=== PATIENT | female | born 1950 | race Caucasian/White ===

== ENCOUNTER 2018-02-21 18:04 | Inpatient (IN) | payer OTHER, MEDICAID ==
[~2018-02-21] VITALS: Ht 142.2 cm; Wt 125.2 kg
--- NOTE | 2018-02-21 18:00 | NUR ---
PATIENT ARRIVED VIA ON VENT FROM [facility]. PLACED ON VENTILATOR AC-12, 550, 100%, PEEP+5. SAO2-88% RR24 WITH ACCESSORY USE OF MUSCLES HR 118. SHILEY 8 XLT TRACHEOSTOMY TUBE WAS FOUND DEFLATED AND PARTIALLY OUT, I PUSHED TRACH BACK IN AND INFLATED CUFF, TIGHTEN TRACH TIES TO OBTAIN TIDAL VOLUMES. SAO2 INCREASED TO 92% RR- DECREASED TO 12 HR-111. AT 1950 ABG DONE AND RESULTS GIVEN TO DR. PERRY. DR. RICHMOND SAID TO INCREASE RR TO 18BPM.
[~2018-02-21 18:04] MED LIST: ACET-2619 PO; ASPI81CT89 PO; ATRN INH; BECL0.089 INH; BISA10SU1 RC; DOCU-299 PO; DOCU1TAB PO; EPOE10002 SUBQ; ESCI5TAB PO; ESOM40EC PO; FERR325E14 PO; FOLI1TAB19 PO; FURO-570 PO; GLU1I IM; LISI5TAB18 PO; MAGN400S60 PO; MAGN400T11 PO; METO5SOL19 PO; NA P135N9 RC; NOVN SUBQ; POLY15SO48 OP; PRON INH; SIMV20TA1 PO; VIC PO; [UNRECOGNIZED DRUG - CODE] PO
--- NOTE | 2018-02-21 18:07 | NUR ---
PT BIBA ALS TO BED 5
[2018-02-21 18:10] VITALS: BP 188/116
--- NOTE | 2018-02-21 18:10 | NUR ---
67 YO FEMALE BIB EMS FROM [facility] FOR ABDOMINAL PAIN AND SWELLING TO FACE AND LEGS. VENT TO TRACH RT AT BEDSIDE. pt nonverbal, respiratory distress noted. attached pt trach to vent, hooked pt to bedside monitor shows hr 150s, bp 188/116, o2 sats 80%, RESPIRATORY DISTRESS NOTED. PT UNABLE TO MAKE NEEDS KNOWN, EDEMA TO BOTH LEGS NOTED. MD MADE AWARE PT STATUS.
[2018-02-21] MEDS ORDERED: LINA5TAB PO (18:30)
[2018-02-21] MEDS ORDERED: LEVEMIR SUBQ (18:30)
[2018-02-21 18:32] VITALS: BP 153/78
[2018-02-21] MEDS ORDERED: methylPREDNISolone SS 125 MG/2 ML VIAL IVP ONE (18:35)
[2018-02-21] MEDS ORDERED: ALBUTEROL 0.083% 2.5 MG/3 ML NEBU INH ONE (18:35)
[2018-02-21] MEDS ORDERED: IPRATROPIUM 0.02% 0.5 MG/2.5 ML NEBU INH ONE (18:35)
--- NOTE | 2018-02-21 18:48 | NUR ---
XRAY AT BEDSIDE
[2018-02-21] MEDS ORDERED: FUROSEMIDE 100 MG/10 ML VIAL IVP ONE (18:55)
[2018-02-21] MEDS ORDERED: DEXAMETHASONE 10 MG/ML VIAL IVP ONE (18:55)
--- NOTE | 2018-02-21 19:15 | NUR ---
REPORT GIVEN TO BIBI
--- NOTE | 2018-02-21 19:15 | NUR ---
ASSUMED CARE OF PT AT THIS TIME. PT AWAITS LAB RESULTS AND MD DISPOSITION. WILL CONTINUE TO MONITOR.
[2018-02-21] MEDS ORDERED: DEXAMETHASONE 10 MG/ML VIAL ONE (19:30)
[2018-02-21 19:47] LABS: HEMATOCRIT 36.6 % (36-48); HEMOGLOBIN 11.6 g/dL (12.0-16.0); MEAN CORPUSCULAR HEMOGLOBIN 30 pg (27-31); MEAN CORPUSCULAR HGB CONC 32 g/dL (33-37); MEAN CORPUSCULAR VOLUME 94.2 fL (80-94); PLATELET COUNT (AUTO) 303 K/uL (140-450); RED BLOOD CELL COUNT(AUTO) 3.88 MIL/uL (4.20-5.40); RED CELL DISTRIBUTION WIDTH 15.3 % (11.6-13.7); WHITE BLOOD COUNT (AUTO) 21.4 K/uL (4.8-10.8)
[2018-02-21 20:08] LABS: PROTHROMBIN TIME 9.8 secs (10.8-13.4)
[2018-02-21 20:10] LABS: ANION GAP 11.4 (8-16); CARBON DIOXIDE 23.1 mmol/L (21-32); CREATININE 1.2 mg/dL (0.6-1.3); POTASSIUM 5.5 mmol/L (3.5-5.1)
[2018-02-21 20:15] LABS: ALBUMIN 3.5 g/dL (3.4-5.0); TOTAL BILIRUBIN 0.2 mg/dL (0.0-1.0)
[2018-02-21 20:31] LABS: EOSINOPHILS % (MANUAL) 2 % (0-4); LYMPHOCYTES % (MANUAL) 14 % (20-46); MONOCYTES % (MANUAL) 1 % (5-12); PROMYELOCYTES % 2 % (0-0)
[2018-02-21] MEDS ORDERED: PIPERACILLIN/TAZOBACTAM 3.375 GM in DEXTROSE 5% 50 ML IV ONE (20:45)
[2018-02-21] MEDS ORDERED: FUROSEMIDE 40 MG/4 ML VIAL IVP ONE (20:45)
[2018-02-21] MEDS ORDERED: LEVOFLOXACIN 750 MG/D5W PREMIX 150 ML IV ONE (20:45)
[2018-02-21] MEDS ORDERED: NITROGLYCERIN 2% 1 GM PKT TP ONE (20:45)
[2018-02-21] MEDS ORDERED: PIPERACILLIN/TAZOBACTAM 3.375 GM VIAL IV ONE (20:59)
[2018-02-21 21:08] VITALS: BP 132/28
[2018-02-21] MEDS ORDERED: ONDANSETRON 4 MG/2 ML VIAL IVP ONE (21:10)
--- NOTE | 2018-02-21 21:15 | NUR ---
PT AWAITS ADMISSION. NAD. VSS. WILL CONTINUE TO MONITOR.
[2018-02-21] MEDS ORDERED: ONDANSETRON 4 MG/2 ML VIAL ONE (21:16)
--- NOTE | 2018-02-21 21:46 | NUR ---
RT AT BEDSIDE
[2018-02-21] MEDS ORDERED: ACETAMINOPHEN 325 MG TAB PO PRN (22:15)
[2018-02-21] MEDS ORDERED: DEXTROSE 50% 50 ML SYR IVP PRN (22:15)
[2018-02-21] MEDS ORDERED: ZOLPIDEM 5 MG TAB PO PRN (22:15)
--- NOTE | 2018-02-21 22:40 | NUR ---
Patient will be admitted to care of [facility]. Admitted to ICU. Will go to room 1. Belongings list completed. Report to ANANT VÁZQUEZ.
--- NOTE | 2018-02-21 22:40 | NUR ---
PT ARRIVED ON ICU. RECEIVED BEDSIDE REPORT FROM ED BUNDLE SORTER RN, BIBI, FOR CONTINUITY OF CARE. PT IS AWAKE, NONVERBAL, ABLE TO NOD HEAD. PT IS ON TRACH TO VENT, FI02=90%, VT 550, RATE 18, FLOW 45L/MIN, PEEP 5, PMAX 80. PERRL, AFEBRILE, BP= 142/97, O2 SAT = 96%, HR = 109, TEMP 98.6. LUNG SOUND COARSE ON UPPER AND LOWER BILATERAL LOBES ON AUSCULTATION, BOWEL SOUND ACTIVE IN ALL FOUR QUADRANTS. NO GTUBE OR NGT IN PLACE. NORTON CATHETER IN PLACE, URINE IS CLEAR/YELLOW. SR ON EMERGENCY SERVICES PROFESSIONAL. LEFT FORE ARM 20 GAUGE, NOTHING INFUSING AT THIS TIME. GENERALIZED WEAKNESS 3+ ASSIST FOR REPOSITIONING. SKIN IS INTACT, REDNESS NOTED ON PERINEAL AREA AREA, SKIN IS WARM/DRY TO TOUCH. DRYNESS, FLAKINESS, ON SCALP. HOB ELEVATED ABOVE 30 DEG, BED IN LOWEST POSITION. PT IS WEARING GLASSESS. BELONGINGS ALL ITEMS ARRIVED ON PURPLE AND WHITE PURSE. ITEMS INCLUDE: BLACK WATCH, 2 HEADPHONES, DEODORANT, BOTTOM DENTURE, DENTURE ADHESIVE, SMALL TURQUOISE MIRROR, RED NAIL CHINESE, 1 TABLE KNIFE, 2 SPOONS, RED EYEBROW DEON, 3 PENS, 2 BOTTLES FATBURNER SUPPLEMENT PILLS, Perfect ChannelNG CELL PHONE (BLACK), Getable CELLPHONE (BLACK), REMOTE, BLUE TOOTH, SECOND PAIR OF GLASSES IN BURGUNDY CASE, (PATIENT WEARING ANOTHER PAIR OF GLASSES), BRACELET IN RED JEWELRY CASE, 2 RAYGOZA, 1 HAIRBRUSH, GREEN/WHITE SOCKS, BAG OF MARSHMELLOWS, MINI [place]ETAH PRINT PURSE, EQUATE LOTION, 4 CHARGERS (2 WHITE, 1 BLACK, 1 PURPLE)M, POCKET CALENDAR, PURPLE MIRROR, 4 THIN BRACELETS.
--- NOTE | 2018-02-21 22:45 | NUR ---
PATIENT TRANSFERRED TO ICU BED 1 VIA 100% AMBU BAG AND THEN PLACED BACK ON VENTILATOR AC-18, VT-550,, FIO2-90% PEEP +5
[2018-02-21 22:53] LABS: APPEARANCE,URINE SL CLOUDY (CLEAR); BILIRUBIN,URINE NEGATIVE (NEGATIVE); BLOOD, URINE 1+ (NEGATIVE); COLOR,URINE YELLOW (YELLOW); LEUKOCYTE ESTERASE ,URINE NEGATIVE (NEGATIVE); NITRITE, URINE NEGATIVE (NEGATIVE); PH,URINE 5.5 (5.0-9.0); UGLUCOSE NEGATIVE (NEGATIVE)
[2018-02-21 22:53] LABS: FREE T4 (FREE THYROXINE) 1.17 ng/dL (0.76-1.46); MAGNESIUM 1.9 mg/dL (1.8-2.4); PHOSPHORUS 5.3 mg/dL (2.5-4.9); THYROID STIMULATING HORMONE 2.72 uIU/mL (0.34-3.74)
[2018-02-21] MEDS: NACL 0.9% 1,000 ML IV SCH (23:15)
[2018-02-21 23:18] LABS: HYALINE CASTS, URINE 0-10 /LPF (None Seen); RBC,URINE 20-50 /HPF (0-5); YEAST,URINE Many /HPF (None Seen)
[2018-02-22] VITALS (24 sets, daily range): BP systolic 90–186; BP diastolic 50–96
[2018-02-22] MEDS ORDERED: HYDRAGUARD CREAM TP PRN (00:55)
[2018-02-22] MEDS ORDERED: MILD SOAP AND WATER TP PRN (00:55)
[2018-02-22] MEDS ORDERED: Z-GUARD PASTE TP PRN (00:55)
[2018-02-22] MEDS: HYDRAGUARD CREAM TP SCH ×2 (01:00→13:00)
[2018-02-22] MEDS: Z-GUARD PASTE TP SCH ×2 (01:00→13:00)
--- NOTE | 2018-02-22 01:10 | NUR ---
VAP ORAL CARE PROVIDED TO PATIENT; LEFT FOREARM PIV 20 GUAGE INFUSING NS AT 10MLS/HR. CALLED [facility], SPOKE TO KWESI, PROVIDED CONFIRMATION THAT PATIENT EATS ORALLY - MECHANICAL SOFT DIET, NO TUBE FEEDINGS.
[2018-02-22] MEDS ORDERED: BISACODYL 10 MG SUPP RC SCH (01:15)
[2018-02-22] MEDS ORDERED: FERR325E14 PO (01:15)
[2018-02-22] MEDS ORDERED: KEN.1C TP (01:15)
[2018-02-22] MEDS ORDERED: CHLO480L1 PO (01:15)
[2018-02-22] MEDS ORDERED: LISI5TAB18 PO (01:15)
[2018-02-22] MEDS ORDERED: POLYVINYL ALCOHOL 1.4% OP 15 ML SOL OP PRN (01:15)
[2018-02-22] MEDS ORDERED: DEXT1DRO5 OP (01:15)
[2018-02-22] MEDS ORDERED: XALOS OP (01:15)
[2018-02-22] MEDS ORDERED: MAGNESIUM HYDROXIDE 2400 MG/30 ML UDC PO SCH (01:15)
[2018-02-22] MEDS ORDERED: LACT10SO1 PO (01:15)
[2018-02-22] MEDS ORDERED: SODIUM PHOSPHATE 118 ML ENEM RC SCH (01:15)
[2018-02-22] MEDS ORDERED: LINA5TAB PO (01:15)
[2018-02-22] MEDS ORDERED: INSU100S53 SC (01:15)
[2018-02-22] MEDS: HYDROcodone/APAP 7.5/325 MG 1 TAB PO PRN ×2 (01:22→05:27)
--- NOTE | 2018-02-22 01:25 | NUR ---
RT A BEDSIDE TO ASSESS VENTILATOR; NO CHANGES MADE TO SETTINGS. PT IS AWAKE & IN STABLE CONDITION.
[2018-02-22] MEDS ORDERED: PIPERACILLIN/TAZOBACTAM 3.375 GM VIAL IV ONE (02:27)
[2018-02-22] MEDS ORDERED: PIPERACILLIN/TAZOBACTAM 3.375 GM in DEXTROSE 5% 50 ML IV SCH (03:00)
[2018-02-22] MEDS: ONDANSETRON 4 MG/2 ML VIAL IVP PRN ×2 (03:25→18:00)
[2018-02-22] MEDS ORDERED: HYDROcodone/APAP 10/325 MG 1 TAB TAB PO SCH (03:30)
--- NOTE | 2018-02-22 03:44 | NUR ---
PT HAD LARGE BOWEL MOVEMENT, SOFT/PASTY STOOL LARGE. UPON REPOSITIONG, PT PROJECTILE VOMITED BROWN FLUID AND STRAIGHT UP INTO THE AIR, ORAL SUCTIONING PROVIDED AT BEDSIDE AND HOB ELEVATED. WHEN ASKED IF SHE HAD NAUSEA SHE STATED YES. IVP ZOFRAN ADMINISTERED. FRESH LINEN, GOWN, AND PADS PROVIDED. HYDRAGUARD APPLIED TO SKIN AND PT REPOSITIONED. PILLOW SUPPORT PROVIDED. CT, RAAD, ARRIVED STATED SHE WAS UNCERTAIN IF PT WOULD BE ABLE TO FIT THE CT DUE TO LARGE GIRTH. DR. MONDRAGON UPDATED ON PT CONDITION. Addendum: 02/22/18 at 0354 by Lexie Sherman RN STOOL WAS DARK GREEN/BLACK IN COLOR.
--- NOTE | 2018-02-22 04:23 | NUR ---
RT, VALENTINA, AT BEDSIDE ADJUSTED FIO2 = 70, IC=582, RATE 18 RPM, FLOW 40L/MIN, PEEP=5, PMAX=75. PT IS AWAKE, HOB ELEVATE CLOSE TO 90 DEG, SCDS ON BILATERAL LEGS, AND PILLOW SUPPORT PROVIDED. 10MLS/HR NS INFUSING.
--- NOTE | 2018-02-22 04:50 | NUR ---
LAB AT BEDSIDE TO DRAW BLOOD.
--- NOTE | 2018-02-22 05:05 | NUR ---
CALLED DR. MONDRAGON, UPDATED ON MEDS GIVEN (AMBIEN/NORCO) PRIOR TO PROJECTILE VOMITING, ZOFRAN GIVEN AFTERWARDS. HELD THE ONE TIME DOSE OF NORCO DUE TO PATIENT SLEEPING. ASKED IF CONSIDERING CHANGING MEDS TO IV DUE TO NAUSEA/VOMITING. STATED TO KEEP THE PO MEDS ORDERED FOR NOW. WILL CARRY OUT.
[2018-02-22 05:06] LABS: HEMATOCRIT 32.8 % (36-48); HEMOGLOBIN 10.4 g/dL (12.0-16.0); MEAN CORPUSCULAR HEMOGLOBIN 30 pg (27-31); MEAN CORPUSCULAR HGB CONC 32 g/dL (33-37); MEAN CORPUSCULAR VOLUME 94.1 fL (80-94); PLATELET COUNT (AUTO) 257 K/uL (140-450); RED BLOOD CELL COUNT(AUTO) 3.48 MIL/uL (4.20-5.40); WHITE BLOOD COUNT (AUTO) 28.3 K/uL (4.8-10.8)
--- NOTE | 2018-02-22 05:35 | NUR ---
BLADIMIR (HOUSE SOUP), RONAN AND RAAD(CT) AT BEDSIDE TO MEASURE GIRTH OF PATIENT, [address] SCAN = WAS 70 INCHES. PT WEIGHT RECORDED AT 296.4LBS. CT REMAINS TO BE CANCELLED AT THIS TIME.
[2018-02-22 05:44] LABS: ANION GAP 11.1 (8-16); CARBON DIOXIDE 22.6 mmol/L (21-32); CREATININE 1.5 mg/dL (0.6-1.3)
[2018-02-22 05:45] LABS: CHOL/HDL RATIO 5.4 (1-4.5); MAGNESIUM 1.9 mg/dL (1.8-2.4); PHOSPHORUS 4.2 mg/dL (2.5-4.9)
[2018-02-22 05:58] LABS: POTASSIUM 5.7 mmol/L (3.5-5.1)
--- NOTE | 2018-02-22 06:06 | NUR ---
CONTACTED DR. MONDRAGON, INFORMED OF PT CRITICAL LAB VALUES K=5.7 AND GLUCOSE 455.
[2018-02-22] MEDS: BLOOD GLUCOSE MONITORING 1 DEV DEV FS SCH ×4 (06:31→20:50)
--- NOTE | 2018-02-22 06:45 | NUR ---
REPORTED CRITICAL LAB 455 BLOOD GLUCOSE. RECHECKED IMMEDIATELY AND BG WAS 439. GAVE MAX DOSE HUMALOG INSULIN 10 UNITS PER SLIDING SCALE, ENDORSED TO NEXT SHIFT TO RECHECK BG ([facility]). PT IS ON MECHANICAL SOFT/ 60 G CCHO DIET.
[2018-02-22] MEDS: INSULIN LISPRO SLIDING SCALE 100 UNITS/ML VIAL SUBQ PRN ×4 (06:58→21:40)
[2018-02-22] MEDS: SODIUM POLYSTYRENE 15 GM/60 ML UDBTL PO ONE ×3 (07:00→10:01)
[2018-02-22 07:09] LABS: LYMPHOCYTES % (MANUAL) 3 % (20-46); MONOCYTES % (MANUAL) 4 % (5-12)
--- NOTE | 2018-02-22 07:20 | NUR ---
PROVIDED BEDSIDE REPORT TO MORNING SHIFT RNRAFAELA, FOR CONTINUITY OF CARE.
--- NOTE | 2018-02-22 07:20 | NUR ---
RECEIVED REPORT FROM NIGHT NURSE GURPREET, PATIENT AWAKE AND ALERT. TRACH TO VENT; VENT SETTINGS FIO2-70 TV-550 R-18 PEEP-5. PUPILS ROUND AND REACTIVE TO LIGHT. SKIN WARM DRY AND INTACT, REDNESS NOTED ON BUTTOCKS AND ABD FOLD. LUNG SOUNDS COARSE BILATERALLY. S1S2 HEARD. BOWEL SOUNDS ACTIVE IN ALL QUADRANTS. VSS. NSR ON MONITOR AT THIS TIME. WILL CONTINUE TO MONITOR.
[2018-02-22] MEDS: LACTOBACILLUS RHAMNOSUS GG 1 EACH CAP PO SCH ×4 (08:00→16:24)
--- NOTE | 2018-02-22 08:03 | NUR ---
CONTACTED [facility] REGARDING PATIENT'S VACCINATION RECORDS, BORIS SORENSEN GAVE ME INFORMATION. HE ALSO STATED THAT PATIENT DOES NOT NEED PMV FOR EATING.
[2018-02-22] MEDS: MAGNESIUM OXIDE 400 MG TAB PO SCH ×3 (08:12→10:03)
[2018-02-22] MEDS: FLUCONAZOLE 100 MG TAB PO SCH ×3 (08:12→10:03)
[2018-02-22] MEDS: ASPIRIN 81 MG TAB.CHEW PO SCH ×3 (08:12→10:02)
[2018-02-22] MEDS: DOCUSATE SODIUM 100 MG GELCAP PO SCH ×3 (08:13→20:54)
[2018-02-22] MEDS: FERROUS SULFATE 325 MG TABEC PO SCH ×3 (08:13→20:54)
[2018-02-22] MEDS: PIPER/TAZO 2.25GM/D5W PREMIX 50 ML IV SCH ×2 (08:14→15:41)
[2018-02-22] MEDS: MILD SOAP AND WATER TP SCH (08:16)
[2018-02-22] MEDS: LISINOPRIL 5 MG TAB PO SCH ×3 (08:23→09:55)
--- NOTE | 2018-02-22 08:30 | NUR ---
PATIENT ORAL MEDS HELD. WAITING FOR CLARIFICATION ON TRACH OFF DEFLATION REQUEST. DR BRYANT AWARE. RT AWARE. WILL CONTINUE TO MONITOR.
--- NOTE | 2018-02-22 08:38 | NUR ---
PER TRANSFER PACKET PMV WITH MEALS, CONTACTED [facility] AGAIN TO CLARIFY ORDER. PER NICHOLE RT, THEY HAVE BEEN FEEDING HER WITHOUT PMV AND CUFF DEFLATED. RESIDENT PHYSICIAN DR BRYANT MADE AWARE. RT MADE AWARE WELL.
[2018-02-22] MEDS: CHLORHEXIDINE GLUCONATE 0.12% 473 ML LIQ MM SCH ×2 (09:00→21:55)
[2018-02-22] MEDS ORDERED: TRIAMCINOLONE 0.1% CRM 15 GM TUBE TP SCH (09:00)
[2018-02-22] MEDS ORDERED: LACTULOSE 20 GM/30 ML UDC PO SCH ×2 (09:00→10:11)
[2018-02-22] MEDS: CARVEDILOL 3.125 MG TAB PO SCH ×2 (09:00→10:02)
--- NOTE | 2018-02-22 09:06 | NUR ---
PATIENT HAS BEEN SCREENED AND CATEGORIZED HIGH NUTRITION RISK. PATIENT WILL BE SEEN WITHIN 1-2 DAYS OF ADMISSION. 02/22/18 02/23/[address]
--- NOTE | 2018-02-22 09:09 | NUR ---
RCV'D PT ON MECHANICAL VENTILATION AT 0900 PT IS TRACHED WITH SHILEY [address] XLT. TRACH IS IN PLACE AND SECURED. VENT IS CONNECTED TO RED OUTLET. SETTINGS CHARTED. AMBU BAG AT BEDSIDE. PT WAS CHECKED AND HHN TX WAS GIVEN EARLIER BY RT JUSTIN. NO SOB OR DISTRESS NOTED. WILL CONTINUE TO MONITOR.
[2018-02-22] MEDS ORDERED: INSULIN LANTUS 100 UNITS/ML 10 ML VIAL SUBQ SCH (09:12)
--- NOTE | 2018-02-22 09:37 | NUR ---
DR. DE LEON CALLED BACK ORDER FOR TRACH CUFF DEFLATION CLARIFIED. MAY DEFLATE CUFF AND GIVE PO MEDS. RT MADE AWARE.
--- NOTE | 2018-02-22 10:02 | NUR ---
DR PATEL IN UNIT. CHANGES RR TO 20 VT 500, 60% FIO2. ORDER CHANGED ON VENT. NO SOB OR DISTRESS NOTED. WILL CONTINUE TO MONITOR. Addendum: 02/22/18 at 1030 by [place] [address] RT PER DR PATEL TO DEFLATE PT'S CUFF WHEN SHE EATS OR TAKE PO MEDICINE. RN AT BEDSIDE. WILL FOLLOW WITH ORDER. CUFF IS DEFLATED FOR PT TO TAKE MEDS. DR PATEL AT BEDSIDE.
[2018-02-22] MEDS ORDERED: metroNIDAZOLE 500 MG/NS PREMIX 100 ML IV SCH (10:12)
[2018-02-22] MEDS: ALBUTEROL SULFATE/IPRATROPIU 3 ML SOL IH SCH ×4 (10:22→23:28)
--- NOTE | 2018-02-22 10:54 | NUR ---
RESUMED NURSING CARE, REPORT GOT FROM ANANT CHAMBERS
--- NOTE | 2018-02-22 11:00 | NUR ---
PT AWAKE, ALERT. ABLE TO FOLLOW COMMANDS. DR. BRYANT EXPLAINED PT REGARDING RISKS AND BENEFITS OF CENTRAL LINE INSERTION. PT AGREED AND SIGNED CONSENT FORM.
[2018-02-22] MEDS ORDERED: LORazepam 2 MG/ML VIAL IVP PRN (11:05)
[2018-02-22] MEDS ORDERED: HYDROmorphone 1 MG/ML AMP IVP PRN (11:10)
[2018-02-22] MEDS ORDERED: LORazepam 2 MG/ML VIAL IVP SCH (11:12)
[2018-02-22] MEDS ORDERED: HYDROmorphone 1 MG/ML AMP IVP SCH (11:13)
--- NOTE | 2018-02-22 11:45 | NUR ---
DR. BRYANT STARED CENTRAL LINE INSERTION AND US TECH AT BEDSIDE, TIME OUT FORM DONE.
--- NOTE | 2018-02-22 12:08 | NUR ---
CHECKED BS 408, RECHECKED 427, NOTIFIED , PER DR. BRYANT GIVE SLIDING SCALE INSULIN 10 UNITS TO THE ARM INSTEAD OF ABD. WILL CARRY OUT.
--- NOTE | 2018-02-22 12:10 | NUR ---
CENTRAL LINE INSERTION IS DONE , CALLED X-RAY TO CHECK PLACEMENT.
--- NOTE | 2018-02-22 12:30 | NUR ---
US TECH AT BEDSIDE.
[2018-02-22] MEDS ORDERED: SODIUM BICARBONATE 8.4% 50 MEQ in NACL 0.45% 1,000 ML IV SCH (13:30)
--- NOTE | 2018-02-22 13:38 | NUR ---
US STILL IN PROCESS.
[2018-02-22] MEDS: metroNIDAZOLE 500 MG/NS PREMIX 100 ML IV SCH ×2 (13:48→20:57)
[2018-02-22] MEDS ORDERED: SIMETHICONE 40 MG/0.6 ML PO SCH ×2 (15:25→15:45)
--- NOTE | 2018-02-22 15:35 | NUR ---
02/22/18 RD INITIAL ASSESSMENT COMPLETED PLEASE REFER TO NUTRITION ASSESSMENT UNDER CARE ACTIVITY FOR ESTIMATED NUTRITIONAL NEEDS. 1. CONTINUE CCHO 60 GM, RENAL, NA2GM, MECH SOFT DIET TOLERATED 2. RD TO FOLLOW-UP 2-3 DAYS, HIGH RISK YUDY CABRALES, RD
[2018-02-22] MEDS ORDERED: PANTOPRAZOLE 40 MG INJ VIAL IVP SCH (16:00)
--- NOTE | 2018-02-22 16:10 | NUR ---
TURNED AND REPOSITIONED PT. ORAL CARE GIVEN, NANCY CHECKED 397, SLIDING SCALE INSULIN GIVEN ORDERED. Addendum: 02/22/18 at 1836 by Lenard Allison RN BS 391 INSTEAD OF 397
[2018-02-22] MEDS: INSULIN LANTUS 100 UNITS/ML 10 ML VIAL SUBQ SCH (16:17)
[2018-02-22] MEDS: SIMETHICONE 40 MG/0.6 ML PO SCH (17:58)
--- NOTE | 2018-02-22 18:00 | NUR ---
PT C/O NAUSEOUS , ZOFRAN GIVEN.
--- NOTE | 2018-02-22 18:57 | NUR ---
I WAS CALLED IN ICU TO DEFLATED THE CUFF, PER DR BRYANT FOR PT TO EAT.
--- NOTE | 2018-02-22 19:05 | NUR ---
PT DID NOT EAT, SHE SAID SHE DOES NOT WANT TO EAT AFTER DEFLATING THE CUFF.
--- NOTE | 2018-02-22 19:25 | NUR ---
RECEIVED BEDSIDE REPORT FROM MORNING SHIFT RN, ARNALDO, FOR CONTINUITY OF CARE. PT IS WAS LYING QUIETLY AT THIS TIME. ABLE TO MAKE NEEDS KNOWN, NODS HEAD IN RESPOND TO COMMANDS. AFEBRILE.PERRL. RT AT BEDSIDE AT THIS TIME. TRACH TO VENT. FIO2 40%, VT= 300, RATE 20 RPM, FLOW 45 L/MIN, PEEP=5, PMAX 70. INTERMITTENT NON-PRODUCTIVE COUGH. SR ON HOUSING OFFICER. LUNG SOUNDS COARSE ON UPPER LOBES, DIMINISHED ON LOWER BILATERAL LOBES. BOWEL SOUNDS ACTIVE IN ALL FOUR QUADRANTS. NORTON CATHER IN PLACE, URINE IS LAYLA IN COLOR. RIGHT IJ TRIPLE LUMEN CATHETER INFUSING SODIUM BICARB AT 50ML/HR AND NORMAL SALINE AT 10MLS/HR. LEFT FOREARM 20 GAUGE, NOT INFUSING YET INTACT. SALINE FLUSHED W/ BLOOD RETURN NOTED. FALL RISK, STANDARD, AND ASPIRATION PRECAUTIONS MAINTAINED, HOB ELEVATED ABOVE 45 DEG. SCDS OFF BILATERAL LEGS, PILLOW SUPPORT PROVIDED.
--- NOTE | 2018-02-22 19:25 | NUR ---
REPORT GIVEN TO GURPREET, PT BP WAS HIGH AT 1900 PT WAS COUGHING. PT CALMS DOWN AT THIS MOMENT. BP 149/63, HR 91, O2 SATS 94%. RR 24. MADE GURPREET RN AWARE.
[2018-02-22] MEDS: LATANOPROST 0.005% OP 2.5 ML BTL OP SCH (21:00)
[2018-02-22] MEDS ORDERED: LATANOPROST 0.005% OP 2.5 ML BTL OP SCH (21:00)
--- NOTE | 2018-02-22 21:30 | NUR ---
CALLED DR. MONDRAGON (PER CHARGE NURSE, RONAN) INFORMED DOCTOR THAT PT MOST CURRENT BG READING WAS 400 AND THAT PT BG HAD BEEN RUNNING CONSISTENTLY HIGH 400'S AND TO CONSIDER ADJUSTING INSULIN COVERAGE. DR. MONDRAGON ORDERED 15 UNITS LISPRO TO BE GIVEN NOW. WILL CARRY OUT.
[2018-02-22] MEDS ORDERED: glipiZIDE 5 MG TAB PO SCH (21:45)
--- NOTE | 2018-02-22 21:58 | NUR ---
DEFLATED CUFF TEMPORARILY TO GIVE PO MEDS. CUFF REINFLATED ONCE MED ADMINISTRATION COMPLETE. PT IS SITTING UPRIGHT IN BED, PILLOW SUPPORT ON HEAD AND LEGS. IN STABLE CONDITION AT THIS TIME.
[2018-02-22] MEDS: NACL 0.9% 1,000 ML IV SCH (22:15)
--- NOTE | 2018-02-22 23:12 | NUR ---
PT SLEEPING IN BED APPEARS TO BE WITHOUT DISTRESS. VSS BP: 129/67 O2=97%, RR=22, HR 79. URINE OUTPUT = 775ml CLEAR/LAYLA IN COLOR.
--- NOTE | 2018-02-22 23:20 | NUR ---
PT REPOSITIONED COMPLAINTS OF NAUSEA & PAIN IN ABDOMEN AND RIGHT LEG. HOB AND LEGS ELEVATED. PT DENIES NEED TO HAVE A BOWEL MOVEMENT.
--- NOTE | 2018-02-22 23:30 | NUR ---
RT AT BEDSIDE PER PT REQUEST FOR BREATHING TREATMENT. SUCTIONING PROVIDED WITH LIMITED SECRETIONS. PT REFUSED VAP ORAL CARE/MOUTH RINSE.
[2018-02-23] VITALS (17 sets, daily range): BP systolic 115–188; BP diastolic 44–105
[2018-02-23] MEDS: Z-GUARD PASTE TP SCH ×2 (01:37→13:42)
[2018-02-23] MEDS: HYDRAGUARD CREAM TP SCH ×2 (01:37→13:39)
--- NOTE | 2018-02-23 02:05 | NUR ---
PT IS SLEEPING QUIETLY, APPEARS TO BE WITHOUT DISTRESS.
[2018-02-23] MEDS: PIPER/TAZO 2.25GM/D5W PREMIX 50 ML IV SCH ×3 (02:19→15:58)
[2018-02-23] MEDS: HYDROcodone/APAP 7.5/325 MG 1 TAB PO PRN (03:14)
--- NOTE | 2018-02-23 03:30 | NUR ---
PT HAD BOWEL MOVEMENT, DARK GREEN/BLACK IN COLOR. FRESH PAD, LINEN PROVIDED. CLEANSED PERINEAL AREA AND APPLIED ZGUARD AND HYDRAGUARD TO AFFECTED AREAS (UNDER ABDOMINAL FOLD/SACRAL COCCYX AREA) PER ORDER. CATHETER CARE PROVIDED. PT REFUSES ORAL CARES/RINSE.
--- NOTE | 2018-02-23 04:10 | NUR ---
CALLED DR. MONDRAGON, UPDATED ON PT CONDITION: AGITATED DUE TO PAIN IN ABDOMEN, DENIES NAUSEA REQUESTING MORE PAIN MEDICATION AFTER PO NORCO GIVEN ABOUT AN HOUR AGO. DR. MONDRAGON TO PUT IN ORDER FOR ADDITIONAL ONE TIME DOSE OF NORCO. WILL RELAY TO PATIENT.
[2018-02-23] MEDS ORDERED: HYDROcodone/APAP 10/325 MG 1 TAB TAB PO SCH (04:30)
[2018-02-23] MEDS: metroNIDAZOLE 500 MG/NS PREMIX 100 ML IV SCH ×3 (04:42→21:14)
[2018-02-23] MEDS: ALBUTEROL SULFATE/IPRATROPIU 3 ML SOL IH PRN ×2 (04:44→14:15)
--- NOTE | 2018-02-23 04:51 | NUR ---
SYDNIE BURNETT, AT BEDSIDE TO ADMINISTER BREATHING TREATMENT PER PT REQUEST.
--- NOTE | 2018-02-23 05:07 | NUR ---
PT IS RELAXED, SLEEPING QUIETLY AND IN STABLE CONDITION. VS: BP 162/73, RR=24, OX SAT =95%, HR = 80.
--- NOTE | 2018-02-23 05:37 | NUR ---
XRAY AT BEDSIDE.
--- NOTE | 2018-02-23 05:55 | NUR ---
DR. BRYANT AT BEDSIDE, UPDATED ON PATIENT CONDITION.
[2018-02-23] MEDS ORDERED: glipiZIDE 5 MG TAB PO SCH (06:30)
--- NOTE | 2018-02-23 06:40 | NUR ---
BG CHECK 367; 10 UNITS INSULIN GIVEN PER SLIDING SCALE.
[2018-02-23] MEDS: BLOOD GLUCOSE MONITORING 1 DEV DEV FS SCH ×4 (06:41→21:14)
[2018-02-23] MEDS: INSULIN LISPRO SLIDING SCALE 100 UNITS/ML VIAL SUBQ PRN ×4 (06:50→21:27)
--- NOTE | 2018-02-23 07:04 | NUR ---
PT ASLEEP NO HHN NEEDED
--- NOTE | 2018-02-23 07:13 | NUR ---
PROVIDED BEDSIDE REPORT TO MORNING SHIFT RNRONDA, FOR CONTINUITY OF CARE.
--- NOTE | 2018-02-23 07:25 | NUR ---
RECEIVED REPORT FROM GURPREET RN, SHE IS TRACH TO VENT AC 20 VT 500 FIO2 40% PEEP OF 5O2 SAT 95% . SKIN DRY WARM TO TOUCH .NON PITTING EDEMA +2. TLC CENTRAL LINE , ABDOMEN LARGE ROUND BOWEL IS DIFFICULT TO HEAR. HAS NORTON,S CATH DRAIN CLEAR YELLOW URINE.
--- NOTE | 2018-02-23 07:35 | NUR ---
MAKING ROUND WITH THE RESIDENT TEAM, WILL D/C STOOL CULTURE FOR C-DIFF. DUE TO PATIENT ALREADY RECEIVED THE STOOL SOFTENER.
[2018-02-23] MEDS: FLUCONAZOLE 100 MG TAB PO SCH (08:26)
[2018-02-23] MEDS: MAGNESIUM OXIDE 400 MG TAB PO SCH ×2 (08:26→08:31)
[2018-02-23] MEDS: DOCUSATE SODIUM 100 MG GELCAP PO SCH ×2 (08:26→21:17)
[2018-02-23] MEDS: FERROUS SULFATE 325 MG TABEC PO SCH ×2 (08:27→21:17)
[2018-02-23] MEDS: CARVEDILOL 3.125 MG TAB PO SCH (08:27)
[2018-02-23] MEDS: ASPIRIN 81 MG TAB.CHEW PO SCH ×2 (08:27→08:32)
[2018-02-23] MEDS: LACTOBACILLUS RHAMNOSUS GG 1 EACH CAP PO SCH ×3 (08:27→16:41)
[2018-02-23 08:38] LABS: BASOPHILS % (AUTO) 0.1 % (0.0-2.0); HEMATOCRIT 27.4 % (36-48); LYMPHOCYTES # (AUTO) 0.6 K/uL (2.5-16.5); MEAN CORPUSCULAR HEMOGLOBIN 30 pg (27-31); MEAN CORPUSCULAR HGB CONC 32 g/dL (33-37); MEAN CORPUSCULAR VOLUME 91.9 fL (80-94); MONOCYTES # (AUTO) 0.7 K/uL (0.8-1.0); MONOCYTES % (AUTO) 4.7 % (1.7-9.3); NEUTROPHILS # (AUTO) 14.4 K/uL (1.8-7.7); NEUTROPHILS % (AUTO) 91.2 % (42.2-75.2); PLATELET COUNT (AUTO) 191 K/uL (140-450); RED BLOOD CELL COUNT(AUTO) 2.98 MIL/uL (4.20-5.40); RED CELL DISTRIBUTION WIDTH 15.1 % (11.6-13.7); WHITE BLOOD COUNT (AUTO) 15.7 K/uL (4.8-10.8)
--- NOTE | 2018-02-23 08:45 | NUR ---
C/O PAIN ON FRONT OF ABDOMEN. MEDICATION GIVEN ORDER.
[2018-02-23 08:50] LABS: HEMOGLOBIN 8.9 g/dL (12.0-16.0)
[2018-02-23 08:57] LABS: MAGNESIUM 1.9 mg/dL (1.8-2.4)
[2018-02-23] MEDS: CHLORHEXIDINE GLUCONATE 0.12% 473 ML LIQ MM SCH ×2 (09:00→21:16)
[2018-02-23] MEDS ORDERED: PANTOPRAZOLE 40 MG INJ VIAL IVP SCH (09:00)
[2018-02-23] MEDS: MILD SOAP AND WATER TP SCH (09:00)
[2018-02-23] MEDS: SIMETHICONE 40 MG/0.6 ML PO SCH ×2 (09:00→13:40)
[2018-02-23 09:18] LABS: ANION GAP 8.7 (8-16); CARBON DIOXIDE 25.7 mmol/L (21-32); CREATININE 1.5 mg/dL (0.6-1.3); POTASSIUM 4.4 mmol/L (3.5-5.1)
--- NOTE | 2018-02-23 09:20 | NUR ---
SCHEDULE MED GIVEN , ABLE EAT MARCOS APPLE SOUCE AND A LITTLE OF HOT CEREAL.
--- NOTE | 2018-02-23 10:40 | NUR ---
SEEN BY DR. DE LEON AT BED SIDE. ORDER PT. TO TELE FOR CONTINUOUS CARE. DR BRYANT ALSO AT BEDSIDE.
[2018-02-23] MEDS ORDERED: BISACODYL 10 MG SUPP RC PRN (10:42)
--- NOTE | 2018-02-23 11:15 | NUR ---
LAB CALLED PT MRSA IN NARES FOUND . DR BRYANT NOTIFIED PT PUT ON CONTACT ISOLATION .PROTOCOL FO MRSA START.
[2018-02-23] MEDS ORDERED: PROBIOTIC SCREEN 1 EA MISC MC PRN (11:25)
--- NOTE | 2018-02-23 11:37 | NUR ---
Mountain Bike Guide Note: Per Fabiola from [facility] , patient is on a 7 day bed hold.
--- NOTE | 2018-02-23 11:45 | NUR ---
BL. SUGAR 30-2 IN SULIN COVER ORDERED.
[2018-02-23] MEDS: ALBUTEROL SULFATE/IPRATROPIU 3 ML SOL IH SCH ×2 (12:32→19:13)
[2018-02-23] MEDS: NACL 0.9% 1,000 ML IV SCH ×3 (13:38→23:46)
[2018-02-23] MEDS: CHLORHEXADINE GLUC 2% CLOTH TP SCH (13:41)
--- NOTE | 2018-02-23 14:30 | NUR ---
C/O PAIN AROUND NECK AND ABDOMEN 11/27 ,MEDICATION ORDERED.
--- NOTE | 2018-02-23 15:40 | NUR ---
TRANSFER TO RM 108 I BED WITH RT BAGGING, CONDITION STABLE DURING TRANSFER. REPORT GIVE TO EDDA RN AT BED SIDE.
--- NOTE | 2018-02-23 15:40 | NUR ---
TRANSFERRED PT FROM ICU TO TELE WITH NO INCIDENT. CHANGED VENT. VENT IS CONNECTED TO RED OUTLET. ALARMS AUDIBLWE. NO SOB OR DISTRESS NOTED.
--- NOTE | 2018-02-23 16:30 | NUR ---
PT APPEARS ANXIOUS CONSTANTLY PRESSING CALL ARELLANO FOR SUCTION, TV, NEB TREATMENT, WATER, RESP RATE INCREASED WHEN SOMEONE IS IN THE ROOM, PT APPEARS IN NO RESP DISTRESS WHEN NO ONE IS AROUND, PT AGREEABLE FOR MEDICATION TO CALM HER DOWN, DR JIMENEZ NOTIFIED
[2018-02-23] MEDS: LORazepam 1 MG TAB PO PRN (16:41)
[2018-02-23] MEDS: ATORVASTATIN 20 MG TAB PO SCH (16:42)
[2018-02-23] MEDS: INSULIN LANTUS 100 UNITS/ML 10 ML VIAL SUBQ SCH (16:46)
--- NOTE | 2018-02-23 16:47 | NUR ---
Special Distribution Clerk Note: Per patient's sister Kim Arredondo , she would like patient to be transferred to another subacute facility upon discharge. She stated "there is a lot of drama at [facility] and they keep changing administration so it's pointless talking to them". I explained to her that I will contact other subacute facilities and inquire if they have a contract with patient's health insurance. She verbalized understanding and stated she is in agreement with patient returning to [facility] if none of the subacute facilities contacted are able to accept.
--- NOTE | 2018-02-23 17:25 | NUR ---
PT NOW SLEEPING QUIETLY, RESP EVEN UNLABORED ON TRACH TO VENT.
--- NOTE | 2018-02-23 19:15 | NUR ---
REPORT GIVEN TO NURSING PROGRAM COORDINATOR NURSE, PT IN STABLE CONDITION
--- NOTE | 2018-02-23 19:16 | NUR ---
RECEIVED REPORT FROM DAYSIDFT NURSE AT BEDSIDE FOR CONTINUITY OF CARE. PT AAOX4. PT IV IS LFA 20G SALINE LOCK AND RIJ CENTRAL LINE NS AT 75ML/HR. PT IS TRACH TO VENT FI02 40% PT RR 24. PT HAS NORTON IN PLACE. NO SOB NO S/S OF DISTRESS. PT ABLE TO SWALLOW PILLS AND EAT DIET CCHO MECHANICAL SOFT. PT IS MRSA NARES +. BED LOWERED CALL LIGHT WITHIN REACH WILL CONTINUE TO MONITOR.
--- NOTE | 2018-02-23 19:17 | NUR ---
RECEIVED TRACH PT ON W SHILEY 8 XLT ON VENT SETTINGS: AC/VC 20, 500,+5,40%. AIRWAY IS SECURED AND PATENT. VENT ALARMS ARE ON AND AUDIBLE. VENT IS PLUGGED INTO RED OUTLET AND AMBU BAG IS AT BEDSIDE. SXN SCANT THIN WHITE SXNS. WILL CONTINUE TO MONITOR.
--- NOTE | 2018-02-23 20:30 | NUR ---
PT ABLE TO SWALLOW LIQUIDS AND PILLS FINE. WILL CONTINUE TO MONITOR.
[2018-02-23] MEDS: LATANOPROST 0.005% OP 2.5 ML BTL OP SCH (21:16)
[2018-02-24] VITALS: BP 126/49
[2018-02-24] MEDS: ALBUTEROL SULFATE/IPRATROPIU 3 ML SOL IH PRN ×4 (00:53→16:50)
[2018-02-24] MEDS: Z-GUARD PASTE TP SCH ×2 (01:12→13:00)
[2018-02-24] MEDS: HYDRAGUARD CREAM TP SCH ×2 (01:12→13:00)
--- NOTE | 2018-02-24 02:00 | NUR ---
PT REQUESTING FOR BREATHING TREATMENT FOR THE 3RD TIME. PT FEELS SHE CANT BREATH BUT O2 SAT IS AT 99%. WILL CALL RT. FOR BREATHING TREATMENT.
[2018-02-24] MEDS: PIPER/TAZO 2.25GM/D5W PREMIX 50 ML IV SCH ×3 (03:27→15:16)
[2018-02-24 04:00] VITALS: BP 147/69
--- NOTE | 2018-02-24 04:00 | NUR ---
PT SLEEPING NO SOB NO S/S OF DISTRESS ON RA. WILL CONTINUE TO MONITOR.
[2018-02-24] MEDS: metroNIDAZOLE 500 MG/NS PREMIX 100 ML IV SCH ×3 (05:16→20:09)
[2018-02-24] MEDS: BLOOD GLUCOSE MONITORING 1 DEV DEV FS SCH ×4 (05:22→21:21)
[2018-02-24] MEDS: INSULIN LISPRO SLIDING SCALE 100 UNITS/ML VIAL SUBQ PRN ×3 (05:26→17:52)
[2018-02-24] MEDS: ALBUTEROL SULFATE/IPRATROPIU 3 ML SOL IH SCH ×3 (07:22→19:35)
--- NOTE | 2018-02-24 07:25 | NUR ---
ENDORSED REPORT TO DAYSHIFT AT BEDSIDE FOR CONTINUITY OF CARE.
--- NOTE | 2018-02-24 07:25 | NUR ---
RECEIVED REPORT FROM NIGHTSHIFT NURSE AT BEDSIDE. PATIENT IS AWAKE AT THIS TIME. PATIENT IS ALERT AND ORIENTED X4. PATIENT IS TRACH TO VENT. VENT SETTINGS IN PLACE. RIGHT IJ CENTRAL LINE NOTED RUNNING NORMAL SALINE. PERIPHERAL IV NOTED ON LEFT FOREARM 20 G RUNNING 10 ML. PATIENT IS WEARING GLASSES AND IS IN HIGH FOWLERS POSITION. LOWERED BED TO LOWEST SETTING. UPDATED BOARD IN PATIENT'S ROOM. APPROPRIATE SIGNS PLACED OUTSIDE OF PATIENT'S ROOM. WILL CONTINUE TO MONITOR PATIENT.
--- NOTE | 2018-02-24 07:43 | NUR ---
RECIVED PT ON VENT WITH SETTINGS CHARTED BREATH SOUNDS PRESENT BILAT DIMINISHED SXN PT WITH MIN MARC SECS TRACH SITE SECURE VENT PLUGGED INTO RED OUTLET AMBU BAG AT BEDSIDE
--- NOTE | 2018-02-24 08:51 | NUR ---
Supervisor Scouring Pads Note: I faxed inquiries to the following subacute facilities: [facility] & [facility] : [facility] : Per Genoveva, they don't have any beds in their subacute unit at this time. Per Carmen from [facility] , they dont have any beds available in their subacute unit. Per patient's sister Kim Arredondo , she is in agreement with patient returning to [facility] if none of the subacute facilities contacted are able to accept, made aware. Addendum: 02/24/18 at 0988 by Sierra WORTHINGTON Per Pernell from [facility] , no female beds available at this time. Addendum: 02/24/18 at 1236 by Sierra WORTHINGTON Per Lelia from [facility] , they don't have any female beds available in their subacute unit at this time.
[2018-02-24 08:55] VITALS: BP 113/59
[2018-02-24] MEDS: TRIAMCINOLONE 0.1% CRM 15 GM TUBE TP SCH (09:00)
[2018-02-24] MEDS: MILD SOAP AND WATER TP SCH (09:00)
[2018-02-24] MEDS: LACTOBACILLUS RHAMNOSUS GG 1 EACH CAP PO SCH ×3 (09:10→16:15)
[2018-02-24] MEDS: DOCUSATE SODIUM 100 MG GELCAP PO SCH ×2 (09:10→20:10)
[2018-02-24] MEDS: FERROUS SULFATE 325 MG TABEC PO SCH ×2 (09:10→20:10)
[2018-02-24] MEDS: MAGNESIUM OXIDE 400 MG TAB PO SCH (09:10)
[2018-02-24] MEDS: ASPIRIN 81 MG TAB.CHEW PO SCH (09:11)
[2018-02-24] MEDS: CARVEDILOL 3.125 MG TAB PO SCH (09:12)
[2018-02-24] MEDS: FLUCONAZOLE 100 MG TAB PO SCH (09:12)
[2018-02-24] MEDS: CHLORHEXADINE GLUC 2% CLOTH TP SCH ×2 (09:13→13:42)
--- NOTE | 2018-02-24 09:21 | NUR ---
PT ASLEEP AT THIS TIME NO RESPIRATORY DISTRESS NOTED. WILL CONTINUE TO MONITOR.
[2018-02-24 09:24] LABS: EOSINOPHILS # (AUTO) 0.1 K/uL (0-0.4); EOSINOPHILS % (AUTO) 0.3 % (0.0-4.0); HEMATOCRIT 27.1 % (36-48); HEMOGLOBIN 8.7 g/dL (12.0-16.0); LYMPHOCYTES # (AUTO) 1.8 K/uL (2.5-16.5); LYMPHOCYTES % (AUTO) 11.2 % (20.5-51.1); MEAN CORPUSCULAR HEMOGLOBIN 30 pg (27-31); MEAN CORPUSCULAR HGB CONC 32 g/dL (33-37); MEAN CORPUSCULAR VOLUME 91.8 fL (80-94); MONOCYTES # (AUTO) 0.8 K/uL (0.8-1.0); MONOCYTES % (AUTO) 4.7 % (1.7-9.3); NEUTROPHILS # (AUTO) 13.6 K/uL (1.8-7.7); NEUTROPHILS % (AUTO) 83.8 % (42.2-75.2); PLATELET COUNT (AUTO) 196 K/uL (140-450); RED BLOOD CELL COUNT(AUTO) 2.95 MIL/uL (4.20-5.40); RED CELL DISTRIBUTION WIDTH 14.9 % (11.6-13.7); WHITE BLOOD COUNT (AUTO) 16.2 K/uL (4.8-10.8)
[2018-02-24] MEDS: CHLORHEXIDINE GLUCONATE 0.12% 473 ML LIQ MM SCH ×2 (09:24→20:10)
--- NOTE | 2018-02-24 09:24 | NUR ---
PATIENT TOOK AM MEDICATIONS. PATIENT TOLERATED WELL.
[2018-02-24 09:44] LABS: ANION GAP 7.7 (8-16); CARBON DIOXIDE 26.6 mmol/L (21-32); CREATININE 1.5 mg/dL (0.6-1.3); POTASSIUM 4.3 mmol/L (3.5-5.1)
[2018-02-24 09:49] LABS: MAGNESIUM 2.1 mg/dL (1.8-2.4); PHOSPHORUS 1.7 mg/dL (2.5-4.9)
--- NOTE | 2018-02-24 11:09 | NUR ---
PATIENT REFUSED TO BE CHANGED AT THIS TIME. WILL CONTINUE TO MONITOR PATIENT.
[2018-02-24 12:00] VITALS: BP 148/68
--- NOTE | 2018-02-24 13:00 | NUR ---
PATIENT REFUSED SKIN OINTMENTS AND TOPICAL OINTMENTS. EXPLAINED TO PATIENT WHY SHE NEEDS THESE MEDICATIONS. PATIENT STILL REFUSED.
[2018-02-24] MEDS: MUPIROCIN CA NASAL 2% 1GM TUBE NS SCH (13:42)
--- NOTE | 2018-02-24 13:55 | NUR ---
PATIENT RESTING AT THIS TIME. NO DISTRESS NOTED. WILL CONTINUE TO MONITOR
--- NOTE | 2018-02-24 14:06 | NUR ---
PAGED DR. BRYANT REGARDING PATIENT'S LOW HEART RATE OF 47. PATIENT IS AROUSABLE AT THIS TIME.
--- NOTE | 2018-02-24 14:18 | NUR ---
PAGED DR BRYANT REGARDING PATIENT'S LOW HEART RATE. PATIENT IS ASYMPTOMATIC. WILL CONTINUE TO MONITOR
[2018-02-24] MEDS: NACL 0.9% 1,000 ML IV SCH (14:19)
--- NOTE | 2018-02-24 15:10 | NUR ---
NOTIFIED DR. JIMENEZ ABOUT PATIENT'S LOW HEART RATE WHILE SLEEPING. PATIENT IS ASYMPTOMATIC. WILL CONTINUE TO MONITOR PATIENT.
[2018-02-24 16:00] VITALS: BP 139/59
[2018-02-24] MEDS: ATORVASTATIN 20 MG TAB PO SCH (16:15)
[2018-02-24] MEDS: INSULIN LANTUS 100 UNITS/ML 10 ML VIAL SUBQ SCH (16:19)
--- NOTE | 2018-02-24 17:00 | NUR ---
CONTINUED TO MONITOR PT ON VENT WITH ESTTINGS CHARTED BREATH SOUNDS PRESENT BILAT DIMINISHED SXN PT WITH MIN AMT OFF WHITE SECS TRACH SITE SECURE AMBU BAG AT BEDSIDE VENT PLUGGED INTO RED OUTLET
--- NOTE | 2018-02-24 17:20 | NUR ---
PATIENT REFUSED BED BATH. WILL CONTINUE TO MONITOR PATIENT.
--- NOTE | 2018-02-24 19:05 | NUR ---
GAVE REPORT TO NIGHTSHIFT NURSE AT BEDSIDE. PATIENT IN STABLE CONDITION.
--- NOTE | 2018-02-24 19:06 | NUR ---
RECEIVED REPORT FROM DAYSILFT NURSE AT BEDSIDE FOR CONTINUITY OF CARE. PT AAOX4. PT IV IS LFA 20G SALINE LOCK AND RIJ CENTRAL LINE NS AT 75ML/HR. PT IS TRACH TO VENT FI02 40% PT RR 24. PT HAS NORTON IN PLACE. NO SOB NO S/S OF DISTRESS. PT ABLE TO SWALLOW PILLS AND EAT DIET CCHO MECHANICAL SOFT. PT IS MRSA NARES +. BED LOWERED CALL LIGHT WITHIN REACH WILL CONTINUE TO MONITOR.
[2018-02-24 20:00] VITALS: BP 110/42
[2018-02-24] MEDS: LATANOPROST 0.005% OP 2.5 ML BTL OP SCH (21:00)
--- NOTE | 2018-02-24 22:27 | NUR ---
XALANTAN EYE DROPS NO GIVEN BECAUSE MED IS NOT AVAILABLE. MED NOT IN [place].
[2018-02-25] VITALS: BP 115/56
[2018-02-25] MEDS: ALBUTEROL SULFATE/IPRATROPIU 3 ML SOL IH PRN ×4 (00:58→15:15)
[2018-02-25] MEDS: HYDRAGUARD CREAM TP SCH ×2 (01:00→12:14)
[2018-02-25] MEDS: Z-GUARD PASTE TP SCH ×2 (01:00→12:14)
[2018-02-25] MEDS: PIPER/TAZO 2.25GM/D5W PREMIX 50 ML IV SCH ×3 (03:00→13:58)
[2018-02-25] MEDS: NACL 0.9% 1,000 ML IV SCH ×2 (03:15→16:57)
[2018-02-25 04:00] VITALS: BP 112/46
[2018-02-25] MEDS: metroNIDAZOLE 500 MG/NS PREMIX 100 ML IV SCH ×3 (04:19→20:25)
[2018-02-25] MEDS ORDERED: SODIUM PHOS / POTASSIUM PHOS 1 PKT PDR PO SCH (06:30)
[2018-02-25] MEDS: BLOOD GLUCOSE MONITORING 1 DEV DEV FS SCH ×4 (06:55→20:45)
[2018-02-25] MEDS: ALBUTEROL SULFATE/IPRATROPIU 3 ML SOL IH SCH ×3 (07:24→18:52)
--- NOTE | 2018-02-25 07:35 | NUR ---
ENDORSED REPORT TO DAYSHIFT NURSE AT BEDSIDE FOR CONTINUITY OF CARE.
--- NOTE | 2018-02-25 07:36 | NUR ---
RECEIVED REPORT FROM PROJECT/PRODUCTION MANAGER IMAGING NURSE, PT IS SLEEPING IN BED BUT EASILY AWAKEN, PT IS AAOX4, WHEELCHAIR BOUND, PT IS ON A TRACH TO VENT, PT HAS A CENTRAL LINE ON HER RIGHT IJ, X 3 LUMEN, PATENT, INTACT, FLUSHING WELL, PT HAS IV ON HER LEFT FA, # 20, WILL REMOVE IV, IT HAS NORTON CATHETER IN PLACE, 100 ML OF LIGHT LAYLA URINE NOTED, NO S/S OF RESPIRATORY DISTRESS OR DISCOMFORT NOTED, DISCUSSED PLAN OF CARE WITH PT, PT VERBALIZED UNDERSTANDING, SAFETY/FALL PRECAUTIONS ARE IN PLACE, CALL LIGHT IS WITHIN REACH, WILL CONTINUE TO MONITOR.
[2018-02-25 08:00] VITALS: BP 141/63
[2018-02-25] MEDS: MAGNESIUM OXIDE 400 MG TAB PO SCH (08:16)
[2018-02-25] MEDS: LACTOBACILLUS RHAMNOSUS GG 1 EACH CAP PO SCH ×3 (08:16→17:25)
[2018-02-25] MEDS: FLUCONAZOLE 100 MG TAB PO SCH (08:17)
[2018-02-25] MEDS: ASPIRIN 81 MG TAB.CHEW PO SCH (08:17)
[2018-02-25] MEDS: CARVEDILOL 3.125 MG TAB PO SCH (08:17)
[2018-02-25] MEDS: FERROUS SULFATE 325 MG TABEC PO SCH ×2 (08:18→20:38)
[2018-02-25] MEDS: DOCUSATE SODIUM 100 MG GELCAP PO SCH ×2 (08:19→20:38)
[2018-02-25] MEDS: CHLORHEXIDINE GLUCONATE 0.12% 473 ML LIQ MM SCH ×2 (08:19→20:44)
[2018-02-25] MEDS: TRIAMCINOLONE 0.1% CRM 15 GM TUBE TP SCH (08:20)
--- NOTE | 2018-02-25 08:20 | NUR ---
DUE MEDICATION GIVEN, PT TOLERATED WELL. IV ON LEFT FA REMOVED, CATHETER TIP INTACT. PATIENT SUCTION TUBING AND YANKER CHANGED. ALL OF PATIENT'S NEEDS ARE MET AT THIS TIME. CALL LIGHT IS WITHIN REACH.
[2018-02-25] MEDS: MILD SOAP AND WATER TP SCH (08:22)
--- NOTE | 2018-02-25 10:15 | NUR ---
PT RESTING IN BED, HIGH FOWLERS POSITION, WATCHING TV, NO S/S OF RESPIRATORY DISTRESS OR DISCOMFORT NOTED, CALL LIGHT WITHIN REACH.
[2018-02-25 11:13] LABS: CARBON DIOXIDE 23.7 mmol/L (21-32); CREATININE 1.3 mg/dL (0.6-1.3); POTASSIUM 3.7 mmol/L (3.5-5.1)
[2018-02-25 11:20] LABS: PHOSPHORUS 1.9 mg/dL (2.5-4.9)
[2018-02-25 11:32] LABS: BASOPHILS % (AUTO) 0.2 % (0.0-2.0); EOSINOPHILS # (AUTO) 0.2 K/uL (0-0.4); EOSINOPHILS % (AUTO) 1.9 % (0.0-4.0); HEMOGLOBIN 8.3 g/dL (12.0-16.0); LYMPHOCYTES # (AUTO) 1.5 K/uL (2.5-16.5); LYMPHOCYTES % (AUTO) 13.2 % (20.5-51.1); MEAN CORPUSCULAR HEMOGLOBIN 30 pg (27-31); MEAN CORPUSCULAR HGB CONC 33 g/dL (33-37); MEAN CORPUSCULAR VOLUME 92.2 fL (80-94); MONOCYTES # (AUTO) 0.8 K/uL (0.8-1.0); MONOCYTES % (AUTO) 6.7 % (1.7-9.3); PLATELET COUNT (AUTO) 179 K/uL (140-450); RED BLOOD CELL COUNT(AUTO) 2.71 MIL/uL (4.20-5.40); RED CELL DISTRIBUTION WIDTH 15.2 % (11.6-13.7); WHITE BLOOD COUNT (AUTO) 11.6 K/uL (4.8-10.8)
[2018-02-25 12:00] VITALS: BP 152/71
--- NOTE | 2018-02-25 12:05 | NUR ---
PT IS SITTING UP IN BED, EATING LUNCH, NO S/S OF DISCOMFORT NOTED, CALL LIGHT IS WITHIN REACH.
[2018-02-25] MEDS: METOCLOPRAMIDE 10 MG TAB PO SCH ×3 (12:13→23:09)
[2018-02-25] MEDS: CHLORHEXADINE GLUC 2% CLOTH TP SCH (12:14)
[2018-02-25] MEDS: SODIUM PHOS / POTASSIUM PHOS 1 PKT PDR PO SCH ×2 (12:14→17:24)
[2018-02-25] MEDS: MUPIROCIN CA NASAL 2% 1GM TUBE NS SCH (13:21)
--- NOTE | 2018-02-25 14:00 | NUR ---
PT REPOSITIONED FOR COMFORT, ALL NEEDS MET CALL LIGHT WITHIN REACH.
--- NOTE | 2018-02-25 14:47 | NUR ---
02/25/18 RD FOLLOW UP COMPLETED PLEASE REFER TO NUTRITION PROGRESS NOTE UNDER CARE ACTIVITY FOR ESTIMATED NUTRITION NEEDS. RD RECOMMENDATIONS: 1. CONTINUE CURRENT DIET CCHO 45GM, RENAL, NA2GM, MECH SOFT DIET TOLERATED 2. RD TO FOLLOW-UP 3-5 DAYS, MODERATE RISK ADALID MELÉNDEZ MBA, RD
--- NOTE | 2018-02-25 15:05 | NUR ---
PT HAD X RAY DONE AT BEDSIDE. PT REPOSITIONED FOR COMFORT, PT REQUESTING BREATHING TREATMENT. I WENT AHEAD AND NOTIFIED RT (EFRAIN).
--- NOTE | 2018-02-25 15:20 | NUR ---
PT RECEIVED BREATHING TREATMENT, NO S/S OF RESPIRATORY DISTRESS OR DISCOMFORT NOTED AT THIS TIME. CALL LIGHT WITHIN REACH, WILL CONTINUE TO MONITOR.
--- NOTE | 2018-02-25 15:21 | NUR ---
PT TACHYPNEIC STATING SHE IS SOB. PRN BREATHING TX ADMINISTERED. WOB HAS DECREASED. WILL CONTINUE TO MONITOR.
[2018-02-25 16:00] VITALS: BP 125/53
[2018-02-25 16:45] LABS: BASOPHILS % (AUTO) 0.2 % (0.0-2.0); EOSINOPHILS # (AUTO) 0.2 K/uL (0-0.4); EOSINOPHILS % (AUTO) 2.4 % (0.0-4.0); HEMATOCRIT 24.8 % (36-48); HEMOGLOBIN 8.1 g/dL (12.0-16.0); LYMPHOCYTES # (AUTO) 1.3 K/uL (2.5-16.5); LYMPHOCYTES % (AUTO) 13.1 % (20.5-51.1); MEAN CORPUSCULAR HEMOGLOBIN 30 pg (27-31); MEAN CORPUSCULAR HGB CONC 33 g/dL (33-37); MEAN CORPUSCULAR VOLUME 91.6 fL (80-94); MONOCYTES # (AUTO) 0.7 K/uL (0.8-1.0); NEUTROPHILS # (AUTO) 7.8 K/uL (1.8-7.7); NEUTROPHILS % (AUTO) 77.3 % (42.2-75.2); PLATELET COUNT (AUTO) 186 K/uL (140-450); RED BLOOD CELL COUNT(AUTO) 2.71 MIL/uL (4.20-5.40); RED CELL DISTRIBUTION WIDTH 15.2 % (11.6-13.7); WHITE BLOOD COUNT (AUTO) 10.1 K/uL (4.8-10.8)
[2018-02-25 17:07] LABS: ALBUMIN 2.4 g/dL (3.4-5.0); ANION GAP 9.6 (8-16); CARBON DIOXIDE 25.2 mmol/L (21-32); CREATININE 1.2 mg/dL (0.6-1.3); POTASSIUM 3.8 mmol/L (3.5-5.1); TOTAL BILIRUBIN 0.2 mg/dL (0.0-1.0)
[2018-02-25] MEDS ORDERED: SODIUM PHOSPHATE 15 MMOLE in NACL 0.9% 250 ML IV ONE ×2 (17:10→21:00)
[2018-02-25] MEDS: ATORVASTATIN 20 MG TAB PO SCH (17:24)
[2018-02-25] MEDS: INSULIN LANTUS 100 UNITS/ML 10 ML VIAL SUBQ SCH (17:26)
[2018-02-25] MEDS: INSULIN LISPRO SLIDING SCALE 100 UNITS/ML VIAL SUBQ PRN (17:28)
--- NOTE | 2018-02-25 17:30 | NUR ---
PT IS SLEEPING IN BED AT THIS TIME, NO S/S OF DISTRESS NOTED. CALL LIGHT WITHIN REACH.
--- NOTE | 2018-02-25 17:41 | NUR ---
PT REMAINS ON DOCUMENTED VENT SETTINGS. PT IS ASLEEP AT THIS TIME AND NOT IN ANY DISTRESS. VENT ALARMS REMAIN ON AND FUNCTIONING. TRACH REMAINS SECURE WITH A PATENT AIRWAY.
--- NOTE | 2018-02-25 19:15 | NUR ---
ENDORSED PT TO VACUUM FORMING MACHINE OPERATOR NURSE FOR CONTINUITY OF CARE. PT STABLE AT THIS TIME.
--- NOTE | 2018-02-25 19:20 | NUR ---
RECEIVED PT AWAKE, ON HIGH FOWLERS POSITION, VERBALLY RESPONSIVE, AAOX4, ON TRACH TO VENT, VITAL SIGNS STABLE, SB-SR ON TELE, ABLE TO SUCTION SELF USING YANKAUER, BREATHING TX PER RT, IVF INFUSING WELL VIA RT IJ CVP LINE, NORTON CATH ON PLACE WITH STRAW COLORED URINE, WILL REPOSITION Q2H AND OFFLOAD PRESSURE AREAS, PLAN OF CARE DISCUSSED, SAFETY MEASURES IN PLACE, ON CONTACT ISOLATION, CALL LIGHT WITHIN REACH.
[2018-02-25 20:00] VITALS: BP 127/47
[2018-02-25] MEDS: LATANOPROST 0.005% OP 2.5 ML BTL OP SCH (20:38)
--- NOTE | 2018-02-25 21:15 | NUR ---
SODIUM PHOSPHATE IV NOT AVAILABLE, HOUSE [place] MADE AWARE, HE WILL CALL ON-CALL PHARMACY, PT ANXIOUS AT THIS TIME, REQUESTING FOR BREATHING TX, RT SHANTELL MADE AWARE, SAT-98%, NO SOB NOTED, WILL GIVE ATIVAN PO PRN FOR ANXIETY, MONITORED CLOSELY.
[2018-02-25] MEDS: LORazepam 1 MG TAB PO PRN (21:26)
--- NOTE | 2018-02-25 22:30 | NUR ---
PT SLEEPING, EASILY AROUSABLE, PT REFUSED TO BE REPOSITIONED AT THIS TIME, RISK AND BENEFITS EXPLAINED, WILL TRY AGAIN LATER, PT WENT BACK TO SLEEP.
[2018-02-26] VITALS: BP 130/59
[2018-02-26] MEDS: HYDRAGUARD CREAM TP SCH ×2 (01:10→12:31)
[2018-02-26] MEDS: Z-GUARD PASTE TP SCH ×2 (01:10→12:31)
--- NOTE | 2018-02-26 01:12 | NUR ---
EDUCATE PT THE NEED TO BE REPOSITIONED TO PREVENT PRESSURE ULCERS, PT COMPLIANT AT THIS TIME, PERINEAL AND NORTON CATHETER CARE DONE, NO BM NOTED, PULLED UP TO BED, SLIGHTLY REPOSITIONED TO LEFT SIDE PER PT REQUEST, CONTINUE TO MONITOR CLOSELY.
[2018-02-26] MEDS: PIPER/TAZO 2.25GM/D5W PREMIX 50 ML IV SCH ×2 (03:04→09:07)
[2018-02-26 04:00] VITALS: BP 139/61
--- NOTE | 2018-02-26 04:15 | NUR ---
PT SLEEPING, AROUSABLE TO TOUCH, VITAL SIGNS STABLE, NO RESP DISTRESS NOTED, DUE IVPB FLAGYL ADMINISTERED, MONITORED CLOSELY.
[2018-02-26] MEDS: metroNIDAZOLE 500 MG/NS PREMIX 100 ML IV SCH ×3 (04:18→20:21)
[2018-02-26] MEDS: METOCLOPRAMIDE 10 MG TAB PO SCH ×4 (06:04→23:23)
--- NOTE | 2018-02-26 06:05 | NUR ---
BLOOD SUGAR CHECKED WITH 74 RESULT, NO COVERAGE NEEDED, DUE PO REGLAN GIVEN, TOLERATED WELL, NO RESP DISTRESS NOTED, IVF INFUSING WELL, MONITORED CLOSELY.
[2018-02-26 06:46] LABS: BASOPHILS % (AUTO) 0.3 % (0.0-2.0); EOSINOPHILS # (AUTO) 0.3 K/uL (0-0.4); HEMATOCRIT 25.7 % (36-48); HEMOGLOBIN 8.5 g/dL (12.0-16.0); LYMPHOCYTES # (AUTO) 1.5 K/uL (2.5-16.5); LYMPHOCYTES % (AUTO) 15.3 % (20.5-51.1); MEAN CORPUSCULAR HEMOGLOBIN 31 pg (27-31); MEAN CORPUSCULAR HGB CONC 33 g/dL (33-37); MEAN CORPUSCULAR VOLUME 92.7 fL (80-94); MONOCYTES # (AUTO) 0.8 K/uL (0.8-1.0); MONOCYTES % (AUTO) 8.6 % (1.7-9.3); NEUTROPHILS % (AUTO) 72.8 % (42.2-75.2); PLATELET COUNT (AUTO) 169 K/uL (140-450); RED BLOOD CELL COUNT(AUTO) 2.77 MIL/uL (4.20-5.40); RED CELL DISTRIBUTION WIDTH 14.8 % (11.6-13.7); WHITE BLOOD COUNT (AUTO) 9.6 K/uL (4.8-10.8)
[2018-02-26] MEDS: BLOOD GLUCOSE MONITORING 1 DEV DEV FS SCH ×4 (06:47→20:35)
[2018-02-26] MEDS: ALBUTEROL SULFATE/IPRATROPIU 3 ML SOL IH SCH ×3 (06:54→19:28)
--- NOTE | 2018-02-26 07:04 | NUR ---
RECIVED PT ON VENT WITH SETTINGS CHARTED BREATH SOUNDS PRESENT BILAT DIMINISHED SXN PT WITH MIN AMT OFF WHITE SECS TRACH SITE SECURE ANBBU BAG AT BEDSIDE VENT PLUGGED INTO RED UOT LET WILL CONTINUE TO MONITOR PT ON VENT
[2018-02-26 07:05] LABS: ALBUMIN 2.5 g/dL (3.4-5.0); ANION GAP 9.7 (8-16); CARBON DIOXIDE 25.9 mmol/L (21-32); PHOSPHORUS 3.6 mg/dL (2.5-4.9); POTASSIUM 3.6 mmol/L (3.5-5.1); TOTAL BILIRUBIN 0.3 mg/dL (0.0-1.0)
--- NOTE | 2018-02-26 07:12 | NUR ---
PT SLEEPING, NO SIGNS OF DISTRESS, BEDSIDE REPORT GIVEN TO ANANT PADILLA FOR CONTINUITY OF CARE.
--- NOTE | 2018-02-26 07:15 | NUR ---
RECEIVED REPORT FROM WORKFORCE STAFFING ADVISOR NURSE, PT IS SLEEPING IN BED BUT EASILY AWAKEN, PT IS AAOX4, WHEELCHAIR BOUND, PT IS ON A TRACH TO VENT, PT HAS A CENTRAL LINE ON HER RIGHT IJ, X 3 LUMEN, PATENT, INTACT, FLUSHING WELL, PT HAS NORTON CATHETER IN PLACE, LIGHT LAYLA URINE NOTED, NO S/S OF RESPIRATORY DISTRESS OR DISCOMFORT NOTED, DISCUSSED PLAN OF CARE WITH PT, PT VERBALIZED UNDERSTANDING, SAFETY/FALL PRECAUTIONS ARE IN PLACE, CALL LIGHT IS WITHIN REACH, WILL CONTINUE TO MONITOR.
[2018-02-26 08:00] VITALS: BP 134/52
[2018-02-26] MEDS: CHLORHEXIDINE GLUCONATE 0.12% 473 ML LIQ MM SCH ×2 (09:00→20:30)
[2018-02-26] MEDS: SODIUM PHOS / POTASSIUM PHOS 1 PKT PDR PO SCH (09:04)
[2018-02-26] MEDS: ASPIRIN 81 MG TAB.CHEW PO SCH (09:05)
[2018-02-26] MEDS: DOCUSATE SODIUM 100 MG GELCAP PO SCH ×2 (09:06→20:21)
[2018-02-26] MEDS: FERROUS SULFATE 325 MG TABEC PO SCH ×2 (09:06→20:21)
[2018-02-26] MEDS: MAGNESIUM OXIDE 400 MG TAB PO SCH (09:06)
[2018-02-26] MEDS: CARVEDILOL 3.125 MG TAB PO SCH (09:06)
--- NOTE | 2018-02-26 09:06 | NUR ---
DUE MEDICATION GIVEN, PT TOLERATED WELL. PT WAS REPOSITIONED FOR COMFORT. PT SUCTIONED. ALL NEEDS ARE MET AT THIS TIME, CALL LIGHT WITHIN REACH.
[2018-02-26] MEDS: FLUCONAZOLE 100 MG TAB PO SCH (09:07)
[2018-02-26] MEDS: LACTOBACILLUS RHAMNOSUS GG 1 EACH CAP PO SCH ×3 (09:07→17:18)
[2018-02-26] MEDS: TRIAMCINOLONE 0.1% CRM 15 GM TUBE TP SCH (09:11)
[2018-02-26] MEDS: MILD SOAP AND WATER TP SCH (09:12)
[2018-02-26] MEDS ORDERED: FUROSEMIDE 20 MG/2 ML VIAL IVP SCH (09:30)
[2018-02-26] MEDS: ALBUTEROL SULFATE/IPRATROPIU 3 ML SOL IH PRN ×2 (10:40→15:53)
--- NOTE | 2018-02-26 11:30 | NUR ---
PT RESTING IN BED, HIGH FOWLERS POSITION, WATCHING TV, NO S/S OF RESPIRATORY DISTRESS OR DISCOMFORT NOTED, CALL LIGHT WITHIN REACH.
[2018-02-26 12:00] VITALS: BP 133/68
[2018-02-26] MEDS: MUPIROCIN CA NASAL 2% 1GM TUBE NS SCH (12:30)
[2018-02-26] MEDS: NACL 0.9% 1,000 ML IV SCH (12:30)
[2018-02-26] MEDS: CHLORHEXADINE GLUC 2% CLOTH TP SCH (12:31)
--- NOTE | 2018-02-26 13:35 | NUR ---
PT RESTING IN BED, PT'S VISITORS ARE AT BEDSIDE.
[2018-02-26] MEDS: PIPER/TAZO 3.375GM/D5W PREMIX 50 ML IV SCH ×2 (14:27→20:35)
[2018-02-26] MEDS ORDERED: PIPER/TAZO 2.25GM/D5W PREMIX 50 ML IV SCH (15:00)
--- NOTE | 2018-02-26 15:30 | NUR ---
PT IS RESTING IN BED, WATCHING TV, CALL LIGHT WITHIN REACH.
[2018-02-26 16:00] VITALS: BP 144/49
[2018-02-26] MEDS: INSULIN LANTUS 100 UNITS/ML 10 ML VIAL SUBQ SCH (17:00)
[2018-02-26] MEDS: ATORVASTATIN 20 MG TAB PO SCH (17:18)
--- NOTE | 2018-02-26 17:20 | NUR ---
PT RESTING IN BED, HIGH FOWLERS POSITION, WATCHING TV, DUE MEDICATIONS GIVEN, PT TOLERATED WELL, CALL LIGHT WITHIN REACH.
--- NOTE | 2018-02-26 17:26 | NUR ---
CONTINUED TO MONITOR PT ON VENT WITH SETTINGS CHARTED BREATH SOUNDS PRESENT BILAT DIM SXN PT WITH MIN AMT THIN SECS TRACH SITE SECURE AMBU BAG AT BEDSIDE ENT PLUGGED INTO RED OUTLET
--- NOTE | 2018-02-26 19:04 | NUR ---
ENDORSED PT TO STENCIL SPRAYER NURSE FOR CONTINUITY OF CARE. PT STABLE AT THIS TIME.
--- NOTE | 2018-02-26 19:10 | NUR ---
RECEIVED PT AWAKE, ON HIGH FOWLERS POSITION, VERBALLY RESPONSIVE, AAOX4, ON TRACH TO VENT, VITAL SIGNS STABLE, SB-SR ON TELE, ABLE TO SUCTION SELF USING YANKAUER, BREATHING TX PER RT, IVF INFUSING WELL AT TKO RATE VIA RT IJ CVP LINE, NORTON CATH IN PLACE WITH STRAW COLORED URINE, WILL REPOSITION Q2H AND OFFLOAD PRESSURE AREAS, PLAN OF CARE DISCUSSED, SAFETY MEASURES IN PLACE, ON CONTACT ISOLATION, CALL LIGHT WITHIN REACH.
--- NOTE | 2018-02-26 19:29 | NUR ---
RECEIVED PATIENT ON CURRENT VENT SETTINGS: AC/VC 500 RATE 20 PEEP 5 FIO2 35%. PATIENT IS TRACH'D WITH A SHILEY 8 XLT THAT IS SECURE WITH TRACH TIES. STOMA IS PROTECTED WITH GAUZE DRESSING THAT IS CLEAN. STOMA APPEARS HEALTHY WITH NO IRRITATION AND INTACT. PATIENT IS AWAKE, ALERT AND TALKING. AIRWAY IS PATENT. TREATMENT GIVEN INLINE THAT WAS TOLERATED WELL. ALARM SETTINGS VERIFIED. AMBU BAG AT BEDSIDE. VENT BRAKES ARE ON AND VENT PLUGGED INTO RED OUTLET.
[2018-02-26 20:00] VITALS: BP 147/66
[2018-02-26] MEDS: LATANOPROST 0.005% OP 2.5 ML BTL OP SCH (20:24)
[2018-02-26] MEDS: LORazepam 1 MG TAB PO PRN (21:34)
--- NOTE | 2018-02-26 21:38 | NUR ---
PT ANXIOUS KEEP ON REQUESTING FOR BREATHING TX, NO RESP DISTRESS NOTED, SAT-99-100%, RT MADE AWARE, SUCTION SECRETION X3 PER REQUEST, SCANTY WHITISH SECRETION NOTED, REFUSED TO BE REPOSITIONED AT THIS TIME, RISK AND BENEFITS EXPLAINED, WILL TRY AGAIN LATER, MEDICATED WITH ATIVAN PO PRN, MONITORED CLOSELY.
--- NOTE | 2018-02-26 23:02 | NUR ---
VENT CHECK AND ASSESS PATIENT. PATIENT IS ASLEEP BUT APPEARS COMFORTABLE WITH NO DISTRESS. NO CHANGES TO VENT SETTINGS. WILL CONTINUE TO MONITOR.
[2018-02-27] VITALS: BP 123/53
--- NOTE | 2018-02-27 00:52 | NUR ---
PT REFUSED TO BE REPOSITIONED AT THIS TIME, RISK AND BENEFITS EXPLAINED, REFUSED Z-GUARD AND HYDRAGUARD, WILL TRY AGAIN LATER, MONITORED CLOSELY.
[2018-02-27] MEDS: Z-GUARD PASTE TP SCH ×2 (00:57→13:50)
[2018-02-27] MEDS: HYDRAGUARD CREAM TP SCH ×2 (00:57→13:50)
[2018-02-27] MEDS: PIPER/TAZO 3.375GM/D5W PREMIX 50 ML IV SCH ×4 (02:49→20:32)
--- NOTE | 2018-02-27 03:08 | NUR ---
VENT CHECK AND PATIENT ASSESSMENT. PATIENT SLEEPING. B/S: DIMINISHED BILATERALLY. NO CHANGES TO VENT SETTINGS. WILL CONTINUE TO MONITIR.
[2018-02-27 04:00] VITALS: BP 127/51
[2018-02-27] MEDS: metroNIDAZOLE 500 MG/NS PREMIX 100 ML IV SCH ×3 (04:14→21:14)
--- NOTE | 2018-02-27 04:51 | NUR ---
PT AROUSABLE, VERBALLY RESPONSIVE, SPONGE BATH DONE, Z-GUARD AND HYDRAGUARD APPLIED, LINEN AND GOWN CHANGED, REPOSITIONED SLIGHTLY TO RT SIDE, MONITORED CLOSELY.
[2018-02-27] MEDS: METOCLOPRAMIDE 10 MG TAB PO SCH ×3 (05:02→18:34)
[2018-02-27] MEDS: ALBUTEROL SULFATE/IPRATROPIU 3 ML SOL IH PRN ×2 (05:10→23:44)
--- NOTE | 2018-02-27 05:11 | NUR ---
VENT CHECK AND ASSESS PATIENT. PT REQUESTED PRN TX GIVEN INLINE AND TOLERATED WELL. CHANGED HME AND TRACH DRESSING/GAUZE. DRESSING HAD VERY LITTLE CLEAR DRAINAGE, AND STOMA APPEARS HEALTHY AND INTACT. PATIENT AWAKE AND ALERT.
--- NOTE | 2018-02-27 05:35 | NUR ---
BLOOD SUGAR CHECKED WITH 91 RESULT, NO COVERAGE NEEDED, PT SUCTIONED X3 PER REQUEST, SCANTY SECRETION NOTED, NO RESP DISTRESS AT THIS TIME, MONITORED CLOSELY.
[2018-02-27] MEDS: BLOOD GLUCOSE MONITORING 1 DEV DEV FS SCH ×4 (06:50→20:30)
--- NOTE | 2018-02-27 07:18 | NUR ---
PT SLEEPING, NO DISTRESS NOTED, REPORT GIVEN TO RN EDDA FOR CONTINUITY OF CARE.
--- NOTE | 2018-02-27 07:19 | NUR ---
REPORT RECEIVED FROM INDUSTRIAL ROOF PLUMBER NURSE MOHSEN PT SLEEPING QUIETLY, AROUSES EASILY TO VOICE, RESP BY TRACH TO VENT, EVEN UNLABORED,SKIN WARM DRY COLOR WNL, APPEARS IN NAD, NO C/O PAIN OR DISCOMFORT, PLAN OF CARE REVIEWED, ALL SAFETY MEASURES IN PLACE, WILL CONTINUE TO MONITOR.
[2018-02-27] MEDS: ALBUTEROL SULFATE/IPRATROPIU 3 ML SOL IH SCH ×3 (07:34→19:07)
--- NOTE | 2018-02-27 07:43 | NUR ---
RECEIVED TRACH PT WITH A SHILEY 8 XLT TRACH ON VENT. SETTINGS AC 20, VT 500, PEEP 5 AND FIO2 35%. PT IS ASLEEP AT THIS TIME AND NOT SOB/RESPIRATORY DISTRESS. VENT IS PLUGGED INTO A RED OUTLET WITH ALARMS ON AND FUNCTIONING. TRACH IS SECURE WITH A PATENT AIRWAY. WILL CONTINUE TO MONITOR.
[2018-02-27 08:00] VITALS: BP 121/48
[2018-02-27 08:32] LABS: BASOPHILS % (AUTO) 0.4 % (0.0-2.0); EOSINOPHILS # (AUTO) 0.3 K/uL (0-0.4); EOSINOPHILS % (AUTO) 2.9 % (0.0-4.0); HEMOGLOBIN 8.2 g/dL (12.0-16.0); LYMPHOCYTES # (AUTO) 1.3 K/uL (2.5-16.5); MEAN CORPUSCULAR HEMOGLOBIN 31 pg (27-31); MEAN CORPUSCULAR HGB CONC 33 g/dL (33-37); MEAN CORPUSCULAR VOLUME 92.7 fL (80-94); MONOCYTES # (AUTO) 0.7 K/uL (0.8-1.0); MONOCYTES % (AUTO) 7.8 % (1.7-9.3); NEUTROPHILS # (AUTO) 7.2 K/uL (1.8-7.7); NEUTROPHILS % (AUTO) 74.9 % (42.2-75.2); PLATELET COUNT (AUTO) 169 K/uL (140-450); RED CELL DISTRIBUTION WIDTH 15.1 % (11.6-13.7); WHITE BLOOD COUNT (AUTO) 9.6 K/uL (4.8-10.8)
[2018-02-27] MEDS: MAGNESIUM OXIDE 400 MG TAB PO SCH (08:47)
[2018-02-27] MEDS: LACTOBACILLUS RHAMNOSUS GG 1 EACH CAP PO SCH ×3 (08:47→16:20)
[2018-02-27] MEDS: ASPIRIN 81 MG TAB.CHEW PO SCH (08:48)
[2018-02-27] MEDS: FERROUS SULFATE 325 MG TABEC PO SCH ×2 (08:48→20:32)
[2018-02-27] MEDS: FLUCONAZOLE 100 MG TAB PO SCH (08:48)
[2018-02-27] MEDS: CARVEDILOL 3.125 MG TAB PO SCH (08:49)
[2018-02-27] MEDS: DOCUSATE SODIUM 100 MG GELCAP PO SCH ×2 (08:49→20:32)
[2018-02-27] MEDS: CHLORHEXIDINE GLUCONATE 0.12% 473 ML LIQ MM SCH ×2 (08:49→20:33)
[2018-02-27] MEDS: MILD SOAP AND WATER TP SCH (08:59)
[2018-02-27] MEDS: TRIAMCINOLONE 0.1% CRM 15 GM TUBE TP SCH (09:00)
[2018-02-27 09:16] LABS: ALBUMIN 2.5 g/dL (3.4-5.0); ANION GAP 11.4 (8-16); CARBON DIOXIDE 24.3 mmol/L (21-32); MAGNESIUM 1.9 mg/dL (1.8-2.4); PHOSPHORUS 3.1 mg/dL (2.5-4.9); POTASSIUM 3.7 mmol/L (3.5-5.1); TOTAL BILIRUBIN 0.3 mg/dL (0.0-1.0)
--- NOTE | 2018-02-27 09:20 | NUR ---
PT REFUSES TO BE TURNED AND CLEANED AT THIS TIME
[2018-02-27 12:00] VITALS: BP 124/57
--- NOTE | 2018-02-27 12:25 | NUR ---
3 PERSON ASSIST TO MOVE PATIENT UP IN BED, PT ABLE TO PUSH OFF IN BED WITH HER LEGS
--- NOTE | 2018-02-27 13:44 | NUR ---
Maintenance Painter Note: Per Nikita from [facility] they dont have any beds available in their subacute unit. Per Alisha from [facility] they dont have any beds available in their subacute unit. Per Inna from [facility] they don't have any beds in their subacute unit at this time. Per Mike from [facility] , they dont have any beds available in their subacute unit. Pending response from [facility] Per patient's sister Kim Arredondo , she is in agreement with patient returning to [facility] if none of the subacute facilities contacted are able to accept Addendum: 02/27/18 at 1443 by Sierra WORTHINGTON Per Katelin from [facility] , they do not have a subacute unit in their facility. Addendum: 02/27/18 at 1601 by Sierra WORTHINGTON I called and spoke with patient's sister Kim Arredondo , I informed her none of the subacute facilities I had contacted had a bed available and was still waiting to hear from [facility] . She verbalized understanding. She told me to check if [place], [facility], or [place] had any subacute facilities, I looked online and there weren't any listed in those cities, I informed Kim of this.
[2018-02-27] MEDS: CHLORHEXADINE GLUC 2% CLOTH TP SCH (13:50)
[2018-02-27] MEDS: MUPIROCIN CA NASAL 2% 1GM TUBE NS SCH (13:50)
--- NOTE | 2018-02-27 13:50 | NUR ---
PT REFUSES BACTROBAN IN NARES
--- NOTE | 2018-02-27 13:58 | NUR ---
FIO2 TITRATED TO 30% WILL CONTINUE TO MONITOR.
[2018-02-27 16:00] VITALS: BP 112/57
[2018-02-27] MEDS: ATORVASTATIN 20 MG TAB PO SCH (16:20)
--- NOTE | 2018-02-27 16:58 | NUR ---
PT REFUSES TO TURN AND BE CLEANED, PT RE POSITIONS HERSELF WITH 2 PERSON ASSIST, ALL SAFETY MEASURES IN PLACE, WILL CONTINUE TO MONTIOR
[2018-02-27] MEDS: INSULIN LANTUS 100 UNITS/ML 10 ML VIAL SUBQ SCH (17:00)
--- NOTE | 2018-02-27 17:32 | NUR ---
PT REMAINS ON DOCUMENTED VENT SETTINGS. TRACH REMAINS SECURE WITH A PATENT AIRWAY. VENT ALARMS REMAIN ON AND FUNCTIONING.
[2018-02-27] MEDS: LORazepam 1 MG TAB PO PRN (18:34)
--- NOTE | 2018-02-27 18:35 | NUR ---
PT APPEARS FRUSTRATED, APPEARS ANXIOUS, ATIVAN GIVEN PER PRN ORDER
--- NOTE | 2018-02-27 19:19 | NUR ---
REPORT GIVEN TO FLAGSETTER NURSE, PT IN STABLE CONDITION
--- NOTE | 2018-02-27 19:19 | NUR ---
RECEIVED REPORT FROM DAY SHIFT NURSE EDDA-RN AT BEDSIDE. PT AOX4-DIVEHI SPEAKING. TRACH TO VENT WITH FLOW RATE 40, FIO2 30 AND O2SAT 95. CVP RIGHT IJ TRIPPLE LUMEN @ TKO. 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 ON BEDREST, SKIN IS INTACT WITH REDNESS ON COCCYX. DISCUSSED PLAN OF CARE AND PT VERBALIZED UNDERSTANDING. NO S/S OF RESPIRATORY DISTRESS OR DISCOMFORT NOTED AT THIS TIME. BED IN LOWEST POSITION, BED BREAKS ON, BOTH SIDE RAILS UP, BED ALARM ON AND FALL PRECAUTIONS IN PLACE. BED SIDE TABLE AND CALL LIGHT ARE WITHIN REACH. WILL CONTINUE TO MONITOR.
--- NOTE | 2018-02-27 19:20 | NUR ---
RECEIVED PT ON TRACH SHILEY 8 XLT ON VENT SETTINGS: AC/VC 20, 500, 30%, +5. AIRWAY IS PATENT AND SECURED. ALARMS ARE FUNCTIONING AND AUDIBLE. VENT IS PLUGGED INTO RED OUTLET AND AMBUBAG IS AT BEDSIDE. SUCTIONED SMALL SEMI-THICK WHITE SECRETIONS. NO RESPIRTORY DISTRESS WAS NOTED. WILL CONTINUE TO MONITOR.
[2018-02-27 20:00] VITALS: BP 112/65
--- NOTE | 2018-02-27 20:00 | NUR ---
BLOOD GLUCOSE 167-INSULIN COVERAGE NEEDED. VITAL SIGNS TAKEN AND TOLERATED WELL. NO S/S OF RESPIRATORY DISTRESS OR DISCOMFORT NOTED AT THIS TIME. WILL CONTINUE TO MONITOR.
--- NOTE | 2018-02-27 20:30 | NUR ---
SPOKE WITH DR. MARMOLEJO ABOUT LAST COAGULATION BLOOD TEST BEING ON 02/21 AND MD SAID SHE WOULD TEST BLOOD COAGULATION IN THE MORNING AND WAS OK TO GIVE SCHEDULED DOSAGE TONIGHT.
[2018-02-27] MEDS: LATANOPROST 0.005% OP 2.5 ML BTL OP SCH (20:32)
--- NOTE | 2018-02-27 20:32 | NUR ---
SCHEDULED MEDICATION GIVEN AND TOLERATED WELL. PT REFUSED INSULIN COVERAGE, PERIDEX AND HEPARIN INJECTION STATING "NO INSULIN BECAUSE IT'S NOT THAT HIGH FOR 2 UNITS OF INSULIN AND A POKE, NO PERIDEX BECAUSE I DISLIKE THE MINT TASTE AND NO HEPARIN INJECTION BECAUSE I WAS BLEEDING A LOT ON THE LAST DOSAGE." EDUCATED ON THE IMPORTANCE OF INSULIN AND PT CONTINUES TO REFUSE. NO S/S OF RESPIRATORY DISTRESS OR DISCOMFORT NOTED AT THIS TIME. WILL CONTINUE TO MONITOR.
--- NOTE | 2018-02-27 22:00 | NUR ---
PT RESTING IN BED WATCHING TV. NO S/S OF RESPIRATORY DISTRESS OR DISCOMFORT NOTED AT THIS TIME. WILL CONTINUE TO MONITOR.
[2018-02-28] VITALS: BP 112/74
--- NOTE | 2018-02-28 | NUR ---
VITAL SIGNS TAKEN AND TOLERATED WELL. NO S/S OF RESPIRATORY DISTRESS OR DISCOMFORT NOTED AT THIS TIME. WILL CONTINUE TO MONITOR.
[2018-02-28] MEDS: METOCLOPRAMIDE 10 MG TAB PO SCH ×4 (00:15→17:31)
--- NOTE | 2018-02-28 00:15 | NUR ---
SCHEDULED MEDICATION REGLAN GIVEN AND TOLERATED WELL. NO S/S OF RESPIRATORY DISTRESS OR DISCOMFORT NOTED AT THIS TIME. WILL CONTINUE TO MONITOR.
[2018-02-28] MEDS: HYDRAGUARD CREAM TP SCH ×2 (00:18→13:56)
[2018-02-28] MEDS: Z-GUARD PASTE TP SCH ×2 (00:19→13:56)
--- NOTE | 2018-02-28 02:00 | NUR ---
PT CONTINUES TO SLEEP. NO S/S OF RESPIRATORY DISTRESS OR DISCOMFORT NOTED AT THIS TIME. WILL CONTINUE TO MONITOR.
[2018-02-28] MEDS: PIPER/TAZO 3.375GM/D5W PREMIX 50 ML IV SCH ×4 (02:40→20:27)
--- NOTE | 2018-02-28 02:40 | NUR ---
SCHEDULED MEDICATION ZOSYN GIVEN AND TOLERATED WELL. NO S/S OF RESPIRATORY DISTRESS OR DISCOMFORT NOTED AT THIS TIME. WILL CONTINUE TO MONITOR.
[2018-02-28 04:00] VITALS: BP 112/63
--- NOTE | 2018-02-28 04:00 | NUR ---
VITAL SIGNS TAKEN AND TOLERATED WELL. NO S/S OF RESPIRATORY DISTRESS OR DISCOMFORT NOTED AT THIS TIME. WILL CONTINUE TO MONITOR.
[2018-02-28] MEDS: metroNIDAZOLE 500 MG/NS PREMIX 100 ML IV SCH ×3 (04:29→21:52)
--- NOTE | 2018-02-28 04:29 | NUR ---
SCHEDULED MEDICATION FLAGYL GIVEN AND TOLERATED WELL. NO S/S OF RESPIRATORY DISTRESS OR DISCOMFORT NOTED AT THIS TIME. WILL CONTINUE TO MONITOR.
[2018-02-28] MEDS: ALBUTEROL SULFATE/IPRATROPIU 3 ML SOL IH PRN ×3 (05:33→23:58)
--- NOTE | 2018-02-28 05:45 | NUR ---
BLOOD GLUCOSE 134- NO INSULIN COVERAGE NEEDED.
[2018-02-28] MEDS: BLOOD GLUCOSE MONITORING 1 DEV DEV FS SCH ×4 (05:48→20:19)
--- NOTE | 2018-02-28 05:48 | NUR ---
SCHEDULED MEDICATION REGLAN GIVEN AND TOLERATED WELL. NO S/S OF RESPIRATORY DISTRESS OR DISCOMFORT NOTED AT THIS TIME. WILL CONTINUE TO MONITOR.
[2018-02-28] MEDS: ALBUTEROL SULFATE/IPRATROPIU 3 ML SOL IH SCH ×3 (06:40→19:04)
--- NOTE | 2018-02-28 06:40 | NUR ---
rec'd pt on carescape vent settings ac20 vt 500 peep 5 fio2 30% alarms on and audible, vent is plugging into red outlet ambu bag at side of vent i\l tx given with duoneb 3ml with no adverse reaction post tx b\s are diminished bilaterally, sxn pt a small amt of clear thick secretion, pt is trach with shiley 8 xlt and skin integrity is intact
[2018-02-28 06:41] LABS: BASOPHILS % (AUTO) 0.3 % (0.0-2.0); EOSINOPHILS # (AUTO) 0.2 K/uL (0-0.4); EOSINOPHILS % (AUTO) 2.4 % (0.0-4.0); HEMATOCRIT 25.4 % (36-48); HEMOGLOBIN 8.4 g/dL (12.0-16.0); LYMPHOCYTES # (AUTO) 1.3 K/uL (2.5-16.5); LYMPHOCYTES % (AUTO) 12.9 % (20.5-51.1); MEAN CORPUSCULAR HEMOGLOBIN 31 pg (27-31); MEAN CORPUSCULAR HGB CONC 33 g/dL (33-37); MEAN CORPUSCULAR VOLUME 92.4 fL (80-94); MONOCYTES # (AUTO) 0.7 K/uL (0.8-1.0); MONOCYTES % (AUTO) 7.1 % (1.7-9.3); NEUTROPHILS % (AUTO) 77.3 % (42.2-75.2); PLATELET COUNT (AUTO) 168 K/uL (140-450); RED BLOOD CELL COUNT(AUTO) 2.75 MIL/uL (4.20-5.40); RED CELL DISTRIBUTION WIDTH 15.5 % (11.6-13.7); WHITE BLOOD COUNT (AUTO) 10.4 K/uL (4.8-10.8)
[2018-02-28 06:56] LABS: ANION GAP 9.2 (8-16); CARBON DIOXIDE 25.7 mmol/L (21-32); CREATININE 1.1 mg/dL (0.6-1.3); POTASSIUM 3.9 mmol/L (3.5-5.1)
[2018-02-28 07:01] LABS: MAGNESIUM 1.9 mg/dL (1.8-2.4); PHOSPHORUS 2.5 mg/dL (2.5-4.9)
--- NOTE | 2018-02-28 07:24 | NUR ---
ENDORSED PT CARE TO DAY SHIFT NURSE GABINO FOR CONTINUITY OF CARE.
--- NOTE | 2018-02-28 07:27 | NUR ---
RECEIVED REPORT FROM MANUAL QA TESTER RN. PT RESTING IN BED. A/OX4. VERBAL. SKIN DRY AND WARM TO TOUCH. TRACH TO VENT AC 20 TV 500 FIO2 30% PEEP 5. RIGHT IJ TRIPLE LUMEN INTACT. NO ACTIVE BLEEDING AT THE SITE. NS RUNNING AT 10 ML/HR. RHONCHI PRESENTS ON LUNGS AUSCULTATION. LARGE ABDOMEN FIRM, ROUND AND NON-TENDER. ACTIVE BOWEL SOUND. SKIN DISCOLORATION NOTED ON ABDOMINAL AREA, BOT UPPER EXTREMITIES. REDNESS AND BRUISES ON BUE. EDEMATOUS BOTH UPPER AND LOWER EXTREMITIES. NORTON CATHETER IN PLACE DRAINING DARK YELLOW URINE VIA GRAVITY. HOB ELEVATED. BED IN LOW POSITION LOCKED. CALL LIGHT WITHIN REACH. WILL CONTINUE TO MONITOR.
[2018-02-28 08:00] VITALS: BP 139/63
--- NOTE | 2018-02-28 08:45 | NUR ---
MORNING CARE PROVIDED.
[2018-02-28] MEDS: LACTOBACILLUS RHAMNOSUS GG 1 EACH CAP PO SCH ×3 (08:59→17:24)
[2018-02-28] MEDS: CHLORHEXIDINE GLUCONATE 0.12% 473 ML LIQ MM SCH ×2 (09:00→20:28)
[2018-02-28] MEDS: ASPIRIN 81 MG TAB.CHEW PO SCH (09:01)
[2018-02-28] MEDS: CARVEDILOL 3.125 MG TAB PO SCH (09:01)
[2018-02-28] MEDS: DOCUSATE SODIUM 100 MG GELCAP PO SCH ×2 (09:01→20:27)
[2018-02-28] MEDS: FLUCONAZOLE 100 MG TAB PO SCH (09:02)
[2018-02-28] MEDS: FERROUS SULFATE 325 MG TABEC PO SCH ×2 (09:02→20:27)
[2018-02-28] MEDS: MAGNESIUM OXIDE 400 MG TAB PO SCH (09:03)
[2018-02-28] MEDS: TRIAMCINOLONE 0.1% CRM 15 GM TUBE TP SCH (09:04)
--- NOTE | 2018-02-28 09:07 | NUR ---
PT REFUSED CHLORHEXIDINE GLUCONATE 0.12% FOR MOUT RINSE. CHG VAP ORAL CARE PROVIDED INSTEAD.
[2018-02-28] MEDS: MILD SOAP AND WATER TP SCH (09:21)
--- NOTE | 2018-02-28 09:45 | NUR ---
PT REQUESTED FOR BREATHING TREATMENT. CALLED RT.
--- NOTE | 2018-02-28 09:48 | NUR ---
VENT CHECK, NO SXN NEEDED AIRWAY PATENT AND PT SLEEPING
--- NOTE | 2018-02-28 11:01 | NUR ---
vent check,no sxn needed airway is patent
[2018-02-28 12:00] VITALS: BP 144/65
[2018-02-28] MEDS: MUPIROCIN CA NASAL 2% 1GM TUBE NS SCH ×2 (13:00→13:28)
--- NOTE | 2018-02-28 13:15 | NUR ---
PT REQUEST FOR BREATHING TREATMENT. RT CALLED.
--- NOTE | 2018-02-28 13:32 | NUR ---
PT REFUSED BACTROBAN TO BE ADMINISTERED. MADE AWARE ABOUT RISK AND BENEFITS OF REFUSING AND ADMINISTERING MEDICINE. PT INSIST REFUSING MEDICINE.
--- NOTE | 2018-02-28 13:40 | NUR ---
VENT CHECK, I\L TX GIVEN WITH DUONEB 3ML WITH NO ADVERSE REACTION POST TX, B\S ARE DIMINISHED SNX PT SMALL AMT OF CLEAR SECRETIONS
--- NOTE | 2018-02-28 14:54 | NUR ---
SITTING IN BED COMFORTABLY. WATCHING TV.
--- NOTE | 2018-02-28 15:06 | NUR ---
PT REQUESTED FOR FOOD TO EAT. DIETARY CALLED. Addendum: 02/28/18 at 1508 by Leidy Louis RN LEFT MESSAGE.
--- NOTE | 2018-02-28 15:17 | NUR ---
VENT CHECK, NO SXN NEEDED AIRWAY IS PATENT TRACH CARE DONE
--- NOTE | 2018-02-28 15:55 | NUR ---
RESTING IN BED COMFORTABLY. NO CHANGE IN LOC. WILL CONTINUE TO MONITOR.
[2018-02-28 16:00] VITALS: BP 132/63
--- NOTE | 2018-02-28 16:08 | NUR ---
CALLED FAUST[facility] AND LEFT VOICE MESSAGE TO PROVIDE TRAY FOR PT. PT REFUSED TO EAT VANILLA PUDDING.
--- NOTE | 2018-02-28 16:38 | NUR ---
PT REFUSED TO BE CHANGE AND REPOSITIONING. MADE AWARE ABOUT RISK AND BENEFITS OF REPOSITIONING AND CHANGING. STILL REFUSED. PT SAID LEAVE ME ALONE.
--- NOTE | 2018-02-28 17:10 | NUR ---
VENT CHECK, NO SXN NEEDED AIRWAY IS PATENT
[2018-02-28] MEDS: ATORVASTATIN 20 MG TAB PO SCH (17:24)
[2018-02-28] MEDS: INSULIN LANTUS 100 UNITS/ML 10 ML VIAL SUBQ SCH (17:27)
--- NOTE | 2018-02-28 18:20 | NUR ---
NO CHANGES IN LOC. WILL CONTINUE TO MONITOR.
--- NOTE | 2018-02-28 19:17 | NUR ---
ENDORSED TO DRAW IN HAND RN FOR CONTINUITY OF CARE. PT ON STABLE CONDITION.
--- NOTE | 2018-02-28 19:18 | NUR ---
RECEIVED REPORT FROM DAY SHIFT NURSE JAMES-RN AT BEDSIDE. PT AOX4-MACEDONIAN SPEAKING. TRACH TO VENT WITH FLOW RATE 40, FIO2 30 AND O2SAT 95. CVP RIGHT IJ TRIPPLE LUMEN @ TKO. 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 ON BEDREST, SKIN IS INTACT WITH REDNESS ON COCCYX. DISCUSSED PLAN OF CARE AND PT VERBALIZED UNDERSTANDING. NO S/S OF RESPIRATORY DISTRESS OR DISCOMFORT NOTED AT THIS TIME. BED IN LOWEST POSITION, BED BREAKS ON, BOTH SIDE RAILS UP, BED ALARM ON AND FALL PRECAUTIONS IN PLACE. BED SIDE TABLE AND CALL LIGHT ARE WITHIN REACH. WILL CONTINUE TO MONITOR.
[2018-02-28 20:00] VITALS: BP 110/71
--- NOTE | 2018-02-28 20:00 | NUR ---
BLOOD GLUCOSE 172. INSULIN COVERAGE NEEDED. VITAL SIGNS TAKEN AND TOLERATED WELL. NO S/S OF RESPIRATORY DISTRESS OR DISCOMFORT NOTED AT THIS TIME.
[2018-02-28] MEDS: LATANOPROST 0.005% OP 2.5 ML BTL OP SCH (20:27)
--- NOTE | 2018-02-28 20:27 | NUR ---
SCHEDULED MEDICATION GIVEN AND TOLERATED WELL. PT REFUSED PERIDEX STATING SHE'D RATHER "USE THE TOOTHBRUSH/SUCTIONING". PT ALSO REFUSED HEPARIN STATING HER ABDOMEN "HURTS SO MUCH FROM THOSE INJECTIONS." PT ALSO REFUSED INSULIN COVERAGE STATING SHE DOESN'T WANT AN INJECTION FOR 2 UNITS OF INSULIN AND THAT THE REASON HER BLOOD GLUCOSE IS HIGH BECAUSE SHE JUST FINISHED DINNER. NO S/S OF RESPIRATORY DISTRESS OR DISCOMFORT NOTED AT THIS TIME. WILL CONTINUE TO MONITOR.
--- NOTE | 2018-02-28 20:30 | NUR ---
PT HAS NOT HAD A BM SINCE 02/25/2018- PT STATED SHE PREFERS ENEMA. WILL ADMINISTER. SPOKE WITH KHAI ROSEN AND RUSSELL FOR HELP WELL RT VALENTINA FOR HELP SINCE PT HAS SEVERE DIFFICULTY BREATHING WHEN HEAD OF BED IS NOT ELEVATED. CHARGE NURSE LUCHO POLO.
--- NOTE | 2018-02-28 21:52 | NUR ---
SCHEDULED MEDICATION FLAGYL GIVEN AND TOLERATED WELL. NO S/S OF RESPIRATORY DISTRESS OR DISCOMFORT NOTED AT THIS TIME. WILL CONTINUE TO MONITOR.
[2018-02-28] MEDS: SODIUM PHOSPHATE 118 ML ENEM RC PRN (23:38)
--- NOTE | 2018-02-28 23:38 | NUR ---
FLEET ENEMA GIVEN WITH DOG LICENSER RUSSELL ROSEN AND RT VALENTINA PRESENT. PT STATED SHE NEEDED SEVERAL MINUTES TO SEE IF IT WOULD TAKE EFFECT. WILL CONTINUE TO MONITOR.
[2018-03-01] VITALS (7 sets, daily range): BP systolic 108–154; BP diastolic 54–81
--- NOTE | 2018-03-01 | NUR ---
VITAL SIGNS TAKEN AND TOLERATED WELL. DECREASED BP NOTED. SCHEDULED MEDICATIONS GIVEN AND TOLERATED WELL. NO S/S OF RESPIRATORY DISTRESS OR DISCOMFORT NOTED AT THIS TIME. WILL CONTINUE TO MONITOR.
[2018-03-01] MEDS: HYDRAGUARD CREAM TP SCH ×2 (00:31→13:23)
[2018-03-01] MEDS: Z-GUARD PASTE TP SCH ×2 (00:31→13:24)
--- NOTE | 2018-03-01 02:00 | NUR ---
PT SLEEPING IN BED. NO S/S OF RESPIRATORY DISTRESS OR DISCOMFORT NOTED AT THIS TIME. WILL CONTINUE TO MONITOR.
[2018-03-01] MEDS: PIPER/TAZO 3.375GM/D5W PREMIX 50 ML IV SCH ×3 (02:49→20:39)
--- NOTE | 2018-03-01 02:49 | NUR ---
SCHEDULED MEDICATION ZOSYN GIVEN AND TOLERATED WELL. PT CONTINUES TO SLEEP. NO S/S OF RESPIRATORY DISTRESS OR DISCOMFORT NOTED AT THIS TIME. WILL CONTINUE TO MONITOR.
--- NOTE | 2018-03-01 04:00 | NUR ---
VITAL SIGNS TAKEN AND TOLERATED WELL. NO S/S OF RESPIRATORY DISTRESS OR DISCOMFORT NOTED AT THIS TIME. WILL CONTINUE TO MONITOR.
[2018-03-01] MEDS: metroNIDAZOLE 500 MG/NS PREMIX 100 ML IV SCH ×3 (05:14→20:39)
[2018-03-01] MEDS: METOCLOPRAMIDE 10 MG TAB PO SCH ×5 (05:14→23:02)
--- NOTE | 2018-03-01 05:14 | NUR ---
BLOOD GLUCOSE 107- NO INSULIN COVERAGE NEEDED. SCHEDULED MEDICATION FLAGYL AND REGLAN GIVEN AND TOLERATED WELL. NO S/S OF RESPIRATORY DISTRESS OR DISCOMFORT NOTED AT THIS TIME. WILL CONTINUE TO MONITOR.
[2018-03-01] MEDS: ALBUTEROL SULFATE/IPRATROPIU 3 ML SOL IH PRN ×3 (05:32→16:22)
[2018-03-01] MEDS: REFRESH EYE DROPS OP PRN ×2 (05:42→09:15)
[2018-03-01] MEDS: BLOOD GLUCOSE MONITORING 1 DEV DEV FS SCH ×4 (06:22→20:46)
[2018-03-01] MEDS: ALBUTEROL SULFATE/IPRATROPIU 3 ML SOL IH SCH ×3 (06:28→19:12)
--- NOTE | 2018-03-01 06:28 | NUR ---
REC'D PT ON [employer]E VENT SETTINGS AC20 VT 500 PEEP 5 FIO2 30% ALARMS ON AND AUDIBLE AND AMBU BAG IS AT SIDE OF VENT AND VENT IS PLUGGED INTO RED OUTLET, I\L TX GIVEN WITH DUONEB 3ML WITH NO ADVERSE REACTION POST TX, B\S RHONCHI BILATERALLY SXN PT WITH NO RETURN OF SECRETIONS, PT IS TRACH WITH SHILEY 8 XLT AND SKIN INTEGRITY IS INTACT PT IS AWAKE AND ALERT
--- NOTE | 2018-03-01 07:15 | NUR ---
ENDORSED PT CARE TO DAY SHIFT NURSE JARROD-RN FOR CONTINUITY OF CARE.
--- NOTE | 2018-03-01 07:16 | NUR ---
RECEIVED BEDSIDE REPORT FROM PROGRAM DIRECTOR CABLE TELEVISION NURSE. PATIENT IS AWAKE, ALERT AND ORIENTEDX4. NO SIGNS OF DISTRESS W TRACH TO VENT, SETTINGS ARE FIO2 30 VT 500 RR20 FLOW 40 PEEP5 PMAX 60. PATIENT IS BEDBOUND. NORTON IN PLACE. INCONTINENT.FALL RISK PROTOCOL IN PLACE. TELE MONITOR IN PLACE. RIJ TRIPLE LUMEN IN PLACE. CLEAN, DRY AND INTACT. CONTACT PRECAUTIONS IN PLACE. BED IN LOW POSITION. CALL LIGHT WITHIN REACH. WILL CONTINUE TO MONITOR THE PATIENT
[2018-03-01] MEDS: CHLORHEXIDINE GLUCONATE 0.12% 473 ML LIQ MM SCH ×2 (09:00→20:46)
--- NOTE | 2018-03-01 09:06 | NUR ---
VENT CHECK, I\L TX GIVEN WITH DOUNEB 3ML WITH NO ADVERSE REACTION POST TX B\S ARE RHONCHI BILATERALLY NO SXN REQUIRED AND AIRWAY IS PATENT
[2018-03-01] MEDS: FLUCONAZOLE 100 MG TAB PO SCH (09:09)
[2018-03-01] MEDS: DOCUSATE SODIUM 100 MG GELCAP PO SCH ×2 (09:09→20:39)
[2018-03-01] MEDS: LACTOBACILLUS RHAMNOSUS GG 1 EACH CAP PO SCH ×3 (09:10→17:26)
[2018-03-01] MEDS: FERROUS SULFATE 325 MG TABEC PO SCH ×2 (09:10→20:39)
[2018-03-01] MEDS: ASPIRIN 81 MG TAB.CHEW PO SCH (09:11)
[2018-03-01] MEDS: CARVEDILOL 3.125 MG TAB PO SCH (09:11)
[2018-03-01] MEDS: MAGNESIUM OXIDE 400 MG TAB PO SCH (09:11)
[2018-03-01] MEDS: HYDROcodone/APAP 7.5/325 MG 1 TAB PO PRN (09:12)
[2018-03-01] MEDS: TRIAMCINOLONE 0.1% CRM 15 GM TUBE TP SCH (09:26)
[2018-03-01] MEDS: MILD SOAP AND WATER TP SCH (09:26)
--- NOTE | 2018-03-01 09:28 | NUR ---
ADMINISTERED MEDS. PATIENT TOLERATED WELL. CHANGED ALL IV TUBINGS AND LABELED. NO SIGNS OF DISTRESS ON TRACH TO VENT. PATIENT WANTS BED UP. TOLD HER WE HAVE TO KEEP IT LOW TO PREVENT FALLS OR HAZARDS. SHE SAID NO SHE WANTS IT UP. EDUCATED HER ON THE RISKS BUT SHE STILL REFUSED. BED ALARM IS ON. WILL CONTINUE TO MONITOR THE PATIENT.
--- NOTE | 2018-03-01 10:51 | NUR ---
PATIENT SITTING IN BED WATCHING TV. NO SIGNS OF DISTRESS. CALL LIGHT WITHIN REACH. WILL CONTINUE TO MONITOR THE PATIENT
--- NOTE | 2018-03-01 11:10 | NUR ---
vent check, no sxn required at this time, airway is patent
--- NOTE | 2018-03-01 12:11 | NUR ---
ADMINISTERED MEDS. PATIENT TOLERATED WELL. PATIENT EATING LUNCH. WILL CONTINUE TO MONITOR. CALL LIGHT WITHIN REACH
--- NOTE | 2018-03-01 13:00 | NUR ---
PATIENT IS SLEEPING. NO SIGNS OF DISTRESS ON TRACH TO VENT. BED IN LOW POSITION. CALL LIGHT WITHIN REACH. WILL CONTINUE TO MONITOR THE PATIENT.
[2018-03-01] MEDS ORDERED: LORATADINE 10 MG TAB PO SCH (13:17)
--- NOTE | 2018-03-01 13:33 | NUR ---
VENT CHECK, I\L TX GIVEN WITH DUONEB 3ML WITH NO ADVERSE REACTION POST TX B\S ARE RHONCHI NO SXN NEEDED
--- NOTE | 2018-03-01 13:38 | NUR ---
ADMINISTERED MED. PATIENT TOLERATED WELL. RT AT BEDSIDE GIVING BREATHING TX
[2018-03-01] MEDS ORDERED: SODIUM CHLORIDE FLUSH 10 ML SYR IVF PRN (14:40)
--- NOTE | 2018-03-01 14:47 | NUR ---
PATIENT SITTING IN BED CONTENT TO GET SOME SLEEP. WILL CONTINUE TO MONITOR THE PATIENT
[2018-03-01] MEDS ORDERED: REFRESH EYE DROPS OP PRN (15:15)
--- NOTE | 2018-03-01 15:48 | NUR ---
vent check, no sxn needed airway patent and trach care done
--- NOTE | 2018-03-01 16:00 | NUR ---
CLEANSED THE PATIENT. PATIENT DID NOT TOLERATE TURN WELL. PATIENT GOT RED. RT AT BEDSIDE GIVING PRN BREATHING TX. PATIENT DOING BETTER W TX. WILL CONTINUE TO MONITOR THE PATIENT
[2018-03-01] MEDS: INSULIN LANTUS 100 UNITS/ML 10 ML VIAL SUBQ SCH (17:00)
[2018-03-01] MEDS: ATORVASTATIN 20 MG TAB PO SCH (17:25)
--- NOTE | 2018-03-01 17:36 | NUR ---
ADMINISTERED MEDS. PATIENT TOLERATED WELL. DID NOT GIVE LANTUS D/T BS BEING 107. PATIENT ALSO REFUSED. WILL CONTINUE TO MONITOR THE PATIENT
--- NOTE | 2018-03-01 19:05 | NUR ---
GAVE BEDSIDE REPORT TO STAMPING PRESS OPERATOR NURSE. PATIENT ENDORSED IN STABLE CONDITION
--- NOTE | 2018-03-01 19:10 | NUR ---
RECEIVED PT AWAKE, ON HIGH FOWLERS POSITION, VERBALLY RESPONSIVE, AAOX4, EATING A SANDWICH INDEPENDENTLY, TOLERATING WELL, ON TRACH TO VENT, VITAL SIGNS STABLE, SB ON TELE, ABLE TO SUCTION SELF USING YANKAUER, BREATHING TX PER RT, IVF INFUSING WELL VIA RT IJ CVP LINE, NORTON CATH IN PLACE DRAINING WELL, PLAN OF CARE DISCUSSED, SAFETY MEASURES IN PLACE, ON CONTACT ISOLATION, CALL LIGHT WITHIN REACH.
[2018-03-01] MEDS: LATANOPROST 0.005% OP 2.5 ML BTL OP SCH (20:42)
--- NOTE | 2018-03-01 20:50 | NUR ---
BLOOD SUGAR CHECKED WITH 99 RESULT, DUE MEDS ADMINISTERED, REFUSED HEPARIN SUB-Q, RISK AND BENEFITS EXPLAINED, STILL REFUSING, ALL NEEDS ATTENDED.
--- NOTE | 2018-03-01 22:15 | NUR ---
PT SLEEPING, ATTEMPT TO REPOSITION PT BUT REFUSED AT THIS TIME, WILL TRY AGAIN LATER.
[2018-03-02] VITALS: BP 128/67
[2018-03-02] MEDS: HYDRAGUARD CREAM TP SCH ×2 (01:06→13:04)
[2018-03-02] MEDS: Z-GUARD PASTE TP SCH ×2 (01:06→13:04)
[2018-03-02] MEDS: HYDROcodone/APAP 7.5/325 MG 1 TAB PO PRN (01:47)
[2018-03-02] MEDS: ALBUTEROL SULFATE/IPRATROPIU 3 ML SOL IH PRN ×5 (03:38→16:39)
[2018-03-02 04:00] VITALS: BP 125/58
[2018-03-02] MEDS: PIPER/TAZO 3.375GM/D5W PREMIX 50 ML IV SCH ×3 (04:44→20:05)
[2018-03-02] MEDS: metroNIDAZOLE 500 MG/NS PREMIX 100 ML IV SCH (05:32)
[2018-03-02] MEDS: METOCLOPRAMIDE 10 MG TAB PO SCH ×3 (05:33→18:00)
--- NOTE | 2018-03-02 06:00 | NUR ---
ATTEMPT TO GIVE DULCOLAX SUPPOSITORY BUT PT REFUSED, STATED "LATER NOT RIGHT NOW", RISK AND BENEFITS EXPLAINED REPEATEDLY BUT PT INSISTING "LATER, LATER" WILL ENDORSE TO AM SHIFT.
[2018-03-02] MEDS: ALBUTEROL SULFATE/IPRATROPIU 3 ML SOL IH SCH ×3 (06:58→19:16)
--- NOTE | 2018-03-02 06:58 | NUR ---
RECEIVED ON A [employer] CARESCAPE R860 VENTILATOR PLUGGED INTO RED OUTLET TOLERATING WELL TO A SHILEY XLT #8 AIRWAY SECURED WITH A KARIME TRACH TIE CUFF PRESSURE CHECKED NOTED AMBU BAG NOTED AT BEDSIDE ALBERTO RADICAL-7 CONTINUOS PULSE OXIMETER AT [facility] ON AND FUNCTIONING WELL LOW ALARM SET AT 92% LOC AWAKE AND ALERT HFW POSITION BREATH SOUNDS DIFFUSED EXP RHONCHI BILATERAL WIHT GOOD CHEST RISE DEEP TRACHEAL SUCTION FOR SCANT THIN YELLOW SECRETIONS AIRWAY PATENT
[2018-03-02] MEDS: BLOOD GLUCOSE MONITORING 1 DEV DEV FS SCH ×4 (07:04→20:38)
--- NOTE | 2018-03-02 07:30 | NUR ---
PT SLEEPING, EASILY AROUSABLE, NO SIGNS OF DISTRESS, BEDSIDE REPORT GIVEN TO RN WOODY FOR CONTINUITY OF CARE.
--- NOTE | 2018-03-02 07:30 | NUR ---
RECEIVED PT AAOX4. NO SOB NOTED. NO C/O PAIN AT THIS TIME. PT ON CHRONIC TRACH TO MECHANICAL VENT. WITH RT IJ TRIPLE LUMEN CENTRAL LINE, PATENT, SITE CLEAN AND DRY. CHEST, DIMINISHED AIR ENTRY TO THE BASES, RHONCHI HEARD BILATERALLY. ABDOMEN LARGE BUT SOFT, BOWEL SOUNDS PRESENT. WITH NORTON CATHETER DRAINING MODERATE AMOUNTS OF SLIGHTLY CLEAR DARK LAYLA URINE. WILL REPOSITION PT Q 2HRS. SCD'S IN PLACE. PT ABLE TO SUCTION SELF WITH THE USE OF YANKAUER. INSTRUCTED PT TO CALL FOR ASSISTANCE, CALL LIGHT WITHIN REACH, PT VERBALIZED UNDERSTANDING.
[2018-03-02 08:00] VITALS: BP 119/61
[2018-03-02] MEDS ORDERED: FLUCONAZOLE 100 MG TAB PO SCH (08:00)
[2018-03-02] MEDS ORDERED: LORATADINE 10 MG TAB PO SCH (09:00)
[2018-03-02] MEDS: CARVEDILOL 3.125 MG TAB PO SCH (09:00)
[2018-03-02] MEDS ORDERED: NACL 0.9% 1,000 ML IV SCH (09:20)
[2018-03-02] MEDS: LACTOBACILLUS RHAMNOSUS GG 1 EACH CAP PO SCH ×3 (09:29→17:00)
[2018-03-02] MEDS: FERROUS SULFATE 325 MG TABEC PO SCH ×2 (09:30→20:41)
[2018-03-02] MEDS: CHLORHEXIDINE GLUCONATE 0.12% 473 ML LIQ MM SCH ×2 (09:30→20:41)
[2018-03-02] MEDS: MAGNESIUM OXIDE 400 MG TAB PO SCH (09:30)
[2018-03-02] MEDS: ASPIRIN 81 MG TAB.CHEW PO SCH (09:30)
[2018-03-02] MEDS: DOCUSATE SODIUM 100 MG GELCAP PO SCH ×2 (09:30→20:41)
[2018-03-02] MEDS: REFRESH EYE DROPS OP PRN (09:42)
[2018-03-02] MEDS: TRIAMCINOLONE 0.1% CRM 15 GM TUBE TP SCH (09:43)
[2018-03-02] MEDS: MILD SOAP AND WATER TP SCH (09:44)
--- NOTE | 2018-03-02 09:53 | NUR ---
SLIGHTLY IRRITABLE BREATH SOUNDS CLEAR BILATERAL WITH GOOD CHEST RISE AND AERATION THROUGHOUT PULMONARY BANKS AIRWAY PATENT
[2018-03-02] MEDS: FLUCONAZOLE 100 MG TAB PO SCH (10:06)
--- NOTE | 2018-03-02 11:00 | NUR ---
PT REFUSED TO BE TURNED Q2 HRS, RISKS AND CONSEQUENCES EXPLAINED TO PT, VERBALIZED UNDERSTANDING.
[2018-03-02 12:00] VITALS: BP 141/72
[2018-03-02] MEDS ORDERED: BISACODYL 10 MG SUPP RC SCH (13:00)
--- NOTE | 2018-03-02 13:06 | NUR ---
PT C/O CONSTIPATION. 2 DULCOLAX SUPP GIVEN PER RECTUM ORDERED. WILL MONITOR FOR BOWEL MOVEMENT.
--- NOTE | 2018-03-02 13:10 | NUR ---
RN AND CAN AT BEDSIDE FOR INSERTION OF [employer]EMA [employer] BOSS TO ATTEMPT PATIENT ASSESSMENT AND HHN THERAPY AT A LATER TIME
--- NOTE | 2018-03-02 13:24 | NUR ---
INFORMATION CLERK CALLED TO BEDSIDE POST INSERTION OF ENEMA PATIENT PRESENTING WITH INCREASED SOB AND DECREASED SATURATION TO 82% Addendum: 03/02/18 at 1335 by Junior Fulton RT SCHEDULED AND PRN THERAPY GIVEN AT THIS TIME
--- NOTE | 2018-03-02 13:41 | NUR ---
REMAINS IN DISTRESS DESPITE HHN THERAPY X2 WOODY/RN TO GIVE ATIVAN
[2018-03-02] MEDS: LORazepam 1 MG TAB PO PRN (13:46)
--- NOTE | 2018-03-02 13:50 | NUR ---
ANXIOUS BREATH SOUNDS DECREASED APEX TO MID WITH DIMINISHED BASES HHN SUB X2 UD GIVEN INLINE DEEP TRACHEAL SUCTION FOR NO RETURN
[2018-03-02] MEDS ORDERED: LORazepam 2 MG/ML VIAL IVP PRN (13:55)
[2018-03-02] MEDS ORDERED: LORazepam 2 MG/ML VIAL IVP SCH (14:00)
--- NOTE | 2018-03-02 14:11 | NUR ---
PATIENT VERY ANXIOUS, RT AT BEDSIDE, ATIVAN GIVEN ORDERED. WILL CONTINUE TO MONITOR.
--- NOTE | 2018-03-02 14:14 | NUR ---
PATIENT PRESENTING WITH PERSISTENT ANXIOUSNESS NO CHANGE IN BREATH SOUNDS FROM PREVIOUS CALLED DR CINDY BRYANT [id number] OUT OF AREA DR KHADAR YOO COVERING REVIEWED STATUS WITH MD ONE TIME NOW ORDER FOR IV ATIVAN .5mg WOODY/RN MADE AWARE OF ORDER
--- NOTE | 2018-03-02 14:22 | NUR ---
AFTER NO PROPER RESPONSE ON PRESSURE CONTROL DUE TO HIGH PEAK PRESSURE REMOVED PATIENT FROM VENTILATOR AMBU BAG TO TRACH AT 15 LPM WITH BAG DEPRESSION ON INSPIRATION NOTICE OF RESISTANCE DR CINDY BRYANT AND OTHER RESIDENTS NOW AT BEDSIDE
[2018-03-02] MEDS ORDERED: methylPREDNISolone SS 40 MG/ML VIAL IVP SCH (14:40)
[2018-03-02] MEDS ORDERED: methylPREDNISolone SS 40 MG in WATER STERILE 1 ML IV ONE (14:40)
[2018-03-02 15:00] VITALS: BP 151/93
[2018-03-02] MEDS ORDERED: MORPHINE SULFATE 2 MG/ML SYR IVP SCH (15:00)
--- NOTE | 2018-03-02 15:11 | NUR ---
03/02/18 RD FOLLOW UP COMPLETED PLEASE REFER TO NUTRITION PROGRESS NOTE UNDER CARE ACTIVITY FOR ESTIMATED NUTRITIONAL NEEDS. 1. CONTINUE MECHANICAL SODFT, 45 G CCHO, RENAL STANDARD: NA2 G DIET TOLERATED. 2. RECOMMEND NEPRO BID. 3. RD TO FOLLOW-UP 2-3 DAYS, HIGH RISK. YUDY CABRALES RD
--- NOTE | 2018-03-02 16:50 | NUR ---
Clip Baker Note: Per Lelia from [facility] they dont have any beds available in their subacute unit. Per Alisha from [facility] they dont have any beds available in their subacute unit. Per Tiffani from [facility] they don't have any beds in their subacute unit at this time. Per Julio C from [facility] , they dont have any beds available in their subacute unit. Per Marcela from [facility] , she would like to know if patient is on isolation or has a G-Tube, SW will follow up with Program Manufacturing Leader tomorrow regarding this. Per patient's sister Kim Arredondo , she is in agreement with patient returning to [facility] if none of the subacute facilities contacted are able to accept.
[2018-03-02] MEDS: INSULIN LANTUS 100 UNITS/ML 10 ML VIAL SUBQ SCH (17:00)
[2018-03-02] MEDS: ATORVASTATIN 20 MG TAB PO SCH (17:00)
[2018-03-02] MEDS ORDERED: ALBUTEROL SULFATE/IPRATROPIU 3 ML SOL IH SCH ×2 (17:00→18:00)
--- NOTE | 2018-03-02 17:29 | NUR ---
AWAKE AND ALERT GOOD CHEST RISE DEEP TRACHEAL SUCTION FOR LARGE THIN FROTHY BLOOD TIGE SECRETIONS AIRWAY PATENT DR CINDY BRYANT AT BEDSIDE Addendum: 03/02/18 at 1756 by Junior Fulton RT CALLED FELLOW RT Sam FISH FOR ASSISTANCE
[2018-03-02] MEDS: INSULIN LISPRO SLIDING SCALE 100 UNITS/ML VIAL SUBQ PRN (17:43)
[2018-03-02] MEDS: DEXT 5% /NACL 0.9% 1,000 ML IV SCH (17:55)
--- NOTE | 2018-03-02 17:59 | NUR ---
CENTRAL LINE DRESSING CHANGE DUE TODAY, PT REFUSED, STATED LATER TONIGHT. PT VERBALIZED UNDERSTANDING.
--- NOTE | 2018-03-02 18:10 | NUR ---
PT INSTRUCTED ON NPO FOR NOW UNTIL FURTHER ORDERS (FOR RISK OF ASPIRATION). IVF CHANGED TO D5 NS ORDERED. PT VERBALIZED UNDERSTANDING.
--- NOTE | 2018-03-02 19:00 | NUR ---
NO BOWEL MOVEMENT NOTED YET.
--- NOTE | 2018-03-02 19:15 | NUR ---
PT RESTING. NO SOB NOTED. NO SIGNS OF PAIN. WILL ENDORSE TO NEXT SHIFT NURSE FOR CONTINUITY OF CARE.
--- NOTE | 2018-03-02 19:29 | NUR ---
RECEIVED TRACHED PT ON A JetPayLYE 8 XLT ON VENT SETTINGS: PRVC 20, 500, IT .60, 40%, +8. AIRWAY IS PATENT AND SECURED. ALARMS ARE AUDIBLE AND FUNCTIONING. VENT IS PLUGGED INTO RED OUTLET AND AMBUBAG IS AT BEDSIDE. PT TOLERATED DUONEB TX. NO RESPIRTORY DISTRESS IS NOTED. WILL CONTINUE TO MONITOR.
--- NOTE | 2018-03-02 19:30 | NUR ---
RECEIVED REPORT FROM DAY SHIFT RN FOR CONTINUITY OF CARE. PT IS APHASIC, ON TRACH TO VENT. PT IS ABLE TO MAKE NEEDS KNOWN, ABLE TO FOLLOW COMMANDS. PT IS OBESE, AND BEDBOUND, SKIN IS INTACT, ONLY SOME ERYTHEMA UNDER BREASTS. PT HAS A RIGHT TRIPLE LUMEN CENTRAL LINE, ASYMPTOMATIC. DISCUSSED PLAN OF CARE WITH PT, PT NODDED UNDERSTANDING. PT STABLE, NO SIGNS OF DISTRESS NOTED AT THIS TIME. BED IN LOWEST POSITION, BED ALARM ON. CALL LIGHT WITHIN REACH, WILL CONTINUE TO MONITOR.
[2018-03-02] MEDS: LORazepam 2 MG/ML VIAL IVP PRN (19:53)
--- NOTE | 2018-03-02 19:55 | NUR ---
PT BLOOD PRESSURE WAS ELEVATED AND PT HAVING SOME ANXIETY. SPOKE TO DR MARMOLEJO AND SHE SAID TO GIVE ATIVAN THEN CHECK BP AGAIN AFTER 30-60MIN. ADMINISTERED ATIVAN, PT TOLERATED WELL.
[2018-03-02 20:00] VITALS: BP 212/111
--- NOTE | 2018-03-02 20:35 | NUR ---
PT BP NOW WITHIN NORMAL LIMITS AT 130/77.
[2018-03-02] MEDS: LATANOPROST 0.005% OP 2.5 ML BTL OP SCH (20:55)
--- NOTE | 2018-03-02 20:55 | NUR ---
MRSA TREATMENT COMPLETED SO HELD CHLORHEXIDINE GLUCONATE, ALSO HELD PO MEDS BECAUSE PT IS NPO, AND HELD COVERAGE HUMALOG BECAUSE PT IS NPO, BLOOD SUGAR IS 209. ADMINISTERED OTHER MEDICATIONS, PT TOLERATED WELL.
--- NOTE | 2018-03-02 22:25 | NUR ---
PT STABLE, NO SIGNS OF DISTRESS NOTED AT THIS TIME. BED IN LOWEST POSITION, BED ALARM ON. CALL LIGHT WITHIN REACH, WILL CONTINUE TO MONITOR.
[2018-03-03] VITALS: BP 129/73
--- NOTE | 2018-03-03 | NUR ---
VITAL SIGNS WITHIN NORMAL LIMITS. PT STABLE, NO SIGNS OF DISTRESS NOTED AT THIS TIME. BED IN LOWEST POSITION, BED ALARM ON. CALL LIGHT WITHIN REACH, WILL CONTINUE TO MONITOR.
[2018-03-03] MEDS: HYDRAGUARD CREAM TP SCH ×2 (01:16→13:00)
[2018-03-03] MEDS: Z-GUARD PASTE TP SCH ×2 (01:16→13:00)
--- NOTE | 2018-03-03 02:10 | NUR ---
PT RESTING, STABLE, NO SIGNS OF DISTRESS NOTED AT THIS TIME. NO ALARMS GOING OFF ON VENT. BED IN LOWEST POSITION, BED ALARM ON. CALL LIGHT WITHIN REACH, WILL CONTINUE TO MONITOR.
--- NOTE | 2018-03-03 03:15 | NUR ---
PT REQUESTED BREATHING TREATMENT, CALLED RT ANDRES AND HE WILL COME GIVE BREATHING TREATMENT.
[2018-03-03] MEDS: ALBUTEROL SULFATE/IPRATROPIU 3 ML SOL IH PRN ×3 (03:24→17:34)
[2018-03-03 04:00] VITALS: BP 156/77
[2018-03-03] MEDS: LORazepam 2 MG/ML VIAL IVP PRN ×2 (04:05→10:06)
--- NOTE | 2018-03-03 04:05 | NUR ---
PT C/O ANXIETY AND REQUESTED ATIVAN. ADMINISTERED ATIVAN ORDERED, PT TOLERATED WELL.
[2018-03-03] MEDS: PIPER/TAZO 3.375GM/D5W PREMIX 50 ML IV SCH ×3 (04:10→20:27)
--- NOTE | 2018-03-03 04:13 | NUR ---
VITAL SIGNS WITHIN NORMAL LIMITS. PT STABLE, NO SIGNS OF DISTRESS NOTED AT THIS TIME. PT HAD BOWEL MOVEMENT, TOLD PT WE WOULD CLEAN HER AND PT REFUSED. PT IS WHISPERING AND NODDING TO COMMUNICATE. SHE SAID NOT RIGHT NOW BECAUSE SHE IS STILL HAVING BM, EXPLAINED TO PT THAT IF STOOL IS LEFT THERE FOR A LONG TIME SKIN WILL START TO BREAK DOWN, PT NODDED AND SAID SHE WOULD CALL SOON SHE IS DONE. BED IN LOWEST POSITION, BED ALARM ON. CALL LIGHT WITHIN REACH, WILL CONTINUE TO MONITOR.
--- NOTE | 2018-03-03 05:00 | NUR ---
PT HAD LARGE BM, PT WAS CLEANED.
[2018-03-03] MEDS: METOCLOPRAMIDE 10 MG TAB PO SCH ×4 (05:24→17:16)
[2018-03-03] MEDS: DEXT 5% /NACL 0.9% 1,000 ML IV SCH ×3 (06:41→22:54)
[2018-03-03] MEDS: BLOOD GLUCOSE MONITORING 1 DEV DEV FS SCH ×4 (06:42→20:39)
--- NOTE | 2018-03-03 06:43 | NUR ---
PT BLOOD SUGAR IS 186, WILL NOT ADMINISTER INSULIN BECAUSE PT IS NPO.
[2018-03-03 06:46] LABS: BASOPHILS % (AUTO) 0.1 % (0.0-2.0); HEMATOCRIT 26.2 % (36-48); HEMOGLOBIN 8.5 g/dL (12.0-16.0); LYMPHOCYTES # (AUTO) 0.7 K/uL (2.5-16.5); MEAN CORPUSCULAR HEMOGLOBIN 30 pg (27-31); MEAN CORPUSCULAR HGB CONC 32 g/dL (33-37); MEAN CORPUSCULAR VOLUME 93.1 fL (80-94); MONOCYTES # (AUTO) 0.8 K/uL (0.8-1.0); MONOCYTES % (AUTO) 5.1 % (1.7-9.3); NEUTROPHILS # (AUTO) 14.7 K/uL (1.8-7.7); NEUTROPHILS % (AUTO) 90.8 % (42.2-75.2); PLATELET COUNT (AUTO) 199 K/uL (140-450); RED BLOOD CELL COUNT(AUTO) 2.81 MIL/uL (4.20-5.40); RED CELL DISTRIBUTION WIDTH 15.7 % (11.6-13.7); WHITE BLOOD COUNT (AUTO) 16.2 K/uL (4.8-10.8)
[2018-03-03] MEDS: ALBUTEROL SULFATE/IPRATROPIU 3 ML SOL IH SCH ×3 (06:55→19:29)
--- NOTE | 2018-03-03 07:18 | NUR ---
RECIVED PT ON VENT WITH SETTINGS CHARTED BREATH SOUNDS PRESENT BILAT DIMINISHED PT RESTING AT THIS TIME TRACH SITE SECURE VENT PLUGGED INTO RED OYTLET AMBU BAG AT BEDSIDE
[2018-03-03 07:23] LABS: POTASSIUM 4.7 mmol/L (3.5-5.1)
[2018-03-03 07:24] LABS: CARBON DIOXIDE 23.7 mmol/L (21-32); CREATININE 1.3 mg/dL (0.6-1.3)
--- NOTE | 2018-03-03 07:30 | NUR ---
ENDORSED PT TO DAY SHIFT RN FOR CONTINUITY OF CARE. PT IN STABLE CONDITION.
--- NOTE | 2018-03-03 07:30 | NUR ---
RECEIVED PT AAOX4. NO SOB NOTED. NO C/O PAIN AT THIS TIME. PT ON CHRONIC TRACH TO MECHANICAL VENT. WITH RT IJ TRIPLE LUMEN CENTRAL LINE, PATENT, SITE CLEAN AND DRY. CHEST, DIMINISHED AIR ENTRY TO THE BASES, RHONCHI HEARD BILATERALLY. ABDOMEN LARGE BUT SOFT, BOWEL SOUNDS PRESENT. WITH NORTON CATHETER DRAINING MODERATE AMOUNTS OF SLIGHTLY DARK LAYLA URINE. WILL REPOSITION PT Q 2HRS. PT REFUSED SCD'S AT THIS TIME. PT ABLE TO SUCTION SELF WITH THE USE OF YANKAUER. INSTRUCTED PT TO CALL FOR ASSISTANCE, CALL LIGHT WITHIN REACH, PT VERBALIZED UNDERSTANDING.
[2018-03-03 07:40] LABS: MAGNESIUM 1.9 mg/dL (1.8-2.4); PHOSPHORUS 2.5 mg/dL (2.5-4.9)
[2018-03-03 08:00] VITALS: BP 143/111
[2018-03-03] MEDS: LACTOBACILLUS RHAMNOSUS GG 1 EACH CAP PO SCH ×3 (08:00→17:14)
[2018-03-03] MEDS: DOCUSATE SODIUM 100 MG GELCAP PO SCH ×2 (09:00→20:29)
[2018-03-03] MEDS ORDERED: methylPREDNISolone SS 40 MG/ML VIAL IVP SCH (09:00)
[2018-03-03] MEDS: ASPIRIN 81 MG TAB.CHEW PO SCH (09:00)
[2018-03-03] MEDS: FERROUS SULFATE 325 MG TABEC PO SCH ×2 (09:00→20:28)
[2018-03-03] MEDS: MAGNESIUM OXIDE 400 MG TAB PO SCH (09:00)
--- NOTE | 2018-03-03 09:20 | NUR ---
NORTON CATHETER CLAMPED FOR URINE SPECIMEN COLLECTION FOR RANDOM SODIUM.
[2018-03-03] MEDS: CARVEDILOL 3.125 MG TAB PO SCH ×2 (09:47→20:29)
[2018-03-03] MEDS: TRIAMCINOLONE 0.1% CRM 15 GM TUBE TP SCH (09:48)
[2018-03-03] MEDS: FLUCONAZOLE 100 MG TAB PO SCH (09:48)
[2018-03-03] MEDS: CHLORHEXIDINE GLUCONATE 0.12% 473 ML LIQ MM SCH ×2 (09:49→20:39)
[2018-03-03] MEDS: MILD SOAP AND WATER TP SCH (09:50)
--- NOTE | 2018-03-03 10:06 | NUR ---
PT STATED SHE IS FEELING NERVOUS AND ASKED FOR ATIVAN. VITAL SIGNS STABLE. MEDICATED PT WITH ATIVAN IVP ORDERED PRN.
--- NOTE | 2018-03-03 11:00 | NUR ---
URINE SPECIMEN COLLECTED AND SENT TO LAB FOR RANDOM URINE SODIUM.
[2018-03-03 11:55] VITALS: BP 145/75
[2018-03-03] MEDS: methylPREDNISolone SS 40 MG/ML VIAL IVP SCH ×2 (12:46→20:28)
[2018-03-03] MEDS: INSULIN LISPRO SLIDING SCALE 100 UNITS/ML VIAL SUBQ PRN ×2 (12:46→17:23)
--- NOTE | 2018-03-03 13:17 | NUR ---
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 Per Dr. Lemos, he is anticipating for patient to complete treatment for Pseudomonas Aeruginosa by Tuesday03/05/18 and stated patient does not need a special type of bed at subacute facility, I relayed this information to Amberly at [facility]. He stated their facility can accommodate patients who weight up to 350lbs and reported they have a contract with patient's health insurance. Amberly stated he is unsure if they will have a bed available once patient is medically clear and aren't able to hold/reserve beds ahead of time. He stated they don't have any beds available at this time and he will call our nurses' station over the weekend if a bed becomes available, I provided him with nurses' station phone number. Per patient's sister Kim Arredondo , she is in agreement with patient returning to [facility] if none of the subacute facilities contacted are able to accept.
--- NOTE | 2018-03-03 14:55 | NUR ---
PT HAD 1 LARGE BM, DARK BROWN STOOLS NOTED. PERIANAL CARE DONE. PT TOLERATED ACTIVITY WELL. NO SOB NOTED.
[2018-03-03 16:00] VITALS: BP 142/72
--- NOTE | 2018-03-03 16:59 | NUR ---
CONTINUED TO MONITOER PT ON VENT WITH SETTINGS CHARTED BREATH SOUNDS PRESENT BILAT DIMINISHED SX N PT WITH MIN AMT REDDISH SECS TRACH SITE SECURE AMBU BAG AT BEDSIDE VENT PLUGGED INTO RED OUTLET
[2018-03-03] MEDS: ATORVASTATIN 20 MG TAB PO SCH (17:15)
[2018-03-03] MEDS: INSULIN LANTUS 100 UNITS/ML 10 ML VIAL SUBQ SCH (17:22)
--- NOTE | 2018-03-03 18:10 | NUR ---
PT TOLERATED 25% OF MECHANICAL SOFT DIET, MOSTLY LIQUIDS. ON ASPIRATION PRECAUTIONS.
--- NOTE | 2018-03-03 19:11 | NUR ---
PT AWAKE, WATCHING TV. NO SOB NOTED. NO COMPLAINTS MADE. PT STILL TO BE SEEN BY SPEECH THERAPIST FOR SWALLOW EVALUATION. WILL ENDORSE TO NEXT SHIFT NURSE FOR CONTINUITY OF CARE.
--- NOTE | 2018-03-03 19:12 | NUR ---
RECEIVED REPORT FROM DAY SHIFT RN FOR CONTINUITY OF CARE. PT IS APHASIC, ON TRACH TO VENT WITH FOLLOWING SETTINGS: VT 500, PEEP 8, RATE 20, AND FIO2 40%. PT IS ABLE TO MAKE NEEDS KNOWN, ABLE TO FOLLOW COMMANDS. PT IS OBESE, AND BEDBOUND, SKIN IS INTACT, ONLY SOME ERYTHEMA UNDER BREASTS. PT HAS A RIGHT TRIPLE LUMEN CENTRAL LINE, ASYMPTOMATIC. DISCUSSED PLAN OF CARE WITH PT, PT VERBALIZED UNDERSTANDING. VITAL SIGNS WITHIN NORMAL LIMITS. PT STABLE, NO SIGNS OF DISTRESS NOTED AT THIS TIME. BED IN LOWEST POSITION, BED ALARM ON. CALL LIGHT WITHIN REACH, WILL CONTINUE TO MONITOR.
[2018-03-03 19:47] VITALS: BP 140/73
[2018-03-03] MEDS: LATANOPROST 0.005% OP 2.5 ML BTL OP SCH (20:31)
--- NOTE | 2018-03-03 20:40 | NUR ---
ADMINISTERED SCHEDULED MEDICATIONS, PT TOLERATED WELL. HELD PERIDEX BECAUSE MRSA TREATMENT DONE. PT REFUSED HEPARIN BECAUSE SHE STATES IT HURTS HER TOO MUCH, EXPLAINED THE RISKS AND BENEFITS OF HEPARIN (ESPECIALLY WHEN PT NOT MOVING), PT VERBALIZED UNDERSTANDING BUT STILL REFUSED MEDICATION. PT ALSO REFUSED INSULIN COVERAGE FOR BLOOD GLUCOSE 296 STATING SHE DID NOT EAT AND SHE WILL NOT EAT THROUGHOUT THE NIGHT. EXPLAINED TO PT IVF AND SOLUMEDROL CAN INCREASE BLOOD GLUCOSE AND WE CAN CONTROL IT WITH INSULIN COVERAGE, PT REFUSED.
--- NOTE | 2018-03-03 22:24 | NUR ---
PT STABLE, NO SIGNS OF DISTRESS NOTED AT THIS TIME. BED IN LOWEST POSITION, BED ALARM ON. CALL LIGHT WITHIN REACH, WILL CONTINUE TO MONITOR.
[2018-03-04] VITALS: BP 157/74
[2018-03-04] MEDS: METOCLOPRAMIDE 10 MG TAB PO SCH ×4 (00:46→17:38)
[2018-03-04] MEDS: Z-GUARD PASTE TP SCH ×2 (01:11→13:00)
[2018-03-04] MEDS: HYDRAGUARD CREAM TP SCH ×2 (01:11→13:00)
[2018-03-04] MEDS: ALBUTEROL SULFATE/IPRATROPIU 3 ML SOL IH PRN ×2 (03:42→17:04)
--- NOTE | 2018-03-04 03:45 | NUR ---
PT HAD BOWEL MOVEMENT, CLEANED PT WITH 4 PEOPLE ASSIST. PT TOLERATED WELL.
[2018-03-04 04:00] VITALS: BP 145/76
[2018-03-04] MEDS: PIPER/TAZO 3.375GM/D5W PREMIX 50 ML IV SCH ×3 (05:15→20:16)
[2018-03-04] MEDS: methylPREDNISolone SS 40 MG/ML VIAL IVP SCH ×2 (05:17→12:43)
[2018-03-04] MEDS: LORazepam 2 MG/ML VIAL IVP PRN (05:20)
--- NOTE | 2018-03-04 05:24 | NUR ---
ADMINISTERED SCHEDULED MEDICATIONS, PT TOLERATED WELL. Addendum: 03/04/18 at 0525 by Claudia Osuna RN ALSO ADMINISTERED ATIVAN BECAUSE PT ASKED FOR SOMETHING FOR HER NERVES/ANXIETY.
[2018-03-04] MEDS: DEXT 5% /NACL 0.9% 1,000 ML IV SCH (05:54)
[2018-03-04] MEDS: INSULIN LISPRO SLIDING SCALE 100 UNITS/ML VIAL SUBQ PRN ×4 (05:59→20:20)
[2018-03-04] MEDS: BLOOD GLUCOSE MONITORING 1 DEV DEV FS SCH ×4 (06:08→20:21)
[2018-03-04] MEDS: ALBUTEROL SULFATE/IPRATROPIU 3 ML SOL IH SCH ×3 (06:42→19:08)
--- NOTE | 2018-03-04 06:42 | NUR ---
-PATIENT WAS ASLEEP WHEN I ARRIVED AND AWOKE. TREATMENT WAS GIVE NWITH NO COMPLICATIONS AND PATIENT ALLOWED ME TO SUCTION HER 3 TIMES. ASSISTED PATIENT WITH ORAL CARE AND ENSURED TRACH WAS IN PLACE AND SECURE. PATIENT IS ON SETTINGS OF PRVC, RATE IOF 20, TIDAL VOLUME OF 500, 0.6 I TIME, 40% FIO2 AND PEEP OF 8. ALARMS ARE ON AND AUDIBLE AND CUFF IS DEFLATED.
--- NOTE | 2018-03-04 07:10 | NUR ---
PT REPORT RECEIVED AT BEDSIDE. PT IS RESTING IN BED, NO S/S OF DISTRESS NOTED. NO C/O PAIN AT THIS TIME. TRACH TO VENT, SETTINGS 40% FIO2, VT 500, RESP 20, PEEP 8; PT ON CONTINUOUS O2 MONITORING - O2 SAT 98% AT THIS TIME. NORTON CATHETER IN PLACE, PT IS ON TELEMETRY. BED IN HIGH SIMPSON'S POSITION FOR PT'S COMFORT, CALL LIGHT WITHIN REACH. WILL CONTINUE TO MONITOR.
--- NOTE | 2018-03-04 07:34 | NUR ---
ENDORSED PT TO DAY SHIFT RN FOR CONTINUITY OF CARE. PT IN STABLE CONDITION.
[2018-03-04 08:00] VITALS: BP 140/58
[2018-03-04 08:56] LABS: ALBUMIN 2.4 g/dL (3.4-5.0); ANION GAP 11.3 (8-16); CARBON DIOXIDE 23.3 mmol/L (21-32); CREATININE 1.2 mg/dL (0.6-1.3); POTASSIUM 4.6 mmol/L (3.5-5.1); TOTAL BILIRUBIN 0.3 mg/dL (0.0-1.0)
[2018-03-04 08:58] LABS: MAGNESIUM 2.1 mg/dL (1.8-2.4); PHOSPHORUS 2.2 mg/dL (2.5-4.9)
[2018-03-04] MEDS: CHLORHEXIDINE GLUCONATE 0.12% 473 ML LIQ MM SCH ×2 (09:00→20:18)
[2018-03-04] MEDS: MILD SOAP AND WATER TP SCH (09:00)
--- NOTE | 2018-03-04 09:23 | NUR ---
PATIENT RECEIVED TRACH CARE WITH NO INCIDENT. HME, YAUNKER AND SUCTION TUBING WAS CHANGED WELL.
[2018-03-04 09:27] LABS: HEMATOCRIT 25.1 % (36-48); HEMOGLOBIN 8.4 g/dL (12.0-16.0); MEAN CORPUSCULAR HEMOGLOBIN 33 pg (27-31); MEAN CORPUSCULAR HGB CONC 33 g/dL (33-37); MEAN CORPUSCULAR VOLUME 98.5 fL (80-94); PLATELET COUNT (AUTO) 207 K/uL (140-450); RED BLOOD CELL COUNT(AUTO) 2.54 MIL/uL (4.20-5.40); WHITE BLOOD COUNT (AUTO) 12.4 K/uL (4.8-10.8)
[2018-03-04 09:28] LABS: BASOPHILS % (AUTO) 0.1 % (0.0-2.0); EOSINOPHILS % (AUTO) 0.1 % (0.0-4.0); LYMPHOCYTES # (AUTO) 0.7 K/uL (2.5-16.5); LYMPHOCYTES % (AUTO) 5.5 % (20.5-51.1); MONOCYTES # (AUTO) 0.3 K/uL (0.8-1.0); MONOCYTES % (AUTO) 2.8 % (1.7-9.3); NEUTROPHILS # (AUTO) 11.4 K/uL (1.8-7.7); NEUTROPHILS % (AUTO) 91.5 % (42.2-75.2)
--- NOTE | 2018-03-04 09:45 | NUR ---
ADMINISTERED SCHEDULED MEDS, PT TOLERATED WELL.
[2018-03-04] MEDS: FLUCONAZOLE 100 MG TAB PO SCH (09:58)
[2018-03-04] MEDS: ASPIRIN 81 MG TAB.CHEW PO SCH (09:58)
[2018-03-04] MEDS: MAGNESIUM OXIDE 400 MG TAB PO SCH (09:59)
[2018-03-04] MEDS: DOCUSATE SODIUM 100 MG GELCAP PO SCH ×2 (10:00→20:15)
[2018-03-04] MEDS: LACTOBACILLUS RHAMNOSUS GG 1 EACH CAP PO SCH ×3 (10:01→17:25)
[2018-03-04] MEDS: CARVEDILOL 3.125 MG TAB PO SCH ×2 (10:01→20:15)
[2018-03-04] MEDS: FERROUS SULFATE 325 MG TABEC PO SCH ×2 (10:01→20:15)
[2018-03-04] MEDS: TRIAMCINOLONE 0.1% CRM 15 GM TUBE TP SCH (10:05)
[2018-03-04] MEDS ORDERED: FUROSEMIDE 40 MG/4 ML VIAL IVP SCH (10:15)
--- NOTE | 2018-03-04 10:39 | NUR ---
PATIENT SEEN BY DR LOVING
--- NOTE | 2018-03-04 12:00 | NUR ---
BLOOD SUGAR 415. DR BRYANT NOTIFIED. ADMINISTER 10 UNITS HUMALOG PER DOCTOR.
--- NOTE | 2018-03-04 12:05 | NUR ---
PATIENT RECIEVED TRAY OF FOOD DURING TREATMENT. PATIENT SPILLED ABOUT 3 OZ OF SOUP ON LAP'S TOWEL AND NURSE CAME IN TO CHANGE PATIENT INTO NEW LINENS WHILE THE TREATMENT FINISHED.
[2018-03-04 12:12] VITALS: BP 142/71
[2018-03-04] MEDS: HYDROcodone/APAP 7.5/325 MG 1 TAB PO PRN ×2 (12:52→17:33)
--- NOTE | 2018-03-04 13:43 | NUR ---
03/04/18 RD FOLLOW UP COMPLETED REFER TO NUTRITION PROGRESS NOTE UNDER CARE ACTIVITY FOR ESTIMATED NEEDS. RD RECOMMENDATIONS: 1. TEXTURE/CONSISTENCY: PER BLOWER MECHANIC 2. IF PT IS UNABLE TO EAT PO AND TF FALLS WITHIN GOC INITIATE WITH VITAL AF AT 20ML ADVANCE BY 20ML A4H TO GOAL RATE 50ML/HR +1PACKET PROSOURCE/DAY. PROVIDES DAILY: 1200ML TF, 1500KCALS AND 105gm PROTEIN; ADEQUATE TO MEET >75% ESTIMATED KCAL AND PROTEIN NEEDS. 4. RD TO FOLLOW-UP 2-3DAYS, HIGH RISK JUAN MENDOZA RD[facility]
--- NOTE | 2018-03-04 15:18 | NUR ---
PT GIVEN A BED BATH, AND CHANGED BED LINENS. PT HAD A BM.
[2018-03-04 16:15] VITALS: BP 154/75
--- NOTE | 2018-03-04 16:34 | NUR ---
Consultative Sales Associate Notes: I spoke to Mal from Admissions at [facility] to discuss Patient's status and possible discharge with in Couple days. Per Jose Patient is out of 7 days Bed hold with their facility since 02/28/18 and they have no beds available today. However; Per Mal patient can be put in a waiting list and be accepted when Patient is ready for discharge. Per Jose Patient will need an isolation bed and SNF has none today but possible to have an open bed within couple days or at time Patient is discharged from [facility]. I thank her for the information and faxed her Patient's information and updated Clinical packet.
--- NOTE | 2018-03-04 17:01 | NUR ---
PATIENT'S PEAK PRESSURES WERE HIGH AND LOWERED AGAIN ONCE TRACH TUBE WAS ADVANCED A LITTLE FURTHER DOWN.
--- NOTE | 2018-03-04 17:04 | NUR ---
PATIENT REQUESTED PRN TREATMENT AFTER VENT CHECK. PEAK PRESSURES FURTHER DECREASED.
[2018-03-04] MEDS: ATORVASTATIN 20 MG TAB PO SCH (17:25)
--- NOTE | 2018-03-04 19:38 | NUR ---
PT REPORT GIVEN AT BEDSIDE. PT ENDORSED IN A STABLE CONDITION. NO S/S OF DISTRESS. PT IS TRACH TO VENT, O2 SAT 99%. RT AT BEDSIDE AT THIS TIME.
--- NOTE | 2018-03-04 19:39 | NUR ---
RECEIVED REPORT FROM DAY SHIFT NURSE LOR-RN AT BEDSIDE. PT AOX4-OCCITAN SPEAKING. TRACH TO VENT WITH FLOW RATE 20, FIO2 40 AND O2SAT 98. CVP RIGHT IJ TRIPPLE LUMEN @ TKO. 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 ON BEDREST, SKIN IS INTACT WITH REDNESS ON COCCYX. DISCUSSED PLAN OF CARE AND PT VERBALIZED UNDERSTANDING. NO S/S OF RESPIRATORY DISTRESS OR DISCOMFORT NOTED AT THIS TIME. BED IN LOWEST POSITION, BED BREAKS ON, BOTH SIDE RAILS UP, BED ALARM ON AND FALL PRECAUTIONS IN PLACE. BED SIDE TABLE AND CALL LIGHT ARE WITHIN REACH. WILL CONTINUE TO MONITOR.
[2018-03-04 20:00] VITALS: BP 155/70
--- NOTE | 2018-03-04 20:00 | NUR ---
BLOOD GLUCOSE 330-INSULIN COVERAGE NEEDED. VITAL SIGNS TAKEN AND TOLERATED WELL. NO S/S OF RESPIRATORY DISTRESS OR DISCOMFORT NOTED AT THIS TIME. WILL CONTINUE TO MONITOR.
[2018-03-04] MEDS: LATANOPROST 0.005% OP 2.5 ML BTL OP SCH (20:16)
[2018-03-04] MEDS: INSULIN LANTUS 100 UNITS/ML 10 ML VIAL SUBQ SCH (20:20)
--- NOTE | 2018-03-04 20:20 | NUR ---
SCHEDULED MEDICATION GIVEN AND TOLERATED WELL. NO S/S OF RESPIRATORY DISTRESS OR DISCOMFORT NOTED AT THIS TIME. WILL CONTINUE TO MONITOR.
--- NOTE | 2018-03-04 22:00 | NUR ---
PT SLEEPING IN BED. NO S/S OF RESPIRATORY DISTRESS OR DISCOMFORT NOTED AT THIS TIME. WILL CONTINUE TO MONITOR.
[2018-03-05] VITALS (7 sets, daily range): BP systolic 106–154; BP diastolic 54–88
[2018-03-05] MEDS: METOCLOPRAMIDE 10 MG TAB PO SCH ×5 (00:08→23:01)
--- NOTE | 2018-03-05 00:08 | NUR ---
VITAL SIGNS TAKEN AND TOLERATED WELL. SCHEDULED MEDICATION GIVEN AND TOLERATED WELL. PT REFUSED ORAL CARE STATING "I WANT TO SLEEP NOW." WILL TRY AGAIN LATER. NO S/S OF RESPIRATORY DISTRESS OR DISCOMFORT NOTED AT THIS TIME. WILL CONTINUE TO MONITOR.
[2018-03-05] MEDS: HYDRAGUARD CREAM TP SCH ×2 (01:24→16:23)
[2018-03-05] MEDS: Z-GUARD PASTE TP SCH ×2 (01:25→13:00)
--- NOTE | 2018-03-05 02:00 | NUR ---
PT CONTINUES TO SLEEP. NO S/S OF RESPIRATORY DISTRESS OR DISCOMFORT NOTED AT THIS TIME. WILL CONTINUE TO MONITOR.
[2018-03-05] MEDS: ALBUTEROL SULFATE/IPRATROPIU 3 ML SOL IH PRN ×4 (03:23→20:57)
--- NOTE | 2018-03-05 04:00 | NUR ---
VITAL SIGNS TAKEN AND TOLERATED WELL. NO S/S OF RESPIRATORY DISTRESS OR DISCOMFORT NOTED AT THIS TIME. WILL CONTINUE TO MONITOR.
[2018-03-05] MEDS: LORazepam 2 MG/ML VIAL IVP PRN ×2 (04:19→09:38)
[2018-03-05] MEDS: PIPER/TAZO 3.375GM/D5W PREMIX 50 ML IV SCH (04:19)
--- NOTE | 2018-03-05 04:20 | NUR ---
SCHEDULED MEDICATION GIVEN AND TOLERATED WELL. PT FEELING ANXIOUS- ATIVAN GIVEN AND TOLERATED WELL. NO S/S OF RESPIRATORY DISTRESS OR DISCOMFORT NOTED AT THIS TIME. WILL CONTINUE TO MONITOR.
--- NOTE | 2018-03-05 05:22 | NUR ---
PT CONTINUES TO REFUSE TO BE CHANGED AND SAID, "AFTER BREAKFAST." NO S/S OF RESPIRATORY DISTRESS OR DISCOMFORT NOTED AT THIS TIME. WILL CONTINUE TO MONITOR.
[2018-03-05] MEDS: BLOOD GLUCOSE MONITORING 1 DEV DEV FS SCH ×4 (06:13→20:15)
[2018-03-05] MEDS: INSULIN LISPRO SLIDING SCALE 100 UNITS/ML VIAL SUBQ PRN ×4 (06:14→20:36)
--- NOTE | 2018-03-05 06:14 | NUR ---
SCHEDULED MEDICATION REGLAN GIVEN AND TOLERATED WELL. BLOOD GLUCOSE 242- INSULIN COVERAGE GIVEN AND TOLERATED WELL. NO S/S OF RESPIRATORY DISTRESS OR DISCOMFORT NOTED AT THIS TIME. WILL CONTINUE TO MONITOR.
[2018-03-05] MEDS: ALBUTEROL SULFATE/IPRATROPIU 3 ML SOL IH SCH ×3 (06:47→18:56)
--- NOTE | 2018-03-05 06:48 | NUR ---
PATIENT WAS AWAKE WHENI ENTERED. PEAK PRESSURES WERE AT 57. SUCTIONED PATIENT AND ADMIMNISTERED TREATMENT AND PRESSURES DECREASED. PATIENT WAS TALKATIVE AND IN GOOD SPIRITS. VENT SETTING ARE PRVC 500 +8
--- NOTE | 2018-03-05 06:48 | NUR ---
PATIENT WAS ALERT WHEN I ENTERED THE ROOM. PEAK PRESSURES WERE HITTING 60, AFTER SUCTIONING, REPOSITIONING PATIENT, AND ADMINISTERING TREATMENT, PRESSURES DECREASED TO 39. PATIENT WAS TALKATIVE AND PLEASANT. VENT SETTINGS ARE PRVC 500 +8, RATE OF 20, FIO2 OF 35% AND INSPIRATORY TIME OF 0.6. ALARMS ARE ON AND AUDIBLE AND VENT IS PLUGGED INTO RED OUTLET.
[2018-03-05 06:50] LABS: HEMATOCRIT 25.4 % (36-48); HEMOGLOBIN 8.5 g/dL (12.0-16.0); MEAN CORPUSCULAR HEMOGLOBIN 31 pg (27-31); MEAN CORPUSCULAR HGB CONC 33 g/dL (33-37); MEAN CORPUSCULAR VOLUME 93.2 fL (80-94); PLATELET COUNT (AUTO) 221 K/uL (140-450); RED BLOOD CELL COUNT(AUTO) 2.72 MIL/uL (4.20-5.40); WHITE BLOOD COUNT (AUTO) 11.5 K/uL (4.8-10.8)
[2018-03-05 07:04] LABS: ANION GAP 11.9 (8-16); CARBON DIOXIDE 24.8 mmol/L (21-32); CREATININE 1.3 mg/dL (0.6-1.3); POTASSIUM 4.7 mmol/L (3.5-5.1)
--- NOTE | 2018-03-05 07:05 | NUR ---
ENDORSED PT CARE TO DAY SHIFT NURSE TYRON FOR CONTINUITY OF CARE.
[2018-03-05 07:06] LABS: MAGNESIUM 2.1 mg/dL (1.8-2.4); PHOSPHORUS 2.8 mg/dL (2.5-4.9)
--- NOTE | 2018-03-05 07:15 | NUR ---
RECEIVED PT REPORT AT BEDSIDE. PT IS IN STABLE CONDITION, AWAKE AND ALERT, NO S/S OF DISTRESS NOTED. PT IS TRACH TO VENT: SFIO2 35, VT 500, PEEP 8, RESP 20. CALL LIGHT WITHIN REACH; WILL CONTINUE TO MONITOR.
[2018-03-05 07:18] LABS: BASOPHILS % (MANUAL) 0 % (0-2); EOSINOPHILS % (MANUAL) 0 % (0-4); LYMPHOCYTES % (MANUAL) 9 % (20-46); MONOCYTES % (MANUAL) 8 % (5-12)
[2018-03-05] MEDS: CHLORHEXIDINE GLUCONATE 0.12% 473 ML LIQ MM SCH ×2 (09:00→20:22)
--- NOTE | 2018-03-05 09:00 | NUR ---
CALLED [facility]STANON AND NOTIFIED POSSIBLE DISCHARGE FOR TODAY SPOKE WITH THE NURSE ,THEY ACCEPTED PATIENT BUT WANTED TO ORDER AIR MATRESS BEFORE PT ARRIVES PATIENT CAN GO TO ROOM 122B
--- NOTE | 2018-03-05 09:19 | NUR ---
TREATMENT WAS PRN. PATIENT EXPRESSED SHORTNESS OF BREATH AND PAIN IN HER LEFT ARM WELL TIGHTNESS IN HER CHEST. HEART RATE WAS 130 (70 ABOVE BASELINE)I ALRTED HER NURSE LILLIAN IN TURN INFORMED DR. BRYANT. EKG WAS ORDERED AND MEDICATION WAS GIVEN.
[2018-03-05] MEDS ORDERED: MORPHINE SULFATE 2 MG/ML SYR IVP SCH (09:35)
--- NOTE | 2018-03-05 09:35 | NUR ---
ORDERED MORPHINE IV PUSH NOT ADMINISTERED, PT TOO DROWSY AT THIS TIME. HELD MED PER DR BRYANT.
--- NOTE | 2018-03-05 09:35 | NUR ---
PT REPORTED CHEST PAIN; HEART RATE ON MONITOR RANGING 130-140'S. NOTIFIED DR BRYANT. ORDERS RECEIVED.
[2018-03-05] MEDS: CARVEDILOL 3.125 MG TAB PO SCH ×2 (09:36→20:27)
[2018-03-05] MEDS: ASPIRIN 81 MG TAB.CHEW PO SCH (09:36)
--- NOTE | 2018-03-05 09:36 | NUR ---
ADMINISTERED SCHEDULED AM MEDS. EKG BEING DONE AT THIS TIME.
[2018-03-05] MEDS: FERROUS SULFATE 325 MG TABEC PO SCH ×2 (09:41→20:27)
[2018-03-05] MEDS: DOCUSATE SODIUM 100 MG GELCAP PO SCH ×2 (09:41→20:27)
[2018-03-05] MEDS: MAGNESIUM OXIDE 400 MG TAB PO SCH (09:42)
[2018-03-05] MEDS: LACTOBACILLUS RHAMNOSUS GG 1 EACH CAP PO SCH ×3 (09:48→17:06)
[2018-03-05] MEDS ORDERED: NACL 0.9% 500 ML IV SCH (10:00)
[2018-03-05] MEDS ORDERED: DILTIAZEM 25 MG/5 ML VIAL IVP SCH ×2 (10:00→11:00)
--- NOTE | 2018-03-05 10:02 | NUR ---
EKG SHOWS A.FIB WITH RVR. DR BRYANT ORDERED CARDIZEM 15 MG IV PUSH. MED ADMINISTERED, DR BRYANT PRESENT AT BEDSIDE. PT DROWSY AT THIS TIME.
[2018-03-05] MEDS: FLUCONAZOLE 100 MG TAB PO SCH (10:15)
--- NOTE | 2018-03-05 10:47 | NUR ---
PT STILL A.FIB ON MONITOR; DR BRYANT NOTIFIED. DR BRYANT ORDERED SECOND DOSE OF CARDIZEM IV PUSH.
--- NOTE | 2018-03-05 11:20 | NUR ---
PT ASLEEP IN BED AT THIS TIME, NO S/S OF DISTRESS NOTED. WILL CONTINUE TO MONITOR.
--- NOTE | 2018-03-05 12:01 | NUR ---
CALLED [facility] CASTANON AND SPOKE WITH TING ADMITTING AND NOTIFIED THAT WE ARE HOLDING THE DISCHARGE FOR TODAY BECAUSE OF SUDDEN CHANGE OF HEART RATE ( A-FIB)
[2018-03-05] MEDS ORDERED: PIPER/TAZO 3.375GM/D5W PREMIX 50 ML IV SCH (13:00)
--- NOTE | 2018-03-05 13:34 | NUR ---
DURING VENTILATOR CHECK, PATIENT DID NOT EXHIBIT DISTRESS. HOWEVER, I REMAINED IN HER ROOM BECAUSE HER HIGH PRESSURE ALARMS BEGAN SOUNDING. HER RATE, P1 AND I:E HAD INCREASED. AFTER TREATMENT, ALL VALUES DROPPED BACK TO NORMAL AND PATIENT FELL BACK ASLEEP.
--- NOTE | 2018-03-05 16:00 | NUR ---
PT GIVEN A BED BATH; PT HAD A BM. CLEANED AND CHANGED. REPOSITIONED PT FOR COMFORT, CALL LIGHT WITHIN REACH.
[2018-03-05] MEDS: MILD SOAP AND WATER TP SCH (16:22)
[2018-03-05] MEDS: TRIAMCINOLONE 0.1% CRM 15 GM TUBE TP SCH (16:22)
--- NOTE | 2018-03-05 16:30 | NUR ---
PT STILL SHOWING A.FIB ON THE MONITOR. PT IS ASLEEP, NO S/S OF DISTRESS NOTED. DR BRYANT AWARE.
[2018-03-05] MEDS ORDERED: GENTAMICIN PER PHARMACY MC PRN (17:00)
[2018-03-05] MEDS: ATORVASTATIN 20 MG TAB PO SCH (17:06)
[2018-03-05] MEDS: DILTIAZEM 30 MG TAB PO SCH (17:06)
--- NOTE | 2018-03-05 18:12 | NUR ---
PT SEEN BY DR. RIVERA.
--- NOTE | 2018-03-05 18:21 | NUR ---
SPOKE TO DR. BRYANT; DR BRYANT SAYS TO MONITOR HEART RATE CLOSELY, IF HEART RATE GOES BACK UP TO 120-130, LET DR. FORBES KNOW. PER DR. BRYANT, HE WILL PUT IN A DOSE OF PO CARDIZEM TONIGHT.
--- NOTE | 2018-03-05 19:05 | NUR ---
Received pt stable on vent support at documented settings, hhn tx given, tolerated, no resp distress or SOB noted at this time, Shiley 8 XLT trach secured/patent/midline, alarms set and audible, ambu bag at bedside, vent plugged into red outlet, pulse ox, will cont to monitor.
--- NOTE | 2018-03-05 19:10 | NUR ---
PT REPORT GIVEN AT BEDSIDE. PT ENDORSED IN A STABLE CONDITION. PT IS TRACH TO VENT, NO S/S OF DISTRESS NOTED. CALL LIGHT WITHIN REACH.
--- NOTE | 2018-03-05 19:24 | NUR ---
RECEIVED REPORT FROM DAY SHIFT NURSE AT PT BEDSIDE. PT IN STABLE CONDITION. PT ASLEEP IN BED BUT EASILY AROUSABLE. PT IS TRACH TO VENT FIO2 35, PEEP 8, VT 500, RESP 20. PT HAS NORTON CATHETER IN PLACE. PT HAS R IJ TRIPLE LUMEN. SKIN IS INTACT WITH REDNESS UNDER BREAST AND ABDOMINAL FOLD. BED IS LOCKED, LOW POSITION WITH SIDE RAILS UP X2. BOARD UPDATED. CALL LIGHT IS WITHIN REACH. WILL CONTINUE TO MONITOR.
[2018-03-05] MEDS ORDERED: GENTAMICIN IV SCH (20:00)
[2018-03-05] MEDS ORDERED: NACL 0.9% IV SCH (20:00)
[2018-03-05] MEDS: metroNIDAZOLE 500 MG/NS PREMIX 100 ML IV SCH (20:23)
[2018-03-05] MEDS ORDERED: GENTAMICIN 80 MG/2 ML VIAL ONE (20:28)
[2018-03-05] MEDS: LATANOPROST 0.005% OP 2.5 ML BTL OP SCH (20:31)
[2018-03-05] MEDS: INSULIN LANTUS 100 UNITS/ML 10 ML VIAL SUBQ SCH (20:35)
--- NOTE | 2018-03-05 20:35 | NUR ---
ADMINISTERED SCHEDULED MEDICATIONS. BS CHECKED, 218 INSULIN COVERAGE PROVIDED PER MD ORDERS. PT TOLERATED WELL. WILL CONTINUE TO MONITOR.
[2018-03-05] MEDS ORDERED: metroNIDAZOLE 250 MG/NS PREMIX 50 ML IV SCH (21:00)
[2018-03-05] MEDS ORDERED: APIXABAN 2.5 MG TAB PO SCH (21:00)
--- NOTE | 2018-03-05 21:00 | NUR ---
CRITICAL LAB VALUE, TROPONIN RECEIVED 0.096. ORDERS TO COME FROM DR. FORBES.
[2018-03-05] MEDS ORDERED: DILTIAZEM 30 MG TAB PO SCH (22:00)
[2018-03-05] MEDS ORDERED: HEPARIN PER PHARMACY MC PRN (22:50)
[2018-03-05] MEDS ORDERED: hePARIN / DEXT 5% PREMIX 250 ML IV SCH (22:50)
--- NOTE | 2018-03-05 23:01 | NUR ---
SCHEDULED MEDICATIONS ADMINISTERED. PT TOLERATED WELL. NO SIGNS OF DISTRESS. WILL CONTINUE TO MONITOR.
--- NOTE | 2018-03-05 23:25 | NUR ---
SPOKE WITH PHARMACY AND MD. ORDERED HEPARIN DRIFT WILL BE HELD UNTIL MORNING D/T ELIQUIS ALREADY ADMINISTERED EARLIER THIS EVENING.
[2018-03-06] VITALS: BP 141/79
[2018-03-06] MEDS: Z-GUARD PASTE TP SCH ×2 (01:12→13:44)
[2018-03-06] MEDS: HYDRAGUARD CREAM TP SCH ×2 (01:12→13:44)
--- NOTE | 2018-03-06 01:16 | NUR ---
PT ASLEEP IN BED. NO SIGNS OF DISTRESS. WILL CONTINUE TO MONITOR PT.
--- NOTE | 2018-03-06 03:09 | NUR ---
NO CHANGE IN CONDITION. PT HAS NO SIGNS OR SYMPTOMS OF DISTRESS. WILL CONTINUE TO MONITOR.
[2018-03-06 04:00] VITALS: BP 127/62
[2018-03-06] MEDS: metroNIDAZOLE 500 MG/NS PREMIX 100 ML IV SCH ×3 (04:54→20:26)
--- NOTE | 2018-03-06 04:58 | NUR ---
ADMINISTERED SCHEDULED MEDICATION. PT TOLERATING WELL. PT GOWN IS SOILED HOWEVER PT IS REFUSING TO BE CHANGED AT THIS TIME. ORAL CARE PERFORMED. PT REQUESTING BREATHING TREATMENT. RT HAS BEEN NOTIFIED. WILL CONTINUE TO MONITOR PT.
[2018-03-06] MEDS: ALBUTEROL SULFATE/IPRATROPIU 3 ML SOL IH PRN ×3 (05:18→23:17)
[2018-03-06] MEDS: BLOOD GLUCOSE MONITORING 1 DEV DEV FS SCH ×4 (05:39→20:24)
--- NOTE | 2018-03-06 05:39 | NUR ---
PT BS CHECKED, 138. NO COVERAGE NEEDED PER MD ORDERS. WILL CONTINUE TO MONITOR PT.
[2018-03-06] MEDS: METOCLOPRAMIDE 10 MG TAB PO SCH ×3 (06:05→17:50)
--- NOTE | 2018-03-06 06:07 | NUR ---
ADMINISTERED SCHEDULED MEDICATION. PT TOLERATED WELL. WILL CONTINUE TO MONITOR.
--- NOTE | 2018-03-06 06:59 | NUR ---
PATIENT WAS ON VENT SETTINGS REPORTED. PRVC 500, 0.65, +8, 40%. PATIENT WAS SLEEPING LIGHTLY AND IN NO DISTRESS. NO TREATMENT WAS GIVEN. PEAK PRESSURES WERE HIGH 30S AND HEART RATE WAS 62. ALL ALARMS WERE WITHIN PARAMETERS AND AUDIBLE AND VENT WAS PLUGGED INTO RED OUTLET. Addendum: 03/06/18 at 0742 by Abiola Degroot RT AMBU BAG AT BEDSIDE AND PULSE OX IS ON.
[2018-03-06] MEDS: ALBUTEROL SULFATE/IPRATROPIU 3 ML SOL IH SCH ×3 (07:00→19:29)
--- NOTE | 2018-03-06 07:22 | NUR ---
ENDORSED PT TO DAY SHIFT NURSE FOR CONTINUITY OF CARE. PT IN STABLE CONDITION.
--- NOTE | 2018-03-06 07:23 | NUR ---
REPORT [id number] FROM HAND I TUBE BENDER NURSE, PT SLEEPING QUIETLY IN NAD, RESP EVEN UNLABORED ON TRACH TO VENT, SKIN WARM DRY COLOR WNL, NO IMMEDIATE NEEDS AT THIS TIME, PLAN OF CARE REVIEWED, ALL SAFETY MEASURES IN PLACE, WILL CONTINUE TO MONITOR.
--- NOTE | 2018-03-06 07:50 | NUR ---
DR STARK AND TEAM AT BEDSIDE.
[2018-03-06 08:00] VITALS: BP 126/67
[2018-03-06] MEDS ORDERED: hePARIN / DEXT 5% PREMIX 250 ML IV SCH (08:10)
[2018-03-06] MEDS: DOCUSATE SODIUM 100 MG GELCAP PO SCH ×2 (08:27→21:00)
[2018-03-06] MEDS: FUROSEMIDE 40 MG/4 ML VIAL IVP SCH (08:27)
[2018-03-06] MEDS: ASPIRIN 81 MG TAB.CHEW PO SCH (08:29)
[2018-03-06] MEDS: MAGNESIUM OXIDE 400 MG TAB PO SCH (08:29)
[2018-03-06] MEDS: FERROUS SULFATE 325 MG TABEC PO SCH ×2 (08:30→21:00)
[2018-03-06] MEDS: LACTOBACILLUS RHAMNOSUS GG 1 EACH CAP PO SCH ×3 (08:30→17:49)
[2018-03-06] MEDS: POTASSIUM CHLORIDE 10 MEQ TABER PO SCH (08:30)
[2018-03-06] MEDS: DILTIAZEM 30 MG TAB PO SCH (08:31)
[2018-03-06] MEDS: CARVEDILOL 3.125 MG TAB PO SCH ×2 (08:31→21:00)
--- NOTE | 2018-03-06 08:40 | NUR ---
PT AWAKE ALERT SITTING UP EATING BREAKFAST, DR TODD AT BEDSIDE, AUGUSTIN AM MEDS PILLS WITHOUT PROBLEM, PER DR BRYANT TO HOLD ELAQUIS FOR NOW, AND WAIT FOR DR WHITESIDE TO EVALUATE HER FOR HEPARIN DRIP.
[2018-03-06] MEDS: MILD SOAP AND WATER TP SCH (08:41)
[2018-03-06] MEDS: TRIAMCINOLONE 0.1% CRM 15 GM TUBE TP SCH ×2 (08:42→13:41)
[2018-03-06] MEDS: CHLORHEXIDINE GLUCONATE 0.12% 473 ML LIQ MM SCH ×2 (08:42→20:24)
[2018-03-06] MEDS ORDERED: ENOXAPARIN 120 MG/0.8 ML SYR SUBQ SCH (09:00)
[2018-03-06] MEDS ORDERED: DILTIAZEM 30 MG TAB PO SCH (09:00)
--- NOTE | 2018-03-06 09:35 | NUR ---
US AT BEDSIDE FOR LE DOPPLER STUDY, PT AGGITATED, REFUSES TO RECLINE BACK, PT OFFERED ATIVAN PRN IV TO CALM HER DOWN, PT AGREES TO TAKE ATIVAN BUT ONLY ORAL FORM, DR BRYANT NOTIFIED OF PT'S REQUEST.
[2018-03-06] MEDS: LORATADINE 10 MG TAB PO PRN (09:40)
[2018-03-06] MEDS ORDERED: ENOXAPARIN 60 MG/0.6 ML SYR SUBQ SCH (09:45)
[2018-03-06] MEDS ORDERED: LORazepam 0.5 MG TAB PO SCH (09:45)
[2018-03-06] MEDS ORDERED: ENOXAPARIN 80 MG/0.8 ML SYR SUBQ SCH (09:45)
[2018-03-06 11:26] LABS: HEMATOCRIT 27.4 % (36-48); HEMOGLOBIN 8.9 g/dL (12.0-16.0); MEAN CORPUSCULAR HEMOGLOBIN 31 pg (27-31); MEAN CORPUSCULAR HGB CONC 32 g/dL (33-37); MEAN CORPUSCULAR VOLUME 94.5 fL (80-94); PLATELET COUNT (AUTO) 262 K/uL (140-450); RED CELL DISTRIBUTION WIDTH 16.4 % (11.6-13.7); WHITE BLOOD COUNT (AUTO) 13.5 K/uL (4.8-10.8)
--- NOTE | 2018-03-06 11:35 | NUR ---
US TECH AT BED SIDE, PT NOW CALMER, AGREES TO TO GET LOWE EXT DOPPLER DONE.
[2018-03-06 11:41] LABS: ANION GAP 9.1 (8-16); CARBON DIOXIDE 26.3 mmol/L (21-32); CREATININE 1.2 mg/dL (0.6-1.3); POTASSIUM 4.4 mmol/L (3.5-5.1)
[2018-03-06 11:45] LABS: MAGNESIUM 1.9 mg/dL (1.8-2.4); PHOSPHORUS 2.1 mg/dL (2.5-4.9)
[2018-03-06 12:00] VITALS: BP 119/78
--- NOTE | 2018-03-06 12:17 | NUR ---
SISTER CASA [phone] AT BEDSIDE, PT CONDITION AND PLAN UPDATED, WILL NOTIFY HER IF ANY CHANGES OR PLAN FOR DC
--- NOTE | 2018-03-06 12:20 | NUR ---
SISTER CASA [phone] WANTS TO BE NOTIFIED WHEN PT IS GETTING DISCHARGED, SHE STATES SHE IS ALREADY ACCEPTED AT [facility], SHE WOULD LIKE HER TO GO THERE IF BED IS AVAILABLE. SHE STATES SHE DIDN'T KNOW [place] [facility] [place]
[2018-03-06 12:34] LABS: LYMPHOCYTES % (MANUAL) 9 % (20-46); MONOCYTES % (MANUAL) 5 % (5-12)
[2018-03-06] MEDS: DILTIAZEM 60 MG TAB PO SCH ×2 (12:41→17:49)
--- NOTE | 2018-03-06 13:15 | NUR ---
NORTON CARE DONE, PERICARE DONE, BED BATH GIVEN, KENALOG CREAM APPLIED, HYDROGUARD, Z GUARD APPLIED, PT INITIALLY REFUSED TO BE CLEANED AND CHANGED BUT AGREED TO BE CLEANED, GOWN CHANGED, LINEN CHANGED, PT TOLERATED FAIRLY. WILL CONTINUE TO MOTNIOR.
--- NOTE | 2018-03-06 14:29 | NUR ---
PT SLEEPING QUIETLY IN NAD, VENTILATOR ALARMS OF LOW PRESSURE AND APNEA, PT'S CHEST NOTED WITH GOOD RISE AND FALL, O2 SAT 100%, COLOR WNL, CONNECTION CHECKED FOR LEAK, NO LEAK FOUND, RT CALLED TO BEDSIDE.
[2018-03-06] MEDS ORDERED: GENTAMICIN 140 MG in DEXTROSE 5% 100 ML IV SCH (15:00)
[2018-03-06 16:00] VITALS: BP 110/58
--- NOTE | 2018-03-06 16:25 | NUR ---
PT RESTING QUIETLY, VITALS STABLE, BLOOD SUGAR 156, WILL GIVE 2 UNITS INSULIN PER SLIDING SCALE.
[2018-03-06] MEDS: ATORVASTATIN 20 MG TAB PO SCH (17:49)
[2018-03-06] MEDS: INSULIN LISPRO SLIDING SCALE 100 UNITS/ML VIAL SUBQ PRN ×2 (17:57→20:23)
--- NOTE | 2018-03-06 18:05 | NUR ---
* ST NOTE * Pt seen at bedside w/nsg student and instructor & Nsg Frannie present. Pt alert, cooperative and engaged throughout session, reporting no c/o pain at this time. Bedside dysphagia and oral mechanism exams completed. See evaluation report for further details. Pt tolerating 6/6 alternating PO trials of regular solid saltine crackers as well as 5/5 alternating PO trials of thin liquid cranberry juice via a straw, all w/o s/s of aspiration or choking at this time. Upon suctioning, Nsg observing no cranberry-colored liquids or substances in suctioned secretions, w/pt thus passing modified bedside swallow evaluation 2/2 to pt's tracheostomy status. It is thus recommended pt may continue PO diet consistency of mechanical soft textures w/thin liquids for all meals, w/pt and nsg/caregivers verbalizing understanding and agreement w/clinician's recommendations. No further ST follow up recommended at this time. Pt and caregivers/nsg education completed regarding results of evaluation; benefits of abiding by aspiration precautions and recommended PO diet consistency; and prognosis for improvement; with pt and caregivers/nsg verbalizing understanding and agreement w/clinician's recommendations. Recommend: - Continue PO DIET CONSISTENCY OF MECHANICAL SOFT TEXTURES W/THIN LIQUIDS for all meals - Maintain ASPIRATION PRECAUTIONS DURING PT'S PO INTAKE OF SOLIDS/LIQUIDS/MEDICATIONS - TRACH CUFF MUST BE DEFLATED PRIOR TO AND DURING PO INTAKE OF SOLIDS/LIQUIDS/MEDICATION - PO MEDICATION ADMINISTRATION OF WHOLE PILLS OR CRUSHED IN PUREE/MECH SOFT TEXTURES - Remind pt of Aspiration Precautions prior to meals/during setup of tray - Suction PRN No further ST follow up recommended at this time. G8996 G8997 CI G8998 CI NOMS Level 2 Time In/Out 17:30 - 18:00
--- NOTE | 2018-03-06 19:05 | NUR ---
REPORT GIVEN TO CLAMP JIG ASSEMBLER NURSE NOE GONZALEZ IN STABLE CONDITION.
--- NOTE | 2018-03-06 19:05 | NUR ---
RECEIVED REPORT FROM DAY SHIFT NURSE AT PT BEDSIDE. PT IN STABLE CONDITION. PT IS AWAKE IN BED WATCHING TV WITH NO SIGNS OF DISTRESS. PT HAS R IJ TRIPLE LUMEN. PATENT AND INTACT. DRESSING CLEAN AND DRY. PT IS TRACH TO VENT. NORTON CATHETER IN PLACE. SKIN IS INTACT. REDNESS NOTED UNDER SKIN FOLDS. BED IS LOCKED, LOW POSITION WITH SIDE RAILS UP X2. BOARD UPDATED. CALL LIGHT IS WITHIN REACH. WILL CONTINUE TO MONITOR.
--- NOTE | 2018-03-06 19:45 | NUR ---
RT AT BEDSIDE WITH PT GIVING BREATHING TREATMENT. PT HAS NO SIGNS OF DISTRESS. WILL CONTINUE TO MONITOR.
[2018-03-06] MEDS: COLISTIMETHATE SODIUM 150 MG VIAL IH SCH (19:56)
[2018-03-06 20:00] VITALS: BP 139/83
[2018-03-06] MEDS: LATANOPROST 0.005% OP 2.5 ML BTL OP SCH (20:27)
[2018-03-06] MEDS: ENOXAPARIN 80 MG/0.8 ML SYR SUBQ SCH (20:34)
[2018-03-06] MEDS: ENOXAPARIN 60 MG/0.6 ML SYR SUBQ SCH (20:38)
[2018-03-06] MEDS: INSULIN LANTUS 100 UNITS/ML 10 ML VIAL SUBQ SCH (20:50)
[2018-03-06] MEDS: HYDROcodone/APAP 7.5/325 MG 1 TAB PO PRN (21:00)
--- NOTE | 2018-03-06 21:00 | NUR ---
ADMINISTERED ALL SCHEDULED MEDICATIONS. BS CHECKED, 178, INSULIN COVERAGE GIVEN PER MD ORDERS. PT TOLERATED WELL. PT C/O PAIN. NORCO GIVEN. WILL CONTINUE TO MONITOR PT.
[2018-03-07] VITALS (7 sets, daily range): BP systolic 106–134; BP diastolic 44–97
[2018-03-07] MEDS: METOCLOPRAMIDE 10 MG TAB PO SCH ×5 (00:04→23:59)
--- NOTE | 2018-03-07 00:04 | NUR ---
ADMINISTERED SCHEDULED MEDICATION. PT TOLERATED WELL. NO SIGNS OF DISTRESS. WILL CONTINUE TO MONITOR.
[2018-03-07] MEDS: HYDRAGUARD CREAM TP SCH ×2 (00:05→13:15)
[2018-03-07] MEDS: Z-GUARD PASTE TP SCH ×2 (00:05→13:14)
--- NOTE | 2018-03-07 02:33 | NUR ---
PT ASLEEP IN BED NO SIGNS OF DISTRESS. WILL CONTINUE TO MONITOR.
[2018-03-07] MEDS: ALBUTEROL SULFATE/IPRATROPIU 3 ML SOL IH PRN ×2 (03:13→15:54)
--- NOTE | 2018-03-07 04:11 | NUR ---
PT RESTING IN BED WATCHING TV. VS STABLE. PT HAS NO C/O PAIN. WILL CONTINUE TO MONITOR.
--- NOTE | 2018-03-07 05:41 | NUR ---
ADMINISTERED SCHEDULED MEDICATION. PERFORMED ORAL CARE. PT TOLERATED WELL. WILL CONTINUE TO MONITOR.
--- NOTE | 2018-03-07 06:05 | NUR ---
BS CHECKED, 104. NO COVERAGE NEEDED PER ORDERS. WILL CONTINUE TO MONITOR PT.
--- NOTE | 2018-03-07 06:34 | NUR ---
PATIENT WAS SLEEPING COMFORTABLY. NO DISTRESS. NO ALARMS SOUNDING. VITALS WERE STABLE AND BREATH SOUNDS WERE DIMINISHED. NO TREATMENT INDICATION AT THIS TIME, SO PATIENT WAS ALLOWED TO REST. CUFF IS INFLATED AT 30 CM H2O, AMBU BAG TA BEDSIDE, ALARMS ARE ON AND AUDIBLE, AND VENT IS PLUGGED INTO RED OUTLET.
[2018-03-07] MEDS: ALBUTEROL SULFATE/IPRATROPIU 3 ML SOL IH SCH ×3 (06:49→19:14)
[2018-03-07 07:01] LABS: BASOPHILS % (AUTO) 0.1 % (0.0-2.0); EOSINOPHILS # (AUTO) 0.5 K/uL (0-0.4); EOSINOPHILS % (AUTO) 3.1 % (0.0-4.0); HEMATOCRIT 27.6 % (36-48); HEMOGLOBIN 9.1 g/dL (12.0-16.0); LYMPHOCYTES # (AUTO) 2.8 K/uL (2.5-16.5); MEAN CORPUSCULAR HEMOGLOBIN 31 pg (27-31); MEAN CORPUSCULAR HGB CONC 33 g/dL (33-37); MEAN CORPUSCULAR VOLUME 94.3 fL (80-94); MONOCYTES # (AUTO) 0.9 K/uL (0.8-1.0); MONOCYTES % (AUTO) 6.1 % (1.7-9.3); NEUTROPHILS # (AUTO) 10.7 K/uL (1.8-7.7); NEUTROPHILS % (AUTO) 71.7 % (42.2-75.2); PLATELET COUNT (AUTO) 270 K/uL (140-450); RED BLOOD CELL COUNT(AUTO) 2.93 MIL/uL (4.20-5.40); RED CELL DISTRIBUTION WIDTH 16.6 % (11.6-13.7); WHITE BLOOD COUNT (AUTO) 14.9 K/uL (4.8-10.8)
--- NOTE | 2018-03-07 07:16 | NUR ---
ENDORSED PT TO DAY SHIFT NURSE FOR CONTINUITY OF CARE. PT IN STABLE CONDITION.
[2018-03-07] MEDS: BLOOD GLUCOSE MONITORING 1 DEV DEV FS SCH ×4 (07:30→21:16)
[2018-03-07] MEDS ORDERED: WATER STERILE 10 ML MC ONE ×2 (07:53→18:45)
[2018-03-07] MEDS: COLISTIMETHATE SODIUM 150 MG VIAL IH SCH ×2 (07:53→19:15)
[2018-03-07 07:59] LABS: ANION GAP 11.5 (8-16); CARBON DIOXIDE 23.9 mmol/L (21-32); CREATININE 1.2 mg/dL (0.6-1.3); POTASSIUM 4.4 mmol/L (3.5-5.1)
--- NOTE | 2018-03-07 08:00 | NUR ---
NOTED SMALL AMOUNTS OF CONTINIOUS BLEEDING ON PT'S POSTERIOR LEFT UPPER ARM POST LOVENOX SQ INJECTION SITE ADMINISTERED LAST NIGHT. SITE CLEANSED WITH SALINE AND COVERED WITH STERILE GAUZE. WILL CONTINUE TO MONITOR THE SITE FOR CONTINUOS BLEEDING. INSTRUCTED PT THAT WE NEED ROTATE THE SITE WHEN GIVING LOVENOX SUBQ. PT VERBALIZED UNDERSTANDING. RESIDENT DR. BRYANT NOTIFIED.
--- NOTE | 2018-03-07 08:05 | NUR ---
PATIENT WAS GIVEN COLY-MYCIN AND CUFF WAS DEFLATED WHEN FOOD WAS BROUGHT IN.
[2018-03-07 08:20] LABS: MAGNESIUM 1.7 mg/dL (1.8-2.4); PHOSPHORUS 3.2 mg/dL (2.5-4.9)
[2018-03-07] MEDS: MILD SOAP AND WATER TP SCH (09:00)
--- NOTE | 2018-03-07 09:10 | NUR ---
PATIENT REFUSED ABG.
[2018-03-07] MEDS: LACTOBACILLUS RHAMNOSUS GG 1 EACH CAP PO SCH ×3 (09:30→17:45)
--- NOTE | 2018-03-07 09:30 | NUR ---
PT REFUSED KENALOG TOPICAL CREAM APPLICATION, RISKS AND BENEFITS EXPLAINED TO PT, VERBALIZED UNDERSTANDING.
[2018-03-07] MEDS: ASPIRIN 81 MG TAB.CHEW PO SCH (09:32)
[2018-03-07] MEDS: DILTIAZEM 60 MG TAB PO SCH ×3 (09:33→17:45)
[2018-03-07] MEDS: DOCUSATE SODIUM 100 MG GELCAP PO SCH ×2 (09:34→21:28)
[2018-03-07] MEDS: CARVEDILOL 3.125 MG TAB PO SCH ×2 (09:35→21:29)
[2018-03-07] MEDS: FERROUS SULFATE 325 MG TABEC PO SCH ×2 (09:35→21:29)
[2018-03-07] MEDS: POTASSIUM CHLORIDE 10 MEQ TABER PO SCH (09:37)
[2018-03-07] MEDS: MAGNESIUM OXIDE 400 MG TAB PO SCH (09:37)
[2018-03-07] MEDS: LORATADINE 10 MG TAB PO PRN (09:41)
[2018-03-07] MEDS: ENOXAPARIN 60 MG/0.6 ML SYR SUBQ SCH ×2 (09:46→21:22)
[2018-03-07] MEDS: ENOXAPARIN 80 MG/0.8 ML SYR SUBQ SCH ×2 (09:47→21:24)
[2018-03-07] MEDS: FUROSEMIDE 40 MG/4 ML VIAL IVP SCH (09:48)
[2018-03-07] MEDS: CHLORHEXIDINE GLUCONATE 0.12% 473 ML LIQ MM SCH ×2 (09:48→21:27)
--- NOTE | 2018-03-07 10:00 | NUR ---
PT REFUSED REPOSITIONING Q 2HRS, STATED SHE CAN NOT TOLERATE THE TURNING AND GETS RESPIRATORY DISTRESS AT TIMES WHEN REPOSITIONED. RISKS AND CONSEQUENCES EXPLAINED TO PT, VERBALIZED UNDERSTANDING.
--- NOTE | 2018-03-07 11:08 | NUR ---
Skimmer Reverberatory Note: Per Jose from [facility] , she would like to know if patient will require an isolation bed or if isolation may be colonized, pending response from . Per Lelia from [facility] they dont have any beds available in their subacute unit. Per Alisha from [facility] they dont have any beds available in their subacute unit. Per Genoveva from [facility] they don't have any beds in their subacute unit at this time. Per Julio C from [facility] , they dont have any beds available in their subacute unit. Admission coordinator Carmen from [facility] requested inquiry to be fax to her, she provided me with their fax number, . I faxed inquiry to [facility]. Per Chapin from [facility] she received inquiry and her budget director will review it and Chapin will call me back. Per patient's sister Kim Arredondo , she is in agreement with patient returning to [facility] if none of the subacute facilities contacted are able to accept.
--- NOTE | 2018-03-07 12:30 | NUR ---
TRACH CARE WAS DONE WITH NO INCIDENCE. PATIENT WAS WEANED DOWN TO 35% FIO2 AND AFTER 15 MINUTES, PATIENT'S O2 SATURATION IS 99%
--- NOTE | 2018-03-07 14:07 | NUR ---
Creel Clerk Note: Per Dr. Lemos, patient is on isolation due to pseudomonas aeruginosa ENTRY LEVEL FINANCIAL ANALYST MDRO (sputum). I faxed culture results to [facility]. Per Jose from [facility] , her creative services director will review culture results and she will call me back. Per Chapin from [facility] , they dont have any female isolation beds in their subacute unit at this time. Kuldip Morales from [facility] , she received inquiry I faxed her and stated they dont have beds in their subactue at this time. Addendum: 03/07/18 at 1409 by Sierra WORTHINGTON correction: Kuldip Morales from [facility] , she received inquiry I faxed her and stated they dont have beds in their subacute at this time. Addendum: 03/07/18 at 1550 by Sierra WORTHINGTON I informed there aren't any accepting subacute facilities at this time.
[2018-03-07] MEDS ORDERED: LEVEMIR SUBQ (14:18)
[2018-03-07] MEDS ORDERED: APIX5TAB PO (14:20)
[2018-03-07] MEDS ORDERED: CAR30 PO (14:21)
--- NOTE | 2018-03-07 15:01 | NUR ---
03/07/18 RD FOLLOW UP COMPLETED PLEASE REFER TO NUTRITION PROGRESS NOTE UNDER CARE ACTIVITY FOR ESTIMATED NUTRITIONAL NEEDS. 1. CONTINUE MECHANICAL SOFT, CCHO 60 DIET TOLERATED. 2. RECOMMEND RENAL AND CARDIAC DIET TOLERATED. 3. RECOMMEND NEPRO BID. 4. RD TO FOLLOW-UP 3-5 DAYS, MODERATE RISK YUDY CABRALES RD
[2018-03-07] MEDS: ATORVASTATIN 20 MG TAB PO SCH (17:45)
--- NOTE | 2018-03-07 19:31 | NUR ---
ENDORSED PATIENT TO LUNCH TRUCK DRIVER NURSE. PATIENT IS SLEEPING IN STABLE CONDITION. CALL LIGHT WITHIN REACH. BED ON LOWEST POSITION.
--- NOTE | 2018-03-07 19:33 | NUR ---
RECEIVED PT FROM WOODY RN PT LUXEMBOURGER SPEAKER AAOX4 TRACH TO VENT DEPENDENT FIO2 35% RR 20 TV 500 PEEP 8 , RT IJ TRIPLE LUMEN INFUSING WELL TKO NOT SOB NOTED ON TELEMETRY CONTROLLED AFIB HR 83 BED BOUND PT BRUISES ON UA AND REDNESS ON ABD AND ABD FOLDS AND BREAST FOLD NORTON CATH DRAINING WELL YELLOW URINE INITIAL ASSESSMENT DONE
[2018-03-07] MEDS: INSULIN LANTUS 100 UNITS/ML 10 ML VIAL SUBQ SCH (20:00)
--- NOTE | 2018-03-07 21:00 | NUR ---
BLOOD SUGAR TEST 74 PT NOW IS EATING HE HS SNACK
[2018-03-07] MEDS: LATANOPROST 0.005% OP 2.5 ML BTL OP SCH (21:28)
[2018-03-07] MEDS: HYDROcodone/APAP 7.5/325 MG 1 TAB PO PRN (21:42)
[2018-03-08] VITALS: BP 105/57
--- NOTE | 2018-03-08 00:33 | NUR ---
HOB 30 DEGREE ORAL CARE GIVEN WITH VAP KIT PT REPOSITIONED TRACH TO VENT REMAIN SAME SETTINGNOT DISTRESS NOTED AT TNHIS TIME
[2018-03-08] MEDS: HYDRAGUARD CREAM TP SCH ×2 (01:45→13:00)
[2018-03-08] MEDS: Z-GUARD PASTE TP SCH ×2 (01:46→13:00)
--- NOTE | 2018-03-08 02:00 | NUR ---
PT VERBALIZED TO BE HUNGRY AND FOOD IS PROVIDED NOT DISTRESS NOTED TRACH TO VENT REMAIN SAME SETTING
[2018-03-08] MEDS: ALBUTEROL SULFATE/IPRATROPIU 3 ML SOL IH PRN (02:20)
--- NOTE | 2018-03-08 02:42 | NUR ---
PT SUCTIONED NECESSARY HOB 30 DEGREE
[2018-03-08 04:00] VITALS: BP 98/65
--- NOTE | 2018-03-08 04:00 | NUR ---
SPONGE BATH GIVEN LINEN CHANGED PT IS SUCTIONED NECESSARY AFTER ORAL CARE DONE NOT SOB NOTED
[2018-03-08 06:01] LABS: HEMATOCRIT 26.6 % (36-48); HEMOGLOBIN 8.6 g/dL (12.0-16.0); MEAN CORPUSCULAR HEMOGLOBIN 31 pg (27-31); MEAN CORPUSCULAR HGB CONC 32 g/dL (33-37); MEAN CORPUSCULAR VOLUME 94.5 fL (80-94); PLATELET COUNT (AUTO) 263 K/uL (140-450); RED BLOOD CELL COUNT(AUTO) 2.81 MIL/uL (4.20-5.40); RED CELL DISTRIBUTION WIDTH 16.5 % (11.6-13.7); WHITE BLOOD COUNT (AUTO) 13.9 K/uL (4.8-10.8)
[2018-03-08] MEDS: METOCLOPRAMIDE 10 MG TAB PO SCH ×3 (06:01→18:00)
[2018-03-08] MEDS: BLOOD GLUCOSE MONITORING 1 DEV DEV FS SCH ×4 (06:12→20:47)
--- NOTE | 2018-03-08 06:17 | NUR ---
BLOOD SUGAR TEST 69; PT REMAIN STABLE NOT SOB NOTED TRACH TO VENT REMAIN SAME SETTING, PT IS SUCTIONED NECESSARY
[2018-03-08 06:21] LABS: ANION GAP 10.9 (8-16); CARBON DIOXIDE 24.9 mmol/L (21-32); CREATININE 1.3 mg/dL (0.6-1.3); POTASSIUM 4.8 mmol/L (3.5-5.1)
[2018-03-08 06:27] LABS: MAGNESIUM 1.7 mg/dL (1.8-2.4); PHOSPHORUS 3.9 mg/dL (2.5-4.9)
[2018-03-08 07:08] LABS: EOSINOPHILS % (MANUAL) 4 % (0-4); MONOCYTES % (MANUAL) 7 % (5-12)
[2018-03-08 07:09] LABS: LYMPHOCYTES % (MANUAL) 22 % (20-46)
--- NOTE | 2018-03-08 07:30 | NUR ---
RECEIVED PT AAOX4. NO SOB NOTED. NO C/O PAIN AT THIS TIME. PT ON CHRONIC TRACH TO MECHANICAL VENT. WITH RT IJ TRIPLE LUMEN CENTRAL LINE, PATENT, SITE CLEAN AND DRY. CHEST, DIMINISHED AIR ENTRY TO THE BASES, RHONCHI HEARD BILATERALLY. ABDOMEN LARGE BUT SOFT, BOWEL SOUNDS PRESENT. WITH NORTON CATHETER DRAINING MODERATE AMOUNTS OF SLIGHTLY DARK LAYLA URINE. WILL REPOSITION PT Q 2HRS. PT STILL REFUSING SCD'S, RISKS AND CONSEQUENCES EXPLAINED PT. ABLE TO SUCTION SELF WITH THE USE OF YANKAUER. INSTRUCTED PT TO CALL FOR ASSISTANCE, CALL LIGHT WITHIN REACH, PT VERBALIZED UNDERSTANDING.
--- NOTE | 2018-03-08 07:40 | NUR ---
It Sales Consultant Note: Late entry for 03/07/18: Per Jose from [facility] , they don't have any isolation beds at this time, unable to accept patient. Jose stated they might possibly have an isolation bed on 03/09/18, made aware.
--- NOTE | 2018-03-08 07:45 | NUR ---
RECIVED PT ON VENT WITH SETTINGS CHARTED BREATH SOUNDS PRESENT BILAT DIMINISHED SXN PT WITH SMALL AMT REDDISH SECS TRACH SITE SECURE AMBU BAG AT BEDSIDE VENT PLUGGED INTO RED OUTLET WILL CONTINUE TO MONITOR PT ON VENT
[2018-03-08] MEDS: ALBUTEROL SULFATE/IPRATROPIU 3 ML SOL IH SCH ×3 (07:52→19:21)
[2018-03-08 08:00] VITALS: BP 110/63
[2018-03-08] MEDS: COLISTIMETHATE SODIUM 150 MG VIAL IH SCH ×2 (08:12→19:21)
[2018-03-08] MEDS: LACTOBACILLUS RHAMNOSUS GG 1 EACH CAP PO SCH ×3 (09:04→17:59)
[2018-03-08] MEDS: MAGNESIUM OXIDE 400 MG TAB PO SCH (09:04)
[2018-03-08] MEDS: DOCUSATE SODIUM 100 MG GELCAP PO SCH ×2 (09:04→21:18)
[2018-03-08] MEDS: FERROUS SULFATE 325 MG TABEC PO SCH ×2 (09:05→21:19)
[2018-03-08] MEDS: DILTIAZEM 120 MG CAPER PO SCH (09:05)
[2018-03-08] MEDS: ASPIRIN 81 MG TAB.CHEW PO SCH (09:05)
[2018-03-08] MEDS: CARVEDILOL 3.125 MG TAB PO SCH ×2 (09:05→21:19)
[2018-03-08] MEDS: FUROSEMIDE 40 MG/4 ML VIAL IVP SCH (09:11)
[2018-03-08] MEDS: MILD SOAP AND WATER TP SCH (09:41)
[2018-03-08] MEDS: CHLORHEXIDINE GLUCONATE 0.12% 473 ML LIQ MM SCH ×2 (09:45→21:15)
[2018-03-08] MEDS: TRIAMCINOLONE 0.1% CRM 15 GM TUBE TP SCH (09:46)
[2018-03-08] MEDS: ENOXAPARIN 60 MG/0.6 ML SYR SUBQ SCH ×2 (09:47→21:22)
[2018-03-08] MEDS: ENOXAPARIN 80 MG/0.8 ML SYR SUBQ SCH ×2 (09:47→21:24)
--- NOTE | 2018-03-08 10:15 | NUR ---
PT AWAKE, TALKING TO HER SISTER AT THE BEDSIDE. NO SOB NOTED. NO COMPLAINTS MADE.
[2018-03-08 11:51] VITALS: BP 109/80
--- NOTE | 2018-03-08 12:15 | NUR ---
Hemodialysis Charge Nurse Note: Per Jose from [facility] , they still dont have any isolation female beds available in their subacute unit at this time, she stated they might have one tomorrow 03/09/18. Per Chelita from [facility] they dont have any beds available in their subacute unit. [facility] Per Marilyn from [facility] they don't have any beds in their subacute unit at this time. Per Julio C from [facility] , they dont have any beds available in their subacute unit. Per Carmen from [facility] , they dont have any beds available in their subacute unit. Per Chapin from [facility] , they dont have isolation beds in their subacute unit. Per Phyllis from [facility] , they dont have any beds in their subacute unit, they are anticipating having beds next Tuesday03/17/18. I informed there is no accepting subacute facility at this time. Per patient's sister Kim Arredondo , she is in agreement with patient returning to [facility] if none of the subacute facilities contacted are able to accept.
--- NOTE | 2018-03-08 15:15 | NUR ---
PATIENT IS SLEEPING IN BED IN STABLE CONDITION. NO DISTRESS NOTED AT THIS TIME. CALL LIGHT WITHIN REACH. WILL CONTINUE TO MONITOR.
[2018-03-08 16:00] VITALS: BP 133/71
--- NOTE | 2018-03-08 17:20 | NUR ---
CONTINUED TO MONITOR PT ON VENT WITH SETTINGS CHARTED BREATH SOUNDS PRESENT BILAT DIMINISHED SXN PT WITH SCANT AMT OFF WHITE SECS TRACH SITE SECURE AMBU BAG AT BEDSIDE VENT PLUGGED INTO RED OUTLET
[2018-03-08] MEDS: ATORVASTATIN 20 MG TAB PO SCH (18:00)
[2018-03-08] MEDS: INSULIN LISPRO SLIDING SCALE 100 UNITS/ML VIAL SUBQ PRN (18:01)
--- NOTE | 2018-03-08 19:28 | NUR ---
ENDORSED PATIENT TO MACHINE SHOP WORKER NURSE. PATIENTS IV IS CLEAN DRY AND INTACT. NO DISTRESS NOTED AT THIS TIME. PATIENT IS STABLE. CALL LIGHT WITHIN REACH.
--- NOTE | 2018-03-08 19:30 | NUR ---
RECEIVED PT FROM WOODY RN PT AAOX4 ON BEDREST TRACH TO VENT DEPENDENT FIO2 35% TV 500 PEEP 8 RR 20 CENTRAL LINE ON RT IJ PATENTE NOT SOB NOTED REMAIN STABLE AT THIS TIME NORTON CTH DRAINING WELL YELLOW URINE INITIAL ASSESSMENT DONE
[2018-03-08 20:00] VITALS: BP 112/63
[2018-03-08] MEDS: INSULIN LANTUS 100 UNITS/ML 10 ML VIAL SUBQ SCH (20:00)
[2018-03-08] MEDS: LATANOPROST 0.005% OP 2.5 ML BTL OP SCH (21:17)
[2018-03-08] MEDS: HYDROcodone/APAP 7.5/325 MG 1 TAB PO PRN (21:20)
--- NOTE | 2018-03-08 21:30 | NUR ---
BLOOD SUGAR TEST 144 NOT COVERAGE PTON TELMETRY SR AND SUCTIONED NECESSARY
[2018-03-09] VITALS: BP 110/49
--- NOTE | 2018-03-09 | NUR ---
HOB 30 DEGREE ORAL CARE GIVEN TRACH TO VENT REMAIN SAME SETTING PT GETTING SLEEP AFTER PAIN MEDIC GIVEN.
[2018-03-09] MEDS: METOCLOPRAMIDE 10 MG TAB PO SCH ×4 (00:37→18:07)
[2018-03-09] MEDS: ALBUTEROL SULFATE/IPRATROPIU 3 ML SOL IH PRN ×2 (01:12→09:13)
--- NOTE | 2018-03-09 01:30 | NUR ---
RESP THERAPY IS HERE ASSISTING THE PT
[2018-03-09] MEDS: HYDRAGUARD CREAM TP SCH ×2 (01:36→13:50)
[2018-03-09] MEDS: Z-GUARD PASTE TP SCH ×2 (01:37→13:51)
[2018-03-09 04:00] VITALS: BP 113/61
--- NOTE | 2018-03-09 04:00 | NUR ---
HOB 30 DEGREE ORAL CARE GIVEN ONTELMETRY CONTROLLED AFIB TRACH TO VENT REMAIN SAME SETTING OT SOB NOTED
[2018-03-09] MEDS: BLOOD GLUCOSE MONITORING 1 DEV DEV FS SCH ×4 (06:16→21:26)
--- NOTE | 2018-03-09 06:29 | NUR ---
BLOOD SUGAR TEST 109 , PT REMAIN STABLE AT THIS TIME, TRACH TO VENT REMAIN SAME SETTING
--- NOTE | 2018-03-09 07:02 | NUR ---
RECEIVED PATIENT FROM REHAB RN NURSE AT BEDSIDE FOR CONTINUITY OF CARE. PATIENT AAOX4 ON BEDREST, TRACH TO VENT DEPENDENT FIO2 35% TV 500 PEEP 8 RR 20. CENTRAL LINE ON RT IJ TRIPLE LUMEN IN PLACE, PATENT AND ASYMPTOMATIC. RESPIRATIONS EVEN AND UNLABORED, NOT SOB NOTED OR DISTRESS NOTED. NORTON CATHETER DRAINING TO GRAVITY WELL WITH YELLOW URINE. UPDATED BOARD. SAFETY AND ISOLATION PRECAUTION IN PLACE, CALL LIGHT WITHIN REACH. WILL CONTINUE TO MONITOR PATIENT.
[2018-03-09] MEDS ORDERED: WATER STERILE 10 ML MC ONE (07:04)
[2018-03-09] MEDS: COLISTIMETHATE SODIUM 150 MG VIAL IH SCH ×2 (07:06→19:00)
[2018-03-09] MEDS: ALBUTEROL SULFATE/IPRATROPIU 3 ML SOL IH SCH ×3 (07:06→19:11)
--- NOTE | 2018-03-09 07:50 | NUR ---
RECIVED PT ON VENT WITH SETTINGS CHARTED BREATH SOUNDS PRESENT BILAT DIMINISHES SXN PT WITH MIN AMT OFF WHITE SECS TRACH SITE SECURE AMBU BAG AT BEDSIDE VENT PLUGGED INTO RED OUTLET WILL CONTINUE TO MONITOR PT ON VENT
[2018-03-09 08:00] VITALS: BP 114/71
--- NOTE | 2018-03-09 08:02 | NUR ---
DOCTORS DOING THEIR ROUNDS, WAITING FOR NEW ORDERS.
[2018-03-09] MEDS: CHLORHEXIDINE GLUCONATE 0.12% 473 ML LIQ MM SCH ×2 (09:30→21:03)
[2018-03-09] MEDS: DILTIAZEM 120 MG CAPER PO SCH (09:31)
[2018-03-09] MEDS: FERROUS SULFATE 325 MG TABEC PO SCH ×2 (09:31→21:04)
[2018-03-09] MEDS: LACTOBACILLUS RHAMNOSUS GG 1 EACH CAP PO SCH ×3 (09:31→16:28)
[2018-03-09] MEDS: ASPIRIN 81 MG TAB.CHEW PO SCH (09:31)
[2018-03-09] MEDS: CARVEDILOL 3.125 MG TAB PO SCH ×2 (09:32→21:04)
[2018-03-09] MEDS: DOCUSATE SODIUM 100 MG GELCAP PO SCH ×2 (09:32→21:03)
[2018-03-09] MEDS: MAGNESIUM OXIDE 400 MG TAB PO SCH (09:32)
[2018-03-09] MEDS: MILD SOAP AND WATER TP SCH (09:48)
[2018-03-09] MEDS: TRIAMCINOLONE 0.1% CRM 15 GM TUBE TP SCH (09:56)
[2018-03-09] MEDS: ENOXAPARIN 60 MG/0.6 ML SYR SUBQ SCH ×2 (10:00→21:14)
[2018-03-09] MEDS: ENOXAPARIN 80 MG/0.8 ML SYR SUBQ SCH ×2 (10:00→21:13)
--- NOTE | 2018-03-09 10:00 | NUR ---
ORDERED MEDICATION GIVEN. PATIENT TOLERATED THEM WELL. NO SIGNS OF DISTRESS OR SOB NOTED. PATIENT RESTING IN BED, WILL CONTINUE TO MONITOR PATIENT.
[2018-03-09] MEDS: HYDROcodone/APAP 7.5/325 MG 1 TAB PO PRN ×3 (10:05→21:05)
--- NOTE | 2018-03-09 11:55 | NUR ---
PATIENT HAD BOWEL MOVEMENT. PATIENT CHANGED, CLEANED, AND REPOSITIONED FOR COMFORT. PATIENT PREFERS TO SIT UP IN BED. RESPIRATIONS EVEN AND UNLABORED. NO SIGNS OF DISTRESS NOTED. BLOOD SUGAR 133, NO COVERAGE NEEDED. SAFETY AND ISOLATION PRECAUTION IN PLACE, CALL LIGHT WITHIN REACH, WILL CONTINUE TO MONITOR PATIENT.
[2018-03-09 12:00] VITALS: BP 117/69
--- NOTE | 2018-03-09 12:17 | NUR ---
Finishing Room Operator Note: Per Jose from [facility] , they still don't have any isolation female beds available in their subacute unit at this time. Per Lelia from [facility] , they don't have any beds available in their subacute unit at this time. Per Alisha from [facility] , they don't have any beds available in their subacute unit at this time. Per Marilyn from [facility] they don't have any beds available in their subacute unit at this time. Per Julio C from [facility] , they don't have any beds available in their subacute at this time. Per Qasim from [facility] don't have any isolation female beds available at this time in their subacute unit. Per Phyllis from [facility] , they are anticipating having female beds available in their subacute unit next Tuesday03/17/18, no beds right now. Dr. Lemos made aware of above attempts.
[2018-03-09 16:00] VITALS: BP 111/54
[2018-03-09] MEDS: ATORVASTATIN 20 MG TAB PO SCH (16:28)
--- NOTE | 2018-03-09 16:31 | NUR ---
BLOOD SUGAR 166, PATIENT REFUSED COVERAGE. EDUCATED PATIENT BUT SHE REINFORCED REFUSAL. WILL CONTINUE TO MONITOR PATIENT.
--- NOTE | 2018-03-09 17:20 | NUR ---
CONTINUED TO MONITOR PT ON ENT WITH SETTINGS CHARTED BREATH SOUNDS PRESENT BILAT DIMINISHED SXN PT WITH MIN TO MOD AMT SECS TRACH SITE SECURE AMBUBAG AT BEDSIDE VENT PLUGGED INTO RED OUTLET
--- NOTE | 2018-03-09 18:01 | NUR ---
ORDERED MEDICATIONS GIVEN. PATIENT TOLERATED THEM WELL. NO SIGNS OF DISTRESS OR SOB NOTED. WILL CONTINUE TO MONITOR PATIENT.
--- NOTE | 2018-03-09 18:55 | NUR ---
SUPERVISOR STOCK RANCH NOTIFIED RN, PATIENT'S HR DECREASED, WENT LOW 44. CHECKED IN ON PATIENT. PATIENT SITTING UP IN BED, SPEAKING ON PHONE, NO SIGNS OF DISTRESS. WILL CONTINUE TO MONITOR.
--- NOTE | 2018-03-09 19:21 | NUR ---
RT GAVE DUONEB TX AND WAS NOT ABLE LOCATE COLY-MCIN MED IN TX ROOM. PT STABLE AND ALERT RN NOTIFIED. Addendum: 03/09/18 at 2030 by Wilbert Holloway RT COLY-MYCIN NOT TO BE GIVEN BY RT
--- NOTE | 2018-03-09 19:31 | NUR ---
RECEIVED REPORT FORM [place] RN DAYSHIFT NURSE AT BEDSIDE FOR CONTINUITY OF CARE, PT IN STABLE CONDITION.
--- NOTE | 2018-03-09 19:31 | NUR ---
REPORT GIVEN AT BEDSIDE FOR CONTINUITY OF CARE. PATIENT RESTING AND IN STABLE CONDITION.
[2018-03-09 20:00] VITALS: BP 133/100
[2018-03-09] MEDS: INSULIN LANTUS 100 UNITS/ML 10 ML VIAL SUBQ SCH (20:00)
--- NOTE | 2018-03-09 20:00 | NUR ---
PT IN BED WITH HOB UP 90%. ALL FALLS AND CONTACT PRECAUTIONS IN PLACE. PT HAS TRIPLE LUMEN CATH IN R IJ RUNNING AT 10MLS TO KVO. NO S/S OF INFILTRATION NOTED. PT ALSO HAS NORTON CATH INTACT WHICH HAD DRAINED ABOUT 200 MLS OF CLOUDY YELLOW URINE. PT HAS A TRACH TO VENT WITH VENT SETTINGS FOLLOWS FI02 35 TV 500 PEEP IS 8. PT HAS YANKOUR IN HAND AND TAKES THE LIBERTY OF SUCTIONING MOUTH. PT SUCTIONED X 3 REQUESTED AFTER COUGHING. V/S FOLLOWS T 98.4 P 94 R 20 B/P 133/100 02 99%
--- NOTE | 2018-03-09 21:00 | NUR ---
PT RECEIVED ALL MEDICATIONS DUE AT THIS TIME. F/S 121. PT DECLINED INSULIN COVERAGE BUT WAS REMINDED THAT PT IS RECEIVING THE LONG ACTING LANTUS NOT THE SHORT ACTING INSULIN COVERAGE FROM THE SLIDING SCALE. RN EXPLAINED THAT PT DOESN'T REQUIRE SHORT TERM INSULIN COVERAGE BECAUSE HER F/S WAS 121. PT VERBALIZED UNDERSTANDING AND DID TAKE THE LANTUS THAT WAS ORDERED AT THIS TIME. PT ALSO C/O OF PAIN IN LEGS AND GENERALIZED PAIN IN BODY 11/27. PT TO BE MEDICATED WITH PRN NORCO. AND WILL BE MONITORED FOR EFFECT.
[2018-03-09] MEDS: LATANOPROST 0.005% OP 2.5 ML BTL OP SCH (21:09)
--- NOTE | 2018-03-09 21:30 | NUR ---
PT GIVEN PRN NORCO REQUESTED. DR. KHOURY INFECTIOUS DISEASE DR AT BEDSIDE TO EVALUATE PT.
--- NOTE | 2018-03-09 22:30 | NUR ---
PT SLEEPING POSITIVE EFFECT OF PRN NORCO NOTED.
[2018-03-10] VITALS: BP 124/73
[2018-03-10] MEDS: METOCLOPRAMIDE 10 MG TAB PO SCH ×4 (00:06→18:52)
--- NOTE | 2018-03-10 00:14 | NUR ---
PT REQUESTED HOB DOWN TO 45%. PT RANG CALL ARELLANO A FEW MINUTES LATER, RN CAME INTO ROOM AND ELEVATED HOB BACK TO 90%. PT SAID SHE WAS HAVING DIFFICULTY BREATHING AND TRACH TO VENT CONNECTION BECAME LOOSE. PT SAID THAT SHE WAS ABLE TO CONNECT HERSELF BACK AGAIN. PT STATING AT 99% TRACH IS ATTACHED CORRECTLY TO VENT AT THIS TIME. PT ALMOST REFUSED THE REGLAN BUT RN EDUCATED PT THAT MEDICATION WAS FOR GERD SYMPTOMS AND PT SAID OK SHE WOULD TAKE IT. PT NOW IN BED SITTING UP 90% WATCHING TV. PT HAD SUCTIONED MOUTH WITH YANKOUR, NO S/S OF PAIN OR DISTRESS NOTED NO SOB NOTED, CALL ARELLANO IN REACH. V/S FOLLOWS T 98.1 P 86 R 20 B/P 124/73 02 99% WITH ALL CURRENT VENT SETTINGS.
[2018-03-10] MEDS: Z-GUARD PASTE TP SCH ×2 (01:00→13:04)
[2018-03-10] MEDS: HYDRAGUARD CREAM TP SCH ×2 (01:00→13:04)
--- NOTE | 2018-03-10 02:00 | NUR ---
PT AWAKE IN BED WATCHING T.V. NO S/S OF PAIN OR DISTRESS NOTED. FALLS PRECAUTIONS IN PLACE AND CALL ARELLANO IN REACH.
[2018-03-10 04:00] VITALS: BP 118/70
--- NOTE | 2018-03-10 04:30 | NUR ---
PT IN BED SLEEPING BUT AROUSABLE TO NAME. PT DECLINED TO BE TURNED AND CHANGE. EXPLAINED RISKS AND BENEFITS PT CONTINUED TO REFUSE. PT SAID I WILL TURN AND CHANGE IN THE AM. NO S/S OF PAIN OR DISTRESS, V/S FOLLOWS T 98.1 P 68 R 20 B/P 118/70 02 99%.
[2018-03-10] MEDS: BLOOD GLUCOSE MONITORING 1 DEV DEV FS SCH ×4 (06:07→20:52)
--- NOTE | 2018-03-10 06:19 | NUR ---
PT SITTING UP IN BED DOZING AND AROUSABLE TO SOUND. PT CONTINUES TO REFUSE TO TURN. 6AM REGALAN TAKEN AND F/S IS 101 NO COVERAGE NEEDED. PT HAS CALL ARELLANO IN REACH AND ALL FALLS PRECAUTIONS IN PLACE.
--- NOTE | 2018-03-10 07:23 | NUR ---
REPORT GIVEN TO CANDACE RN DAYSHIFT NURSE FOR CONTINUITY OF CARE, PT IN STABLE CONDITION.
--- NOTE | 2018-03-10 07:24 | NUR ---
RECEIVED PATIENT FROM DIRECTOR DIGITAL ANALYTICS NURSE AT BEDSIDE FOR CONTINUITY OF CARE. PATIENT AAOX4 ON BEDREST, AWAKE AND ALERT, TRACH TO VENT DEPENDENT FIO2 35% TV 500 PEEP 8 RR 20. CENTRAL LINE ON RT IJ TRIPLE LUMEN IN PLACE, PATENT AND ASYMPTOMATIC. RESPIRATIONS EVEN AND UNLABORED, NOT SOB NOTED OR DISTRESS NOTED. NORTON CATHETER DRAINING TO GRAVITY WELL WITH YELLOW URINE. UPDATED BOARD. SAFETY AND ISOLATION PRECAUTION IN PLACE, CALL LIGHT WITHIN REACH. WILL CONTINUE TO MONITOR PATIENT.
[2018-03-10] MEDS: ALBUTEROL SULFATE/IPRATROPIU 3 ML SOL IH SCH ×3 (07:37→19:33)
[2018-03-10] MEDS: COLISTIMETHATE SODIUM 150 MG VIAL IH SCH ×2 (07:38→19:34)
[2018-03-10] MEDS ORDERED: WATER STERILE 10 ML MC ONE ×2 (07:38→19:18)
[2018-03-10 08:00] VITALS: BP 131/62
[2018-03-10] MEDS: MAGNESIUM OXIDE 400 MG TAB PO SCH (08:29)
[2018-03-10] MEDS: ASPIRIN 81 MG TAB.CHEW PO SCH (08:29)
[2018-03-10] MEDS: DILTIAZEM 120 MG CAPER PO SCH (08:30)
[2018-03-10] MEDS: CARVEDILOL 3.125 MG TAB PO SCH ×2 (08:30→20:57)
[2018-03-10] MEDS: LACTOBACILLUS RHAMNOSUS GG 1 EACH CAP PO SCH ×3 (08:30→16:37)
[2018-03-10] MEDS: DOCUSATE SODIUM 100 MG GELCAP PO SCH ×2 (08:30→20:56)
[2018-03-10] MEDS: FERROUS SULFATE 325 MG TABEC PO SCH ×2 (08:30→20:57)
--- NOTE | 2018-03-10 08:30 | NUR ---
ORDERED MEDICATIONS GIVEN. PATIENT TOLERATED THEM WELL. NO SIGNS OF DISTRESS OR SOB NOTED. WILL CONTINUE TO MONITOR PATIENT.
[2018-03-10] MEDS: CHLORHEXIDINE GLUCONATE 0.12% 473 ML LIQ MM SCH ×2 (08:31→20:53)
[2018-03-10] MEDS: ENOXAPARIN 80 MG/0.8 ML SYR SUBQ SCH (08:40)
[2018-03-10] MEDS: ENOXAPARIN 60 MG/0.6 ML SYR SUBQ SCH (08:40)
[2018-03-10] MEDS: MILD SOAP AND WATER TP SCH (08:47)
[2018-03-10] MEDS: TRIAMCINOLONE 0.1% CRM 15 GM TUBE TP SCH (08:47)
[2018-03-10] MEDS: HYDROcodone/APAP 7.5/325 MG 1 TAB PO PRN ×3 (08:54→21:09)
[2018-03-10 09:36] LABS: CARBON DIOXIDE 25.7 mmol/L (21-32); CREATININE 1.2 mg/dL (0.6-1.3); POTASSIUM 4.7 mmol/L (3.5-5.1)
--- NOTE | 2018-03-10 10:08 | NUR ---
FIO2 TITRATED TO 30% PT NOT SOB AT THIS TIME. SPO2 REMAINS 98%. WILL CONTINUE TO MONITOR.
--- NOTE | 2018-03-10 10:45 | NUR ---
DR. BRYANT IN TO EVALUATE THE PATIENT. WILL WAIT FOR HIS ORDERS.
--- NOTE | 2018-03-10 11:47 | NUR ---
ORDERED MEDICATIONS GIVEN. PATIENT TOLERATED THEM WELL.BLOOD SUGAR 109, NO COVERAGE GIVEN. NO SIGNS OF DISTRESS OR SOB NOTED. PATIENT DENIES PAIN AT THE MOMENT. SAFETY AND ISOLATION PRECAUTION IN PLACE, CALL LIGHT WITHIN REACH. WILL CONTINUE TO MONITOR PATIENT.
[2018-03-10 12:00] VITALS: BP 105/59
--- NOTE | 2018-03-10 12:45 | NUR ---
FAMILY AT BEDSIDE, PATIENT SITTING IN BED EATING LUNCH. NO SIGN OF DISTRESS OR SOB NOTED. WILL CONTINUE TO MONITOR PATIENT.
--- NOTE | 2018-03-10 13:49 | NUR ---
VENT CHECK COMPLETED, BREATHING TX ADMINISTERED. PT SUCTIONED OBTAINED SMALL AMOUNT OF THICK WHITE SECRETIONS, AIRWAY IS PATENT AND TRACH IS SECURE. WILL CONTINUE TO MONITOR.
--- NOTE | 2018-03-10 14:10 | NUR ---
PATIENT HAD MINIMAL SOFT BM. PATIENT CHANGED, CLEANED AND REPOSITIONED FOR COMFORT AND TO OFFLOAD PRESSURE AREAS. HYDRAGUARD AND ZGUARD APPLIED. PATIENT TOLERATED IT WELL. SAFETY AND ISOLATION PRECAUTION IN PLACE, CALL LIGHT WITHIN REACH, WILL CONTINUE TO MONITOR PATIENT.
[2018-03-10 16:00] VITALS: BP 111/79
--- NOTE | 2018-03-10 16:23 | NUR ---
Executive Communications Manager Note: Per Jose from [facility] , they still don't have any isolation female beds available in their subacute unit at this time. Per Lelia from [facility][Note 3] , they don't have any beds available in their subacute unit at this time. Per Alisha from [facility] , they don't have any beds available in their subacute unit at this time. Per Marilyn from [facility] they don't have any beds available in their subacute unit at this time. Per Mike from [facility] , they cant accommodate patient due to patients weight, currently 304lbs, they can accommodate up to 300lbs. Per Qasim from [facility] don't have any isolation female beds available at this time in their subacute unit. Per Phyllis from [facility] , they are anticipating having female beds available in their subacute unit next Tuesday03/17/18, no beds right now.
[2018-03-10] MEDS: ATORVASTATIN 20 MG TAB PO SCH (16:37)
--- NOTE | 2018-03-10 16:38 | NUR ---
BLOOD SUGAR 165, PATIENT REFUSING COVERAGE. EDUCATED PATIENT, BUT SHE STATED NO INSULIN NOW BUT SHE WILL TAKE THE LANTUS TONIGHT. ORDERED MEDICATIONS GIVEN. PT C/O 11/27 GENERALIZED PAIN, PRN MEDICATION GIVEN. PATIENT TOLERATED THEM WELL. VS WNL. SAFETY AND ISOLATION PRECAUTION IN PLACE, CALL LIGHT WITHIN REACH, WILL CONTINUE TO MONITOR PATIENT.
--- NOTE | 2018-03-10 17:24 | NUR ---
PT REMAINS ON DOCUMENTED VENT SETTINGS. TRACH REMAINS SECURE WITH A PATENT AIRWAY. VENT ALARMS REMAIN ON AND FUNCTIONING. PT NOT IN ANY DISTRESS AT THIS TIME.
--- NOTE | 2018-03-10 18:53 | NUR ---
ORDERED MEDICATION GIVEN. PATIENT TOLERATED WELL. PATIENT WISHED TO BE TURNED. PATIENT ACCOMMODATED. WILL CONTINUE TO MONITOR PATIENT.
--- NOTE | 2018-03-10 19:36 | NUR ---
REPORT GIVEN AT BEDSIDE FOR CONTINUITY OF CARE. PATIENT RESTING AND IN STABLE CONDITION.
--- NOTE | 2018-03-10 19:36 | NUR ---
RECEIVED REPORT AT BEDSIDE FROM CANDACE RN DAYSHIFT NURSE FOR CONTINUITY OF CARE, PT IN STABLE CONDITION.
[2018-03-10 20:00] VITALS: BP 126/66
--- NOTE | 2018-03-10 20:00 | NUR ---
PT SITTING UP IN BED 45%ALL SIDE RAILS UP CALL ARELLANO IN REACH AND ALL FALLS PRECAUTIONS IN PLACE AT THIS TIME. RESPIRATORY AT BEDSIDE ADMINISTERING INHALANT ABT AND NEB TREATMENT. PT HAS NO S/S OF PAIN OR DISTRESS NOTED. VENT SETTINGS UNCHANGED FIO 35 TV 500 PEEP IS 8. IJ SITE INTACT AND RUNNING N/S AT 10MLS/HR. V/S FOLLOWS T 98.8 P 80 R 20 B/P 126/66 02 100%.
[2018-03-10] MEDS: LATANOPROST 0.005% OP 2.5 ML BTL OP SCH (20:56)
[2018-03-10] MEDS: APIXABAN 2.5 MG TAB PO SCH (20:58)
[2018-03-10] MEDS: INSULIN LANTUS 100 UNITS/ML 10 ML VIAL SUBQ SCH (21:03)
--- NOTE | 2018-03-10 21:15 | NUR ---
PT C/O 6/10 GENERALIZED BODY PAIN, GIVEN PRN NORCO , WILL MONITOR FOR EFFECT.
[2018-03-10] MEDS: ALBUTEROL SULFATE/IPRATROPIU 3 ML SOL IH PRN (23:18)
[2018-03-11] VITALS (7 sets, daily range): BP systolic 101–132; BP diastolic 59–80
[2018-03-11] MEDS: METOCLOPRAMIDE 10 MG TAB PO SCH ×4 (00:56→16:55)
--- NOTE | 2018-03-11 01:00 | NUR ---
PT RECEIVED 12 AM MEDS , WAS TURNED AND REPOSITIONED AND PROVIDED HYDROGUARD AND Z GUARD PROTECTIVE CREAM FOR THE REDDENED AREAS PER ORDER. PT SUCTIONED CONTAINER CHANGED AND NEW YANKOUR PROVIDED. PT DOES OWN ORAL CARE. PT WAS SUCTIONED X 1. NO S/S OF SOB , PAIN OR DISTRESS NOTED. V/S FOLLOWS T 98.7 P 78 R 20 B/P 101/65 02 98% ALL FALLS PRECAUTIONS IN PLACE AND CALL ARELLANO IN REACH.
[2018-03-11] MEDS: HYDRAGUARD CREAM TP SCH ×2 (01:10→13:00)
[2018-03-11] MEDS: Z-GUARD PASTE TP SCH ×2 (01:10→13:04)
[2018-03-11] MEDS: ALBUTEROL SULFATE/IPRATROPIU 3 ML SOL IH PRN ×2 (03:05→16:11)
--- NOTE | 2018-03-11 04:30 | NUR ---
PT IN BED WITH EYES CLOSED BUT AROUSABLE TO NAME. PT TURNED AND REPOSITIONED PT SUCTIONED X 1 NO S/S OF PAIN OR DISTRESS NOTED. V/S T 98.4 P 73 R 20 B/P 105/60 02 100% WITH VENT SETTINGS.ALL FALLS PRECAUTIONS IN PLACE AND CALL ARELLANO IN REACH.
--- NOTE | 2018-03-11 07:03 | NUR ---
PATIENT WAS RESTING BUT AWAKE AND ALERT WHEN I ARRIVED. O2 SATURATIONS WERE AT 99, PULSE AT 78 AND RATE AT 20. TOOK BIPAP OFF AND AFTER TREATMENT PLACED PATIENT ON 12L OXIMIZER. NOSE WAS PRESSED DOWN BUT NO BREAKDOWN OF SKIN WAS NOTED. AFTER 15 MINUTES ON OXIMIZER, PATIENT'S O2 SATURATIONS WERE AT 92%. WILL CONTINUE TO MONITOR. Addendum: 03/11/18 at 0849 by Abiola Degroot RT THIS NOTE WAS MEANT FOR BENNY MCGILL. ROOM 122-B.
--- NOTE | 2018-03-11 07:10 | NUR ---
REPORT GIVEN TO KAITLIN RN DAYSHIFT NURSE AT BEDSIDE FOR CONTINUITY OF CARE, PT IN STABLE CONDITION.
--- NOTE | 2018-03-11 07:15 | NUR ---
RECEIVED PT REPORT FROM COCOA BEAN ROASTER HELPER NURSE, CHRISTOPHER, AT BEDSIDE. PATIENT AAOX2, AWAKE AND ALERT. TRACH TO VENT DEPENDENT FIO2 30%, TV 500, PEEP 8, RR 20. DENIES PAIN. CENTRAL LINE ON RT IJ TRIPLE LUMEN IN PLACE, PATENT AND ASYMPTOMATIC. RESPIRATIONS EVEN AND UNLABORED, NORTON CATHETER DRAINING YELLOW URINE. BREATH SOUNDS DIMINISHED. UPDATED BOARD. BED IN LOWEST POSITION. SAFETY AND ISOLATION PRECAUTION IN PLACE, CALL LIGHT WITHIN REACH. WILL CONTINUE TO MONITOR PATIENT.
[2018-03-11 07:28] LABS: BASOPHILS # (AUTO) 0.1 K/uL (0.00-0.22); BASOPHILS % (AUTO) 0.8 % (0.0-2.0); EOSINOPHILS # (AUTO) 0.2 K/uL (0-0.4); EOSINOPHILS % (AUTO) 3.3 % (0.0-4.0); HEMATOCRIT 24.7 % (36-48); HEMOGLOBIN 8.1 g/dL (12.0-16.0); LYMPHOCYTES # (AUTO) 1.2 K/uL (2.5-16.5); LYMPHOCYTES % (AUTO) 17.2 % (20.5-51.1); MEAN CORPUSCULAR HEMOGLOBIN 32 pg (27-31); MEAN CORPUSCULAR HGB CONC 33 g/dL (33-37); MEAN CORPUSCULAR VOLUME 95.5 fL (80-94); MONOCYTES # (AUTO) 0.8 K/uL (0.8-1.0); MONOCYTES % (AUTO) 11.8 % (1.7-9.3); NEUTROPHILS # (AUTO) 4.6 K/uL (1.8-7.7); NEUTROPHILS % (AUTO) 66.9 % (42.2-75.2); PLATELET COUNT (AUTO) 220 K/uL (140-450); RED BLOOD CELL COUNT(AUTO) 2.58 MIL/uL (4.20-5.40); RED CELL DISTRIBUTION WIDTH 17.1 % (11.6-13.7); WHITE BLOOD COUNT (AUTO) 6.9 K/uL (4.8-10.8)
[2018-03-11] MEDS: COLISTIMETHATE SODIUM 150 MG VIAL IH SCH ×2 (07:36→19:16)
[2018-03-11] MEDS: BLOOD GLUCOSE MONITORING 1 DEV DEV FS SCH ×4 (07:40→20:15)
[2018-03-11] MEDS: ALBUTEROL SULFATE/IPRATROPIU 3 ML SOL IH SCH ×3 (07:40→19:17)
--- NOTE | 2018-03-11 07:40 | NUR ---
PATIENT WAS ALERT AND AWAKE. COLY-MYCIN AND DUONEB WERE ADMINISTERED SEPARATELY AND WERE TOLERATED WELL. O2 SATURATIONS WERE 100, PULSE 84 AND RATE 21. BREATH SOUNDS WERE DIMINISHED. AMBU-BAG AT BEDSIDE. ALARMS ARE ON AND AUDIBLE. VENT IS PLUGGED INTO RED OUTLET. PATIENT'S CUFF WAS DEFLATED TO EAT BEFORE RT DEPARTURE. WILL CONTINUE TO MONITOR.
[2018-03-11 07:48] LABS: ANION GAP 9.2 (8-16); CARBON DIOXIDE 25.4 mmol/L (21-32); CREATININE 1.2 mg/dL (0.6-1.3); POTASSIUM 4.6 mmol/L (3.5-5.1)
[2018-03-11 07:53] LABS: MAGNESIUM 1.8 mg/dL (1.8-2.4); PHOSPHORUS 3.1 mg/dL (2.5-4.9)
[2018-03-11] MEDS: FERROUS SULFATE 325 MG TABEC PO SCH ×2 (08:42→21:02)
[2018-03-11] MEDS: CHLORHEXIDINE GLUCONATE 0.12% 473 ML LIQ MM SCH ×2 (08:44→21:00)
[2018-03-11] MEDS: MAGNESIUM OXIDE 400 MG TAB PO SCH (08:46)
[2018-03-11] MEDS: DILTIAZEM 120 MG CAPER PO SCH (08:47)
[2018-03-11] MEDS: DOCUSATE SODIUM 100 MG GELCAP PO SCH ×2 (08:47→21:01)
[2018-03-11] MEDS: ASPIRIN 81 MG TAB.CHEW PO SCH (08:47)
[2018-03-11] MEDS: LACTOBACILLUS RHAMNOSUS GG 1 EACH CAP PO SCH ×3 (08:48→16:53)
[2018-03-11] MEDS: CARVEDILOL 3.125 MG TAB PO SCH ×2 (08:48→21:02)
--- NOTE | 2018-03-11 08:48 | NUR ---
SCHEDULED MED ADMINISTERED. ABD FOLD HAS INTERDRY, NO REDNESS NOTED. PT REFUSED TRIAMCINOLONE CREAM, RISK AND BENEFIT EXPLAINED, PT STILL REFUSING STATED NO, NOTHING.
[2018-03-11] MEDS: MILD SOAP AND WATER TP SCH (08:50)
[2018-03-11] MEDS: APIXABAN 2.5 MG TAB PO SCH ×2 (08:54→21:03)
[2018-03-11] MEDS: TRIAMCINOLONE 0.1% CRM 15 GM TUBE TP SCH (09:00)
[2018-03-11] MEDS: HYDROcodone/APAP 7.5/325 MG 1 TAB PO PRN ×2 (09:46→21:02)
--- NOTE | 2018-03-11 16:00 | NUR ---
PT WAS CLEANED BY WOOD TYPE CUTTER. DEEP SUCTION PERFORMED, WHITE MUCOUS CAME OUT. CALLED RT FOR BREATHING TX PER PT'S REQUEST.
--- NOTE | 2018-03-11 16:25 | NUR ---
BLOOD SUGAR 77, OFFERED PT 1 APPLE JUICE, PT DRANK IT.
--- NOTE | 2018-03-11 16:52 | NUR ---
Final Cigar And Box Examiner Notes: I called [facility] from [facility] . Per Jose SN[facility] still don't have any isolation female beds available in their subacute unit at this time. Per Jose on Tuesday she will follow up with [facility] and see if there is a possible bed available or Patient has been colonized to go to another room. Jose stated that she will call unit if any changes happen over the weekend. I thanked Jose for the information and I ended the call.
[2018-03-11] MEDS: ATORVASTATIN 20 MG TAB PO SCH (16:53)
--- NOTE | 2018-03-11 19:15 | NUR ---
REPORT GIVEN TO ART TRACER NURSE AT BEDSIDE, PT IN STABLE CONDITION.
--- NOTE | 2018-03-11 19:16 | NUR ---
RECEIVED PT IN STABLE CONDITION FROM AM NURSE. AWAKE,ALERT AND ORIENTED X4. ON TRACH TO VENT. HAS OCCASIONAL PRODUCTIVE COUGH . NO RESPIRATORY DISTRESS NOTED. ABLE TO SUCTION MOUTH BY SELF. BEDREST. WITH RT INTERNAL JUGULAR CENTRAL LINE 3 LUMEN. CLEAR AND PATENT. NORTON CATHETER DRAINING TO CLEAR YELLOW URINE. PLAN OF CARE DISCUSSED AND VERBALIZED UNDERSTANDING. ABDOMINAL FOLDS AND IGNACIA UNDERNEATH BREAST WITH INTER DRY . NO C/O ANY DISCOMFORT NOR PAIN NOTED. BED ON LOW POSITION. CALL LIGHT PLACED WITHIN EASY REACH. WILL CONTINUE TO MONITOR.
[2018-03-11] MEDS: INSULIN LANTUS 100 UNITS/ML 10 ML VIAL SUBQ SCH (20:00)
[2018-03-11] MEDS: LATANOPROST 0.005% OP 2.5 ML BTL OP SCH (21:10)
--- NOTE | 2018-03-11 21:14 | NUR ---
BLOOD SUGAR EARLIER WAS 137. PT REFUSED HER LANTUS TONIGHT. SHE SAID NO INSULIN AT THIS TIME. DR. WASHINGTON, RESIDENT. MADE AWARE.
--- NOTE | 2018-03-11 22:15 | NUR ---
TURNED TO SIDES FOR COMFORT. NO C/O ANY SOB NOR PAIN NOTED.
[2018-03-12] VITALS: BP 112/68
[2018-03-12] MEDS: METOCLOPRAMIDE 10 MG TAB PO SCH ×5 (00:26→23:57)
[2018-03-12] MEDS: HYDRAGUARD CREAM TP SCH ×2 (00:27→15:59)
[2018-03-12] MEDS: Z-GUARD PASTE TP SCH ×2 (00:27→16:00)
--- NOTE | 2018-03-12 00:30 | NUR ---
PT SLEEPING WELL. WITH NO S/S OF ANY DISTRESS NOR PAIN NOTED.
--- NOTE | 2018-03-12 02:30 | NUR ---
PT IS ASLEEP. NO RESPIRATORY DISTRESS NOTED. O2 SAT 100%. WILL CONTINUE TO MONITOR.
[2018-03-12 03:55] VITALS: BP 109/71
--- NOTE | 2018-03-12 05:00 | NUR ---
PT CALLED AND NEED SUCTIONING. ABLE TO GET ONLY SCANTY WHITISH SECRETIONS. O2 SAT 99%-100%.
--- NOTE | 2018-03-12 05:21 | NUR ---
Patient awake and stable no resp distress noticed. Patient asking for breathing tx even though she her saturation is 99 and heart rate is 91 and patient is not wheezing and no shortness of breath or resp distress noticed. Patient is agitated and upset with RT for no significant reasons. RT gave patient PRN medication (duoneb) because to attempt to calm or relax patient from complaining. RT educated patient regarding medication and respiratory condition but patient is not compliant. RT has been checking on patient and she has been stable all night no vent changes made and patient was sleeping in the nightime and no resp distress noticed or shortness of breath noticed for entire shift.
[2018-03-12] MEDS: ALBUTEROL SULFATE/IPRATROPIU 3 ML SOL IH PRN ×3 (05:28→22:48)
[2018-03-12] MEDS: BLOOD GLUCOSE MONITORING 1 DEV DEV FS SCH ×4 (06:12→21:08)
--- NOTE | 2018-03-12 06:12 | NUR ---
BLOOD WAS DRAWN FOR THE CENTRAL LINE. WILL FOLLOW UP RESULTS. LATEST BLOOD SUGAR THIS AM 98. NO INSULIN NEEDED.
[2018-03-12 07:04] LABS: BASOPHILS % (AUTO) 0.7 % (0.0-2.0); EOSINOPHILS # (AUTO) 0.2 K/uL (0-0.4); EOSINOPHILS % (AUTO) 3.1 % (0.0-4.0); HEMATOCRIT 26.4 % (36-48); HEMOGLOBIN 8.6 g/dL (12.0-16.0); LYMPHOCYTES # (AUTO) 0.9 K/uL (2.5-16.5); LYMPHOCYTES % (AUTO) 16.4 % (20.5-51.1); MEAN CORPUSCULAR HEMOGLOBIN 31 pg (27-31); MEAN CORPUSCULAR HGB CONC 33 g/dL (33-37); MEAN CORPUSCULAR VOLUME 95.8 fL (80-94); MONOCYTES # (AUTO) 0.8 K/uL (0.8-1.0); MONOCYTES % (AUTO) 14.3 % (1.7-9.3); NEUTROPHILS # (AUTO) 3.7 K/uL (1.8-7.7); NEUTROPHILS % (AUTO) 65.5 % (42.2-75.2); PLATELET COUNT (AUTO) 197 K/uL (140-450); RED BLOOD CELL COUNT(AUTO) 2.76 MIL/uL (4.20-5.40); RED CELL DISTRIBUTION WIDTH 17.3 % (11.6-13.7); WHITE BLOOD COUNT (AUTO) 5.6 K/uL (4.8-10.8)
--- NOTE | 2018-03-12 07:14 | NUR ---
ENDORSED PT IN STABLE CONDITION TO AM NURSE FOR CONTINUITY OF CARE.
--- NOTE | 2018-03-12 07:20 | NUR ---
RECEIVED PT REPORT FROM WATER CONSERVATION SPECIALIST NURSE AT BEDSIDE. PATIENT AAOX3, AWAKE AND ALERT. TRACH TO VENT DEPENDENT FIO2 28%, TV 500, PEEP 8, RR 20. DENIES PAIN AT THIS TIME. CENTRAL LINE ON RT IJ TRIPLE LUMEN IN PLACE, BLUE PORT FLUSHES BUT NO BLOOD RETURN. THE OTHER 2 PORTS ARE PATENT, HAVE BLOOD RETURN AND ASYMPTOMATIC. RESPIRATIONS EVEN AND UNLABORED, NORTON CATHETER DRAINING YELLOW URINE. BREATH SOUNDS DIMINISHED. UPDATED BOARD. BED IN LOWEST POSITION. SAFETY AND ISOLATION PRECAUTION IN PLACE, CALL LIGHT WITHIN REACH. WILL CONTINUE TO MONITOR PATIENT.
[2018-03-12 07:28] LABS: CARBON DIOXIDE 24.6 mmol/L (21-32); CREATININE 1.2 mg/dL (0.6-1.3); POTASSIUM 4.6 mmol/L (3.5-5.1)
[2018-03-12 07:36] LABS: PHOSPHORUS 3.4 mg/dL (2.5-4.9)
[2018-03-12] MEDS: ALBUTEROL SULFATE/IPRATROPIU 3 ML SOL IH SCH ×3 (07:53→19:44)
[2018-03-12] MEDS: COLISTIMETHATE SODIUM 150 MG VIAL IH SCH ×2 (07:53→20:39)
[2018-03-12] MEDS ORDERED: WATER STERILE 10 ML MC ONE (07:55)
[2018-03-12 08:00] VITALS: BP 138/83
[2018-03-12] MEDS: CHLORHEXIDINE GLUCONATE 0.12% 473 ML LIQ MM SCH ×3 (08:15→21:09)
[2018-03-12] MEDS: FERROUS SULFATE 325 MG TABEC PO SCH ×2 (08:17→20:59)
[2018-03-12] MEDS: MAGNESIUM OXIDE 400 MG TAB PO SCH (08:18)
[2018-03-12] MEDS: CARVEDILOL 3.125 MG TAB PO SCH ×2 (08:18→20:59)
[2018-03-12] MEDS: LACTOBACILLUS RHAMNOSUS GG 1 EACH CAP PO SCH ×4 (08:18→16:20)
[2018-03-12] MEDS: DILTIAZEM 120 MG CAPER PO SCH (08:19)
[2018-03-12] MEDS: ASPIRIN 81 MG TAB.CHEW PO SCH (08:20)
[2018-03-12] MEDS: DOCUSATE SODIUM 100 MG GELCAP PO SCH ×2 (08:20→20:59)
[2018-03-12] MEDS: TRIAMCINOLONE 0.1% CRM 15 GM TUBE TP SCH (08:20)
--- NOTE | 2018-03-12 08:20 | NUR ---
PT REFUSED CHLORHEXIDINE MOUTH RINSE. PT STATED SHE ALREADY HAD ORAL CARE IN THE MORNING.
[2018-03-12] MEDS: MILD SOAP AND WATER TP SCH (08:21)
[2018-03-12] MEDS: APIXABAN 2.5 MG TAB PO SCH ×2 (08:32→21:05)
--- NOTE | 2018-03-12 10:17 | NUR ---
Information Technology Audit Manager Note: Per Leidy from [facility] , they don't have isolation female beds available in their subacute unit at this time, made aware. Per Landry from [facility] , they don't have isolation female beds available in their subacute unit at this time.
[2018-03-12 12:00] VITALS: BP 127/63
--- NOTE | 2018-03-12 12:06 | NUR ---
PT SUCTIONED OBTAINED SMALL AMOUNT OF THICK WHITE SECRETIONS, AIRWAY IS PATENT AND TRACH IS SECURE. PT IS AWAKE AND NOT IN ANY DISTRESS. WILL CONTINUE TO MONITOR.
--- NOTE | 2018-03-12 12:36 | NUR ---
03/12/18 RD FOLLOW UP COMPLETED PLEASE REFER TO NUTRITION PROGRESS NOTE UNDER CARE ACTIVITY FOR ESTIMATED NUTRITION NEEDS. RD RECOMMENDATIONS: 1. CONTINUE MECHANICAL SOFT, 60G CCHO DIET TOLERATED 2. RD TO FOLLOW-UP 3-5 DAYS, MODERATE RISK ADALID MLEÉNDEZ MBA, RD
[2018-03-12] MEDS: HYDROcodone/APAP 7.5/325 MG 1 TAB PO PRN ×2 (14:25→20:59)
[2018-03-12] MEDS: SODIUM PHOSPHATE 118 ML ENEM RC PRN (14:35)
--- NOTE | 2018-03-12 14:40 | NUR ---
PT C/O CONSTIPATION, FLEET ENEMA WAS GIVEN. PT TOLERATED WELL.
--- NOTE | 2018-03-12 15:30 | NUR ---
PT HAD BMX1, FORMED, GREENISH BLACK, MEDIUM AMOUNT. PT WAS CLEANED, ALL BED LINEN HAS CHANGED. PT HAD BED BATH, Z GUARD APPLIED TO BREAST AND ABD FOLDS. NORTON CATH CARE DONE. INTERDRY APPLIED FOR BREAST AND ABD FOLDS. PT TOLERATED WELL. CALLED RT FOR BREATHING TX PER PT'S REQUEST.
[2018-03-12 16:00] VITALS: BP 111/67
[2018-03-12] MEDS: ATORVASTATIN 20 MG TAB PO SCH (16:20)
--- NOTE | 2018-03-12 18:12 | NUR ---
PT REMAINS ON DOCUMENTED VENT SETTINGS TOLERATING WELL. TRACH REMAINS SECURE WITH A PATENT AIRWAY. VENT ALARMS REMAIN ON AND FUNCTIONING. PT IS AWAKE AND ALERT NOT IN ANY DISTRESS.
--- NOTE | 2018-03-12 19:20 | NUR ---
ENDORSED PT TO RADIOGRAPHER CARDIAC CATHETERIZATION RN. PT IS IN STABLE CONDITION.
--- NOTE | 2018-03-12 19:21 | NUR ---
RECEIVED BEDSIDE REPORT FROM DAY SHIFT NURSE KAITLIN RN, PT STABLE, NO DISTRESS NOTED, CENTRAL LINE TO R IJ TRIPLE LUMEN, PATENT INTACT, INFUSING NS @ TKO, PT STABLE, NO DISTRESS NOTED, PT ON VENT, NO SOB NOTED, NORTON IN PLACE, DRAINING YELLOW URINE, INITIAL ASSESSMENT DONE, ALL SAFETY PRECAUTION MET, WILL CONTINUE TO MONITOR.
[2018-03-12 20:00] VITALS: BP 114/68
[2018-03-12] MEDS: INSULIN LANTUS 100 UNITS/ML 10 ML VIAL SUBQ SCH (20:00)
--- NOTE | 2018-03-12 20:59 | NUR ---
DUE MEDICATION ADMINISTERED, PT STATED FEELING PAIN ON THE R LEG 6/10, PAIN MEDICATION NORCO GIVEN, PT STABLE, NO DISTRESS NOTED, CALL LIGHT WITHIN REACH, WILL CONTINUE TO MONITOR.
[2018-03-12] MEDS: LATANOPROST 0.005% OP 2.5 ML BTL OP SCH (21:09)
[2018-03-13] VITALS: BP 104/62
--- NOTE | 2018-03-13 | NUR ---
CENTRAL LINE DRESSING CHANGE WITH STERIL TECHNIQUE, PT TOLERATED WELL, NO DISTRESS NOTED, ASKED PT IF IT IS OK TO DO SKIN CARE , PT STATED NOT RIGHT NOW, SHE WANTS TO SLEEP AND SHE SAID MAYBE TOMORROW MORNING, CALL LIGHT WITHIN REACH, WILL CONTINUE TO MONITOR.
[2018-03-13] MEDS: HYDROcodone/APAP 7.5/325 MG 1 TAB PO PRN ×3 (00:58→17:17)
--- NOTE | 2018-03-13 00:58 | NUR ---
PT STATED FEELING PAIN 6/10, PAIN MEDICATION GIVEN, PT TOLERATED WELL, NO DISTRESS NOTED, CALL LIGHT WITHIN REACH, WILL CONTINUE TO MONITOR.
[2018-03-13] MEDS: HYDRAGUARD CREAM TP SCH ×2 (01:00→13:00)
[2018-03-13] MEDS: Z-GUARD PASTE TP SCH ×2 (01:00→13:00)
[2018-03-13 04:00] VITALS: BP 101/42
--- NOTE | 2018-03-13 04:10 | NUR ---
CHECKED ON PT, PT RESTING, NO DISTRESS NOTED, V/S TAKEN, WNL, PT STATED DOES NOT WANT HER SKIN CARE AT THIS MOMENT. CALL LIGHT WITHIN REACH, WILL CONTINUE TO MONITOR.
[2018-03-13] MEDS: BLOOD GLUCOSE MONITORING 1 DEV DEV FS SCH ×3 (06:14→16:50)
[2018-03-13] MEDS: METOCLOPRAMIDE 10 MG TAB PO SCH ×3 (06:14→17:13)
--- NOTE | 2018-03-13 06:14 | NUR ---
DUE MEDICATION ADMINISTERED, PT TOLERATED WELL, NO DISTRESS NOTED, CALL LIGHT WITHIN REACH, WILL CONTINUE TO MONITOR.
--- NOTE | 2018-03-13 07:30 | NUR ---
RECEIVED PT REPORT FROM DIE HOLDER NURSE AT BEDSIDE. PATIENT AAOX3, AWAKE AND ALERT. TRACH TO VENT DEPENDENT FIO2 28%, TV 500, PEEP 8, RR 20. C/O GENERALIZED PAIN 6/10, WILL ADMINISTER NORCO PER REQUEST. CENTRAL LINE ON RT IJ TRIPLE LUMEN IN PLACE, BLUE PORT FLUSHES BUT NO BLOOD RETURN. THE OTHER 2 PORTS ARE PATENT, HAVE BLOOD RETURN AND ASYMPTOMATIC. RESPIRATIONS EVEN AND UNLABORED, NORTON CATHETER DRAINING YELLOW URINE. BREATH SOUNDS DIMINISHED. UPDATED BOARD. BED IN LOWEST POSITION. SAFETY AND ISOLATION PRECAUTION IN PLACE, CALL LIGHT WITHIN REACH. WILL CONTINUE TO MONITOR PATIENT.
--- NOTE | 2018-03-13 07:30 | NUR ---
ENDORSED PT TO DAY SHIFT NURSE KAITLIN RN, PT STABLE, NO DISTRESS NOTED
[2018-03-13 07:33] LABS: BASOPHILS # (AUTO) 0.1 K/uL (0.00-0.22); BASOPHILS % (AUTO) 0.9 % (0.0-2.0); EOSINOPHILS # (AUTO) 0.2 K/uL (0-0.4); EOSINOPHILS % (AUTO) 3.1 % (0.0-4.0); HEMATOCRIT 24.4 % (36-48); LYMPHOCYTES # (AUTO) 1.3 K/uL (2.5-16.5); LYMPHOCYTES % (AUTO) 21.2 % (20.5-51.1); MEAN CORPUSCULAR HEMOGLOBIN 31 pg (27-31); MEAN CORPUSCULAR HGB CONC 33 g/dL (33-37); MEAN CORPUSCULAR VOLUME 95.6 fL (80-94); MONOCYTES # (AUTO) 0.8 K/uL (0.8-1.0); MONOCYTES % (AUTO) 13.3 % (1.7-9.3); NEUTROPHILS # (AUTO) 3.7 K/uL (1.8-7.7); NEUTROPHILS % (AUTO) 61.5 % (42.2-75.2); PLATELET COUNT (AUTO) 200 K/uL (140-450); RED BLOOD CELL COUNT(AUTO) 2.55 MIL/uL (4.20-5.40); RED CELL DISTRIBUTION WIDTH 17.3 % (11.6-13.7); WHITE BLOOD COUNT (AUTO) 6.1 K/uL (4.8-10.8)
[2018-03-13] MEDS: COLISTIMETHATE SODIUM 150 MG VIAL IH SCH (07:48)
[2018-03-13] MEDS: ALBUTEROL SULFATE/IPRATROPIU 3 ML SOL IH SCH ×2 (07:48→13:49)
[2018-03-13 07:49] VITALS: BP 120/56
--- NOTE | 2018-03-13 07:49 | NUR ---
PATIENT IS ALERT AND ORIENTED. COLY-MYCIN AND DUONEB ADMINISTERED WITHOUT ADVERSE REACTIONS. STRATEGIC PARTNERSHIP SPECIALIST BALLOON DEFLATED DURING MEAL AND REINFLATED TO 20 CM H2O. AFTER TROUBLESHOOTING OTHER POSSIBLITIES, EXPIRATORY FILTER WAS CHANGED AFTER COLY-MYCIN BECAUSE "CIRCUIT OCCLUSION" ALARM CONTINUED SOUNDING. THIS SUCCESSFULLY RESOLVED PROBLEM. TRACH PATENT AND SECURE. ALARMS ON AND AUDIBLE. VENT PLUGGED INTO RED OUTLET. AMBU-BAG ACCESSIBLE AT BEDSIDE.
[2018-03-13 08:00] VITALS: BP 120/56
[2018-03-13] MEDS: CHLORHEXIDINE GLUCONATE 0.12% 473 ML LIQ MM SCH (08:36)
[2018-03-13] MEDS: DILTIAZEM 120 MG CAPER PO SCH (08:38)
[2018-03-13] MEDS: ASPIRIN 81 MG TAB.CHEW PO SCH (08:39)
[2018-03-13] MEDS: LACTOBACILLUS RHAMNOSUS GG 1 EACH CAP PO SCH ×3 (08:39→17:14)
[2018-03-13] MEDS: CARVEDILOL 3.125 MG TAB PO SCH (08:39)
[2018-03-13] MEDS: FERROUS SULFATE 325 MG TABEC PO SCH (08:39)
[2018-03-13] MEDS: MAGNESIUM OXIDE 400 MG TAB PO SCH (08:39)
[2018-03-13] MEDS: DOCUSATE SODIUM 100 MG GELCAP PO SCH (08:40)
[2018-03-13 08:43] LABS: ANION GAP 8.8 (8-16); CARBON DIOXIDE 25.6 mmol/L (21-32); CREATININE 1.2 mg/dL (0.6-1.3); POTASSIUM 4.4 mmol/L (3.5-5.1)
[2018-03-13 08:47] LABS: MAGNESIUM 2.1 mg/dL (1.8-2.4); PHOSPHORUS 3.3 mg/dL (2.5-4.9)
[2018-03-13] MEDS: APIXABAN 2.5 MG TAB PO SCH (08:47)
[2018-03-13] MEDS: MILD SOAP AND WATER TP SCH (08:48)
[2018-03-13] MEDS: TRIAMCINOLONE 0.1% CRM 15 GM TUBE TP SCH (08:48)
[2018-03-13 12:00] VITALS: BP 107/66
--- NOTE | 2018-03-13 13:12 | NUR ---
ARRANGED TRANSPORT WITH [facility] SCHEDULE FOR WILL CALL
[2018-03-13 16:00] VITALS: BP 114/68
[2018-03-13] MEDS ORDERED: DILT-135 PO (16:13)
--- NOTE | 2018-03-13 16:21 | NUR ---
1548 SPOKE WITH WILVER AT [facility] AND PT CAN GO TO ROOM 121B. STATED THEY ARE WAITING FOR A BARIATRIC MATTRESS FOR PT AT THIS TIME AND WILL CALL THE NURSING UNIT WHEN THEY HAVE AN ETA FOR THE MATTRESS. [facility] PHONE [phone]
--- NOTE | 2018-03-13 16:44 | NUR ---
CALLED [facility] TO ARRANGE THE TRANSPORT WITH BARIATRIC BED THE AVAILABLE TIME IS 0300 AM NOTIFIED ANANT MADRIGAL.
[2018-03-13] MEDS ORDERED: CARV3.12 PO (16:50)
[2018-03-13] MEDS: INSULIN LISPRO SLIDING SCALE 100 UNITS/ML VIAL SUBQ PRN ×2 (16:50→17:23)
--- NOTE | 2018-03-13 16:50 | NUR ---
PT REFUSED Z GUARD AND HYDRAGUARD FOR APPLYING TO UNDER ABD AND BREAST FOLD.
--- NOTE | 2018-03-13 16:57 | NUR ---
Business Investor Note: Per , isolation is colonized, he documented this in progress note, I informed Jose from [facility] of this and also 's progress note which indicate isolation is colonized. Per Jose, patient may go to room 121B, accepting physician is . Jose stated has ordered a low air bariatric bed for patient and will be delivered to their facility in about 45 minutes. Jose requested for patient to be transfer to their facility after 7pm today, charge nurse Mary made aware. Per Qasim from [facility] , they aren't able to accept patient, he stated patient was at their facility previously and they had behavioral issues with her, patients sister Kim made aware of this. Per patient's sister Kim Arredondo , she is in agreement with patient returning to [facility] if none of the subacute facilities contacted are able to accept. Kim is aware patient will be transfer today to [facility].
--- NOTE | 2018-03-13 17:04 | NUR ---
2 TRANSPORTER CAME FROM [facility] TO CHECK THE PATIENT IF SHE FITS ON THEIR BED BUT THEY DECIDED PATIENT NEEDS BARIATRIC BED STILL GOLF BALL INSPECTOR TIME IS 0300 AM
[2018-03-13] MEDS: ALBUTEROL SULFATE/IPRATROPIU 3 ML SOL IH PRN (17:07)
[2018-03-13] MEDS: ATORVASTATIN 20 MG TAB PO SCH (17:13)
--- NOTE | 2018-03-13 18:08 | NUR ---
CALLED ABIGAIL BLACKWOOD, REPORT GIVEN TO [place]. PT GOING TO ROOM 121B, UNDER DR DILL.
--- NOTE | 2018-03-13 18:40 | NUR ---
PT DISCHARGED WITH [facility]. TELE REMOVED. NORTON CATH REMOVED. PT TOLERATED WELL.DISCHARGE INSTRUCTION AND MEDICATION TEACHING GIVEN. PT VERBALIZED UNDERSTANDING. PT HAS SIGNED ALL HER DISCHARGE PAPER WORK.
== END 2018-03-13 18:55 | DRG 870 ==
LOC: MED 18:04 → MIC 22:15 → MTU 02-23 15:35
PROVIDERS: ADMIT General Practice; ATTEND General Practice
PROC: 5A1955Z Respiratory Ventilation, Greater than 96 Consecutive Hours (ICD-10-PCS; principal; 2018-02-21)
PROC: 02HV33Z Insertion of Infusion Device into Superior Vena Cava, Percutaneous Approach (ICD-10-PCS; 2018-02-22)
PROC: B548ZZA Ultrasonography of Superior Vena Cava, Guidance (ICD-10-PCS; 2018-02-22)
DX: A41.9 Sepsis, unspecified organism (principal); I50.43 Acute on chronic combined systolic (congestive) and diastolic (congestive) heart failure; J69.0 Pneumonitis due to inhalation of food and vomit; J96.21 Acute and chronic respiratory failure with hypoxia; N17.0 Acute kidney failure with tubular necrosis; J96.22 Acute and chronic respiratory failure with hypercapnia; E43 Unspecified severe protein-calorie malnutrition; N39.0 Urinary tract infection, site not specified; E87.1 Hypo-osmolality and hyponatremia; I13.0 Hypertensive heart and chronic kidney disease with heart failure and stage 1 through stage 4 chronic kidney disease, or unspecified chronic kidney disease; D68.59 Other primary thrombophilia; K56.7 Ileus, unspecified; E66.2 Morbid (severe) obesity with alveolar hypoventilation; Z68.44 Body mass index [BMI] 60.0-69.9, adult; Z99.11 Dependence on respirator [ventilator] status; R65.20 Severe sepsis without septic shock; E11.65 Type 2 diabetes mellitus with hyperglycemia; D64.9 Anemia, unspecified; E87.5 Hyperkalemia; E11.51 Type 2 diabetes mellitus with diabetic peripheral angiopathy without gangrene; R13.10 Dysphagia, unspecified; I48.91 Unspecified atrial fibrillation; E83.39 Other disorders of phosphorus metabolism; E87.8 Other disorders of electrolyte and fluid balance, not elsewhere classified; B96.5 Pseudomonas (aeruginosa) (mallei) (pseudomallei) as the cause of diseases classified elsewhere; Z93.0 Tracheostomy status; Z22.322 Carrier or suspected carrier of Methicillin resistant Staphylococcus aureus
CPT/HCPCS: 36415; 36600; 51702; 71045; 74018; 80048; 80053; 81001; 82150; 82803; 82948; 83036; 83605; 83690; 83735; 83880; 84100; 84300; 84439; 84443; 84484; 85025; 85610; 85730; 87040; 87070; 87081; 87086; 87186; 87205; 89220; 92610; 93005; 93925; 93970; 94002; 94003; 94640; 96365; 96367; 96375; 99285; C9113; J0770; J1100; J1170; J1580; J1642; J1644; J1650; J1815; J1940; J1956; J2060; J2270; J2405; J2543; J2920; J2930; J3490; J7030; J7042; J7060; J7613; J7620; J7644; J8597; Q0092

== ENCOUNTER 2018-06-02 21:59 | Inpatient (IN) | payer OTHER, MEDICAID ==
[~2018-06-02] VITALS: Ht 147.3 cm; Wt 144.2 kg
[~2018-06-02 21:59] MED LIST changes: -ACET-2619 PO; +APIX5TAB PO; -BECL0.089 INH; +CARV3.12 PO; +CHLO480L1 PO; +DEXT1DRO5 OP; +DILT-135 PO; -DOCU-299 PO; -DOCU1TAB PO; -EPOE10002 SUBQ; -ESCI5TAB PO; -ESOM40EC PO; -FOLI1TAB19 PO; -FURO-570 PO; -GLU1I IM; +KEN.1C TP; +LEVEMIR SUBQ; +LINA5TAB PO; -LISI5TAB18 PO; -METO5SOL19 PO; -NOVN SUBQ; -POLY15SO48 OP; -SIMV20TA1 PO; -VIC PO; +XALOS OP
[2018-06-02 22:00] VITALS: BP 142/78
[2018-06-02 22:25] VITALS: BP 142/78
[2018-06-02] MEDS ORDERED: MAG SULF 2000 MG/WATER PREMIX 50 ML IV ONE (22:25)
[2018-06-02] MEDS ORDERED: methylPREDNISolone SS 125 MG in WATER STERILE 2 ML IV ONE (22:25)
[2018-06-02] MEDS ORDERED: IPRATROPIUM 0.02% 0.5 MG/2.5 ML NEBU INH ONE (22:25)
[2018-06-02] MEDS ORDERED: ALBUTEROL 0.083% 2.5 MG/3 ML NEBU INH ONE (22:25)
[2018-06-02] MEDS ORDERED: FURO-572 PO (22:33)
[2018-06-02 23:00] LABS: BASOPHILS # (AUTO) 0.1 K/uL (0.00-0.22); EOSINOPHILS # (AUTO) 0.2 K/uL (0-0.4); HEMOGLOBIN 8.7 g/dL (12.0-16.0); LYMPHOCYTES # (AUTO) 1.2 K/uL (2.5-16.5); WHITE BLOOD COUNT (AUTO) 8.6 K/uL (4.8-10.8)
[2018-06-02 23:08] LABS: BASOPHILS % (AUTO) 0.7 % (0.0-2.0); EOSINOPHILS % (AUTO) 2.9 % (0.0-4.0); HEMATOCRIT 27.3 % (36-48); LYMPHOCYTES % (AUTO) 14.1 % (20.5-51.1); MEAN CORPUSCULAR HEMOGLOBIN 29 pg (27-31); MEAN CORPUSCULAR HGB CONC 32 g/dL (33-37); MEAN CORPUSCULAR VOLUME 89.6 fL (80-94); MONOCYTES # (AUTO) 0.7 K/uL (0.8-1.0); MONOCYTES % (AUTO) 7.7 % (1.7-9.3); NEUTROPHILS # (AUTO) 6.4 K/uL (1.8-7.7); NEUTROPHILS % (AUTO) 74.6 % (42.2-75.2); PLATELET COUNT (AUTO) 276 K/uL (140-450); RED BLOOD CELL COUNT(AUTO) 3.04 MIL/uL (4.20-5.40); RED CELL DISTRIBUTION WIDTH 15.6 % (11.6-13.7)
[2018-06-02 23:16] LABS: ANION GAP 11.4 (8-16); CARBON DIOXIDE 28.5 mmol/L (21-32); POTASSIUM 3.9 mmol/L (3.5-5.1)
[2018-06-02 23:22] LABS: TOTAL BILIRUBIN 0.2 mg/dL (0.0-1.0)
[2018-06-03] MEDS ORDERED: ALBUTEROL SULFATE/IPRATROPIU 3 ML SOL IH ONE
[2018-06-03] MEDS ORDERED: ACETAMINOPHEN 325 MG TAB PO PRN (00:20)
[2018-06-03] MEDS ORDERED: DOCUSATE SODIUM 100 MG GELCAP PO PRN (00:20)
[2018-06-03] MEDS ORDERED: ONDANSETRON 4 MG/2 ML VIAL IM/IVP PRN (00:20)
[2018-06-03 00:55] LABS: FREE T4 (FREE THYROXINE) 1.32 ng/dL (0.76-1.46); MAGNESIUM 1.9 mg/dL (1.8-2.4); PHOSPHORUS 3.6 mg/dL (2.5-4.9); THYROID STIMULATING HORMONE 3.68 uIU/mL (0.34-3.74)
[2018-06-03 01:32] VITALS: BP 136/78
[2018-06-03] MEDS ORDERED: LEVOFLOXACIN 750 MG/D5W PREMIX 150 ML IV ONE (01:40)
[2018-06-03] MEDS ORDERED: VANCOMYCIN 1,000 MG in DEXTROSE 5% 250 ML IV ONE (01:40)
[2018-06-03] MEDS ORDERED: diphenhydrAMINE 50 MG/ML VIAL IVP SCH (02:00)
[2018-06-03] MEDS ORDERED: MORPHINE SULFATE 4 MG/ML SYR IVP SCH (02:00)
[2018-06-03] MEDS ORDERED: VANCOMYCIN 1,000 MG VIAL ONE (02:06)
[2018-06-03] MEDS: ALBUTEROL SULFATE/IPRATROPIU 3 ML SOL IH PRN ×3 (03:34→17:26)
[2018-06-03 04:36] LABS: APPEARANCE,URINE CLEAR (CLEAR); BILIRUBIN,URINE NEGATIVE (NEGATIVE); BLOOD, URINE NEGATIVE (NEGATIVE); COLOR,URINE YELLOW (YELLOW); LEUKOCYTE ESTERASE ,URINE TRACE (NEGATIVE); NITRITE, URINE POSITIVE (NEGATIVE); PH,URINE 6.5 (5.0-9.0); UGLUCOSE NEGATIVE (NEGATIVE)
[2018-06-03 04:44] LABS: BARBITURATE, URINE NEG. ng/ml (NEG <=200); BENZODIAZEPINE, URINE NEG. ng/mL (NEG <=200); CANNABINOID, URINE NEG. ng/mL (NEG <=50); COCAINE, URINE NEG. ng/mL (NEG <=300); OPIATE, URINE NEG. ng/mL (NEG <=2000); PHENCYCLIDINE SCREEN,URINE NEG. ng/mL (NEG <=25)
[2018-06-03 04:47] LABS: RBC,URINE 0-5 (RARE) /HPF (0-5)
[2018-06-03] MEDS: DEXT 5% /NACL 0.9% 1,000 ML IV SCH ×2 (05:38→23:38)
[2018-06-03] MEDS: methylPREDNISolone SS 125 MG/2 ML VIAL IVP SCH ×2 (05:39→12:40)
[2018-06-03] MEDS: MORPHINE SULFATE 4 MG/ML SYR IVP PRN ×3 (05:39→22:07)
[2018-06-03] MEDS: BLOOD GLUCOSE MONITORING 1 DEV DEV FS SCH ×4 (05:39→21:48)
[2018-06-03 05:47] VITALS: BP 121/60
[2018-06-03] MEDS: INSULIN LISPRO SLIDING SCALE 100 UNITS/ML VIAL SUBQ PRN ×4 (05:55→21:53)
[2018-06-03] MEDS ORDERED: INSULIN LANTUS 100 UNITS/ML 10 ML VIAL SUBQ SCH ×2 (06:00→09:00)
[2018-06-03] MEDS ORDERED: COLISTIMETHATE SODIUM 150 MG VIAL IH SCH (07:00)
[2018-06-03] MEDS ORDERED: ALBUTEROL SULFATE/IPRATROPIU 3 ML SOL IH SCH (07:00)
[2018-06-03 08:00] VITALS: BP 137/77
[2018-06-03] MEDS: ASPIRIN 81 MG TAB.CHEW PO SCH (08:54)
[2018-06-03] MEDS: DILTIAZEM 120 MG CAPER PO SCH (08:55)
[2018-06-03] MEDS: CARVEDILOL 3.125 MG TAB PO SCH ×2 (08:56→21:45)
[2018-06-03] MEDS: FERROUS SULFATE 325 MG TABEC PO SCH ×2 (08:58→21:44)
[2018-06-03] MEDS: APIXABAN 2.5 MG TAB PO SCH ×2 (08:58→21:44)
[2018-06-03] MEDS: FUROSEMIDE 20 MG TAB PO SCH ×2 (08:59→21:45)
[2018-06-03 12:00] VITALS: BP 132/80
[2018-06-03] MEDS: ALBUTEROL SULFATE/IPRATROPIU 3 ML SOL IH SCH ×3 (15:34→22:20)
[2018-06-03 16:00] VITALS: BP 119/66
[2018-06-03] MEDS: SIMETHICONE 80 MG TAB.CHEW PO SCH (17:12)
[2018-06-03] MEDS: LATANOPROST 0.005% OP 2.5 ML BTL OP SCH (21:00)
[2018-06-03 21:38] VITALS: BP 132/65
[2018-06-03] MEDS: methylPREDNISolone SS 40 MG/ML VIAL IVP SCH (21:43)
[2018-06-03] MEDS: INSULIN LANTUS 100 UNITS/ML 10 ML VIAL SUBQ SCH (21:51)
[2018-06-03] MEDS ORDERED: TOBRAMYCIN PER PHARMACY MC PRN ×2 (22:15→22:20)
[2018-06-03] MEDS: PIPER/TAZO 3.375GM/D5W PREMIX 50 ML IV SCH (23:40)
[2018-06-03] MEDS ORDERED: PIPERACILLIN/TAZOBACTAM 3.375 GM VIAL IV ONE (23:41)
[2018-06-04] VITALS (8 sets, daily range): BP systolic 109–118; BP diastolic 49–72
[2018-06-04] MEDS ORDERED: DEXTROSE 5% IV ONE ×2 (02:00→17:30)
[2018-06-04] MEDS ORDERED: TOBRAMYCIN IV ONE ×2 (02:00→17:30)
[2018-06-04] MEDS ORDERED: TOBRAMYCIN 80 MG/2 ML VIAL ONE (02:41)
[2018-06-04] MEDS: ALBUTEROL SULFATE/IPRATROPIU 3 ML SOL IH SCH ×6 (03:08→23:26)
[2018-06-04] MEDS: methylPREDNISolone SS 40 MG/ML VIAL IVP SCH ×2 (05:05→12:37)
[2018-06-04] MEDS: PIPER/TAZO 3.375GM/D5W PREMIX 50 ML IV SCH ×4 (05:05→23:31)
[2018-06-04] MEDS ORDERED: PIPERACILLIN/TAZOBACTAM 3.375 GM VIAL IV ONE (05:07)
[2018-06-04] MEDS: BLOOD GLUCOSE MONITORING 1 DEV DEV FS SCH ×4 (05:43→20:41)
[2018-06-04] MEDS: INSULIN LISPRO SLIDING SCALE 100 UNITS/ML VIAL SUBQ PRN ×4 (05:46→20:46)
[2018-06-04 07:37] LABS: EOSINOPHILS % (AUTO) 0.1 % (0.0-4.0); HEMATOCRIT 27.8 % (36-48); HEMOGLOBIN 8.7 g/dL (12.0-16.0); LYMPHOCYTES # (AUTO) 0.6 K/uL (2.5-16.5); MEAN CORPUSCULAR HEMOGLOBIN 28 pg (27-31); MEAN CORPUSCULAR HGB CONC 31 g/dL (33-37); MEAN CORPUSCULAR VOLUME 89.3 fL (80-94); MONOCYTES # (AUTO) 0.3 K/uL (0.8-1.0); MONOCYTES % (AUTO) 2.9 % (1.7-9.3); NEUTROPHILS # (AUTO) 8.9 K/uL (1.8-7.7); PLATELET COUNT (AUTO) 264 K/uL (140-450); RED BLOOD CELL COUNT(AUTO) 3.11 MIL/uL (4.20-5.40); RED CELL DISTRIBUTION WIDTH 15.5 % (11.6-13.7); WHITE BLOOD COUNT (AUTO) 9.7 K/uL (4.8-10.8)
[2018-06-04 07:48] LABS: ANION GAP 9.4 (8-16); CARBON DIOXIDE 29.1 mmol/L (21-32); CREATININE 1.2 mg/dL (0.6-1.3); POTASSIUM 3.5 mmol/L (3.5-5.1)
[2018-06-04 08:14] LABS: MAGNESIUM 2.1 mg/dL (1.8-2.4); PHOSPHORUS 3.7 mg/dL (2.5-4.9)
[2018-06-04] MEDS: LACTOBACILLUS RHAMNOSUS GG 1 EACH CAP PO SCH (08:15)
[2018-06-04] MEDS: FUROSEMIDE 20 MG TAB PO SCH ×2 (08:16→20:41)
[2018-06-04] MEDS: DILTIAZEM 120 MG CAPER PO SCH (08:16)
[2018-06-04] MEDS: SIMETHICONE 80 MG TAB.CHEW PO SCH ×3 (08:16→17:50)
[2018-06-04] MEDS: ASPIRIN 81 MG TAB.CHEW PO SCH (08:17)
[2018-06-04] MEDS: FERROUS SULFATE 325 MG TABEC PO SCH ×2 (08:18→20:43)
[2018-06-04] MEDS: CARVEDILOL 3.125 MG TAB PO SCH ×2 (08:20→20:41)
[2018-06-04] MEDS: APIXABAN 2.5 MG TAB PO SCH ×2 (08:20→20:43)
[2018-06-04] MEDS ORDERED: MAGNESIUM HYDROXIDE 2400 MG/30 ML UDC PO PRN ×2 (09:05)
[2018-06-04] MEDS ORDERED: SODIUM PHOSPHATE 118 ML ENEM RC PRN (09:05)
[2018-06-04] MEDS ORDERED: DOCUSATE SOD/SENNA 50/8.6 MG 1 TAB PO PRN (09:05)
[2018-06-04] MEDS: BISACODYL 10 MG SUPP RC PRN (10:20)
[2018-06-04] MEDS: MORPHINE SULFATE 4 MG/ML SYR IVP PRN (10:56)
[2018-06-04] MEDS: METOCLOPRAMIDE 10 MG TAB PO SCH ×2 (10:56→17:50)
[2018-06-04] MEDS: POTASSIUM CHL 20 MEQ/NACL 0.9% 1,000 ML IV SCH (14:30)
[2018-06-04] MEDS ORDERED: guaiFENesin/CODEINE 100/10MG 5 ML UDC PO PRN (16:20)
[2018-06-04] MEDS: DOCUSATE SODIUM 100 MG GELCAP PO PRN (17:50)
[2018-06-04] MEDS: INSULIN LANTUS 100 UNITS/ML 10 ML VIAL SUBQ SCH (20:44)
[2018-06-04] MEDS: LATANOPROST 0.005% OP 2.5 ML BTL OP SCH (20:56)
[2018-06-05] MEDS: ALBUTEROL SULFATE/IPRATROPIU 3 ML SOL IH SCH ×6 (02:05→22:52)
[2018-06-05 04:52] VITALS: BP 116/72
[2018-06-05] MEDS: PIPER/TAZO 3.375GM/D5W PREMIX 50 ML IV SCH ×4 (05:57→23:33)
[2018-06-05] MEDS: METOCLOPRAMIDE 10 MG TAB PO SCH ×3 (05:57→17:17)
[2018-06-05] MEDS: BLOOD GLUCOSE MONITORING 1 DEV DEV FS SCH ×4 (06:06→20:22)
[2018-06-05] MEDS: INSULIN LISPRO SLIDING SCALE 100 UNITS/ML VIAL SUBQ PRN ×3 (06:08→17:24)
[2018-06-05 07:37] LABS: HEMATOCRIT 29.2 % (36-48); LYMPHOCYTES # (AUTO) 0.6 K/uL (2.5-16.5); LYMPHOCYTES % (AUTO) 5.6 % (20.5-51.1); MEAN CORPUSCULAR HEMOGLOBIN 28 pg (27-31); MEAN CORPUSCULAR HGB CONC 31 g/dL (33-37); MEAN CORPUSCULAR VOLUME 90.4 fL (80-94); MONOCYTES # (AUTO) 0.4 K/uL (0.8-1.0); MONOCYTES % (AUTO) 3.8 % (1.7-9.3); NEUTROPHILS # (AUTO) 10.4 K/uL (1.8-7.7); NEUTROPHILS % (AUTO) 90.6 % (42.2-75.2); PLATELET COUNT (AUTO) 299 K/uL (140-450); RED BLOOD CELL COUNT(AUTO) 3.23 MIL/uL (4.20-5.40); RED CELL DISTRIBUTION WIDTH 15.9 % (11.6-13.7); WHITE BLOOD COUNT (AUTO) 11.5 K/uL (4.8-10.8)
[2018-06-05 08:00] VITALS: BP 131/75
[2018-06-05 08:00] LABS: ANION GAP 12.9 (8-16); CARBON DIOXIDE 29.1 mmol/L (21-32); CREATININE 1.3 mg/dL (0.6-1.3)
[2018-06-05] MEDS: DILTIAZEM 120 MG CAPER PO SCH (08:33)
[2018-06-05] MEDS: FUROSEMIDE 20 MG TAB PO SCH ×2 (08:33→20:25)
[2018-06-05] MEDS: SIMETHICONE 80 MG TAB.CHEW PO SCH ×3 (08:34→17:17)
[2018-06-05] MEDS: DOCUSATE SODIUM 100 MG GELCAP PO PRN (08:34)
[2018-06-05] MEDS: FERROUS SULFATE 325 MG TABEC PO SCH ×2 (08:34→20:25)
[2018-06-05] MEDS: ASPIRIN 81 MG TAB.CHEW PO SCH (08:34)
[2018-06-05] MEDS: MAGNESIUM OXIDE 400 MG TAB PO SCH (08:34)
[2018-06-05] MEDS: APIXABAN 2.5 MG TAB PO SCH ×2 (08:34→20:24)
[2018-06-05] MEDS: LACTOBACILLUS RHAMNOSUS GG 1 EACH CAP PO SCH (08:35)
[2018-06-05] MEDS: CARVEDILOL 3.125 MG TAB PO SCH ×2 (08:36→20:25)
[2018-06-05] MEDS: MORPHINE SULFATE 4 MG/ML SYR IVP PRN ×4 (08:44→23:27)
[2018-06-05 09:18] LABS: T4 (THYROXINE) 8.5 ug/dL (4.5-12.0)
[2018-06-05 09:34] LABS: MAGNESIUM 2.6 mg/dL (1.8-2.4); PHOSPHORUS 3.3 mg/dL (2.5-4.9)
[2018-06-05] MEDS: POTASSIUM CHL 20 MEQ/NACL 0.9% 1,000 ML IV SCH (10:30)
[2018-06-05 12:00] VITALS: BP 123/78
[2018-06-05] MEDS ORDERED: SENNA 8.6 MG TAB PO SCH (12:49)
[2018-06-05] MEDS ORDERED: SODIUM PHOSPHATE 118 ML ENEM RC SCH (13:00)
[2018-06-05] MEDS ORDERED: DEXTROSE 5% IV SCH ×2 (14:00→17:00)
[2018-06-05] MEDS ORDERED: TOBRAMYCIN IV SCH ×2 (14:00→17:00)
[2018-06-05] MEDS: NACL 0.9% 1,000 ML IV SCH (14:47)
[2018-06-05 16:00] VITALS: BP 120/72
[2018-06-05] MEDS: ALBUTEROL SULFATE/IPRATROPIU 3 ML SOL IH PRN (17:14)
[2018-06-05] MEDS: HYDROcodone/APAP 7.5/325 MG 1 TAB PO PRN (17:46)
[2018-06-05 19:35] VITALS: BP 139/68
[2018-06-05 20:00] VITALS: BP 139/68
[2018-06-05] MEDS: INSULIN LANTUS 100 UNITS/ML 10 ML VIAL SUBQ SCH (20:08)
[2018-06-05] MEDS: DOCUSATE SODIUM 100 MG GELCAP PO SCH (20:23)
[2018-06-05] MEDS: LATANOPROST 0.005% OP 2.5 ML BTL OP SCH (21:56)
[2018-06-06] VITALS (7 sets, daily range): BP systolic 96–168; BP diastolic 55–80
[2018-06-06] MEDS: ALBUTEROL SULFATE/IPRATROPIU 3 ML SOL IH SCH ×6 (02:37→23:11)
[2018-06-06] MEDS ORDERED: TOBRAMYCIN IV SCH (03:00)
[2018-06-06] MEDS ORDERED: DEXTROSE 5% IV SCH (03:00)
[2018-06-06] MEDS: NACL 0.9% 1,000 ML IV SCH ×3 (05:20→23:36)
[2018-06-06] MEDS: PIPER/TAZO 3.375GM/D5W PREMIX 50 ML IV SCH ×3 (06:05→17:43)
[2018-06-06] MEDS: BLOOD GLUCOSE MONITORING 1 DEV DEV FS SCH ×4 (06:06→20:48)
[2018-06-06] MEDS: INSULIN LISPRO SLIDING SCALE 100 UNITS/ML VIAL SUBQ PRN ×2 (06:11→12:04)
[2018-06-06] MEDS: HYDROcodone/APAP 7.5/325 MG 1 TAB PO PRN (06:13)
[2018-06-06] MEDS: METOCLOPRAMIDE 10 MG TAB PO SCH ×3 (06:35→17:41)
[2018-06-06] MEDS ORDERED: LORazepam 1 MG TAB PO SCH (07:38)
[2018-06-06] MEDS: FERROUS SULFATE 325 MG TABEC PO SCH ×2 (08:03→20:57)
[2018-06-06] MEDS: LACTOBACILLUS RHAMNOSUS GG 1 EACH CAP PO SCH (08:04)
[2018-06-06] MEDS: ATORVASTATIN 20 MG TAB PO SCH (08:04)
[2018-06-06] MEDS: DILTIAZEM 120 MG CAPER PO SCH (08:04)
[2018-06-06] MEDS: ASPIRIN 81 MG TAB.CHEW PO SCH (08:04)
[2018-06-06] MEDS: DOCUSATE SODIUM 100 MG GELCAP PO SCH ×3 (08:04→21:00)
[2018-06-06] MEDS: MAGNESIUM OXIDE 400 MG TAB PO SCH (08:04)
[2018-06-06] MEDS: FUROSEMIDE 20 MG TAB PO SCH ×2 (08:05→20:58)
[2018-06-06] MEDS: SENNA 8.6 MG TAB PO SCH (08:05)
[2018-06-06] MEDS: SIMETHICONE 80 MG TAB.CHEW PO SCH ×3 (08:05→17:40)
[2018-06-06] MEDS: CARVEDILOL 3.125 MG TAB PO SCH ×3 (08:05→21:00)
[2018-06-06] MEDS ORDERED: LORazepam 2 MG/ML VIAL IVP SCH (08:19)
[2018-06-06] MEDS ORDERED: DILTIAZEM 25 MG/5 ML VIAL IVP SCH (09:32)
[2018-06-06 11:15] LABS: HEMATOCRIT 33.9 % (36-48); HEMOGLOBIN 10.3 g/dL (12.0-16.0); MEAN CORPUSCULAR HEMOGLOBIN 28 pg (27-31); MEAN CORPUSCULAR HGB CONC 30 g/dL (33-37); MEAN CORPUSCULAR VOLUME 91.3 fL (80-94); PLATELET COUNT (AUTO) 447 K/uL (140-450); RED BLOOD CELL COUNT(AUTO) 3.72 MIL/uL (4.20-5.40); RED CELL DISTRIBUTION WIDTH 16.2 % (11.6-13.7); WHITE BLOOD COUNT (AUTO) 24.6 K/uL (4.8-10.8)
[2018-06-06 11:29] LABS: ANION GAP 14.6 (8-16); CARBON DIOXIDE 29.3 mmol/L (21-32); CREATININE 1.6 mg/dL (0.6-1.3); POTASSIUM 3.9 mmol/L (3.5-5.1)
[2018-06-06 11:36] LABS: MAGNESIUM 2.6 mg/dL (1.8-2.4); PHOSPHORUS 4.9 mg/dL (2.5-4.9)
[2018-06-06] MEDS: APIXABAN 2.5 MG TAB PO SCH ×2 (12:05→21:02)
[2018-06-06] MEDS ORDERED: NACL 0.9% 500 ML IV ONE (13:45)
[2018-06-06 13:49] LABS: BASOPHILS % (MANUAL) 0 % (0-2); EOSINOPHILS % (MANUAL) 1 % (0-4); LYMPHOCYTES % (MANUAL) 6 % (20-46); METAMYELOCYTES % 1 % (0-0); MONOCYTES % (MANUAL) 10 % (5-12); MYELOCYTES % 1 % (0-0)
[2018-06-06] MEDS: INSULIN LANTUS 100 UNITS/ML 10 ML VIAL SUBQ SCH (20:50)
[2018-06-06] MEDS: LATANOPROST 0.005% OP 2.5 ML BTL OP SCH (20:56)
[2018-06-06] MEDS ORDERED: INFLUENZA VIRUS VACCINE QUAD 0.5 ML SYR IMVAC PRN (21:05)
[2018-06-07] VITALS: BP 96/65
[2018-06-07] MEDS: DEXT 5% /NACL 0.9% 1,000 ML IV SCH ×3 (00:03→14:56)
[2018-06-07 04:00] VITALS: BP 107/74
[2018-06-07] MEDS: ALBUTEROL SULFATE/IPRATROPIU 3 ML SOL IH SCH ×6 (04:39→23:17)
[2018-06-07] MEDS: NACL 0.9% 1,000 ML IV SCH (05:08)
[2018-06-07 05:39] LABS: HEMATOCRIT 27.1 % (36-48); HEMOGLOBIN 8.5 g/dL (12.0-16.0); MEAN CORPUSCULAR HEMOGLOBIN 28 pg (27-31); MEAN CORPUSCULAR HGB CONC 31 g/dL (33-37); MEAN CORPUSCULAR VOLUME 90.1 fL (80-94); PLATELET COUNT (AUTO) 246 K/uL (140-450); RED CELL DISTRIBUTION WIDTH 15.6 % (11.6-13.7); WHITE BLOOD COUNT (AUTO) 10.8 K/uL (4.8-10.8)
[2018-06-07] MEDS: BLOOD GLUCOSE MONITORING 1 DEV DEV FS SCH ×5 (05:41→21:42)
[2018-06-07] MEDS: DEXTROSE 50% 50 ML SYR IVP PRN (05:42)
[2018-06-07 06:23] LABS: ANION GAP 10.3 (8-16); CARBON DIOXIDE 30.1 mmol/L (21-32); CREATININE 1.6 mg/dL (0.6-1.3); POTASSIUM 3.4 mmol/L (3.5-5.1)
[2018-06-07 06:34] LABS: MAGNESIUM 2.4 mg/dL (1.8-2.4); PHOSPHORUS 2.8 mg/dL (2.5-4.9)
[2018-06-07] MEDS: METOCLOPRAMIDE 10 MG TAB PO SCH ×3 (06:56→17:43)
[2018-06-07 06:57] LABS: EOSINOPHILS % (MANUAL) 3 % (0-4); LYMPHOCYTES % (MANUAL) 17 % (20-46); MONOCYTES % (MANUAL) 9 % (5-12)
[2018-06-07 06:58] LABS: METAMYELOCYTES % 1 % (0-0); MYELOCYTES % 1 % (0-0)
[2018-06-07 08:00] VITALS: BP 115/74
[2018-06-07] MEDS ORDERED: POTASSIUM CHLORIDE 10 MEQ TABER PO SCH (08:00)
[2018-06-07] MEDS: DOCUSATE SODIUM 100 MG GELCAP PO SCH ×2 (08:19→21:00)
[2018-06-07] MEDS: CARVEDILOL 3.125 MG TAB PO SCH ×2 (08:20→20:33)
[2018-06-07] MEDS: LACTOBACILLUS RHAMNOSUS GG 1 EACH CAP PO SCH (08:20)
[2018-06-07] MEDS: ASPIRIN 81 MG TAB.CHEW PO SCH (08:20)
[2018-06-07] MEDS: FUROSEMIDE 20 MG TAB PO SCH ×2 (08:20→20:34)
[2018-06-07] MEDS: MAGNESIUM OXIDE 400 MG TAB PO SCH (08:20)
[2018-06-07] MEDS: SENNA 8.6 MG TAB PO SCH (08:21)
[2018-06-07] MEDS: FERROUS SULFATE 325 MG TABEC PO SCH ×2 (08:21→20:31)
[2018-06-07] MEDS: SIMETHICONE 80 MG TAB.CHEW PO SCH ×3 (08:21→17:43)
[2018-06-07] MEDS: DILTIAZEM 120 MG CAPER PO SCH (08:21)
[2018-06-07] MEDS: ATORVASTATIN 20 MG TAB PO SCH (08:21)
[2018-06-07] MEDS: APIXABAN 2.5 MG TAB PO SCH ×2 (08:22→20:33)
[2018-06-07 12:00] VITALS: BP 103/70
[2018-06-07 16:00] VITALS: BP 111/67
[2018-06-07] MEDS: ALBUTEROL SULFATE/IPRATROPIU 3 ML SOL IH PRN (17:18)
[2018-06-07] MEDS: MORPHINE SULFATE 4 MG/ML SYR IVP PRN (19:40)
[2018-06-07 20:00] VITALS: BP 118/52
[2018-06-07] MEDS: LATANOPROST 0.005% OP 2.5 ML BTL OP SCH (20:35)
[2018-06-07] MEDS: MEROPENEM 500 MG in NACL 0.9% 50 ML IV SCH (20:37)
[2018-06-07] MEDS: INSULIN LANTUS 100 UNITS/ML 10 ML VIAL SUBQ SCH (21:43)
[2018-06-08] VITALS: BP 121/72
[2018-06-08] MEDS: ALBUTEROL SULFATE/IPRATROPIU 3 ML SOL IH SCH ×6 (02:56→23:03)
[2018-06-08] MEDS: DEXT 5% /NACL 0.9% 1,000 ML IV SCH ×3 (03:10→12:35)
[2018-06-08 04:00] VITALS: BP 121/72
[2018-06-08] MEDS: MEROPENEM 500 MG in NACL 0.9% 50 ML IV SCH ×3 (04:41→21:07)
[2018-06-08] MEDS: BLOOD GLUCOSE MONITORING 1 DEV DEV FS SCH ×4 (05:37→21:02)
[2018-06-08 06:45] LABS: ANION GAP 8.2 (8-16); CARBON DIOXIDE 30.3 mmol/L (21-32); CREATININE 1.3 mg/dL (0.6-1.3); POTASSIUM 3.5 mmol/L (3.5-5.1)
[2018-06-08 06:46] LABS: BASOPHILS % (AUTO) 0.1 % (0.0-2.0); EOSINOPHILS # (AUTO) 0.3 K/uL (0-0.4); EOSINOPHILS % (AUTO) 2.9 % (0.0-4.0); HEMATOCRIT 30.5 % (36-48); HEMOGLOBIN 9.7 g/dL (12.0-16.0); LYMPHOCYTES # (AUTO) 0.6 K/uL (2.5-16.5); LYMPHOCYTES % (AUTO) 5.7 % (20.5-51.1); MEAN CORPUSCULAR HEMOGLOBIN 29 pg (27-31); MEAN CORPUSCULAR HGB CONC 32 g/dL (33-37); MEAN CORPUSCULAR VOLUME 90.2 fL (80-94); MONOCYTES # (AUTO) 0.6 K/uL (0.8-1.0); MONOCYTES % (AUTO) 5.9 % (1.7-9.3); NEUTROPHILS # (AUTO) 8.9 K/uL (1.8-7.7); NEUTROPHILS % (AUTO) 85.4 % (42.2-75.2); PLATELET COUNT (AUTO) 247 K/uL (140-450); RED BLOOD CELL COUNT(AUTO) 3.38 MIL/uL (4.20-5.40); RED CELL DISTRIBUTION WIDTH 15.9 % (11.6-13.7); WHITE BLOOD COUNT (AUTO) 10.4 K/uL (4.8-10.8)
[2018-06-08] MEDS: METOCLOPRAMIDE 10 MG TAB PO SCH (06:48)
[2018-06-08 06:52] LABS: MAGNESIUM 2.1 mg/dL (1.8-2.4); PHOSPHORUS 2.5 mg/dL (2.5-4.9)
[2018-06-08 08:00] VITALS: BP 160/91
[2018-06-08] MEDS: SIMETHICONE 80 MG TAB.CHEW PO SCH (08:09)
[2018-06-08] MEDS: DILTIAZEM 120 MG CAPER PO SCH (08:09)
[2018-06-08] MEDS: DOCUSATE SODIUM 100 MG GELCAP PO SCH ×2 (08:09→21:07)
[2018-06-08] MEDS: FERROUS SULFATE 325 MG TABEC PO SCH ×2 (08:09→21:08)
[2018-06-08] MEDS: ATORVASTATIN 20 MG TAB PO SCH (08:09)
[2018-06-08] MEDS: CARVEDILOL 3.125 MG TAB PO SCH (08:10)
[2018-06-08] MEDS: LACTOBACILLUS RHAMNOSUS GG 1 EACH CAP PO SCH (08:10)
[2018-06-08] MEDS: MAGNESIUM OXIDE 400 MG TAB PO SCH (08:10)
[2018-06-08] MEDS: ASPIRIN 81 MG TAB.CHEW PO SCH (08:11)
[2018-06-08] MEDS: SENNA 8.6 MG TAB PO SCH (08:11)
[2018-06-08] MEDS: FUROSEMIDE 20 MG TAB PO SCH ×2 (08:11→21:09)
[2018-06-08] MEDS: APIXABAN 2.5 MG TAB PO SCH ×2 (08:19→21:10)
[2018-06-08 12:00] VITALS: BP 123/69
[2018-06-08 20:00] VITALS: BP 134/80
[2018-06-08] MEDS ORDERED: CARVEDILOL 6.25 MG TAB PO SCH (21:00)
[2018-06-08] MEDS: CARVEDILOL 12.5 MG TAB PO SCH (21:08)
[2018-06-08] MEDS: BISACODYL 10 MG SUPP RC PRN (21:34)
[2018-06-08] MEDS: INSULIN LANTUS 100 UNITS/ML 10 ML VIAL SUBQ SCH (21:46)
[2018-06-08] MEDS: LATANOPROST 0.005% OP 2.5 ML BTL OP SCH (21:53)
[2018-06-09] VITALS: BP 103/58
[2018-06-09] MEDS: ALBUTEROL SULFATE/IPRATROPIU 3 ML SOL IH SCH ×6 (03:51→23:09)
[2018-06-09 04:00] VITALS: BP 134/73
[2018-06-09] MEDS: MEROPENEM 500 MG in NACL 0.9% 50 ML IV SCH ×4 (04:56→20:39)
[2018-06-09] MEDS: BLOOD GLUCOSE MONITORING 1 DEV DEV FS SCH ×4 (06:50→20:44)
[2018-06-09 07:32] LABS: PHOSPHORUS 2.3 mg/dL (2.5-4.9)
[2018-06-09 07:39] LABS: ANION GAP 10.3 (8-16); CARBON DIOXIDE 29.6 mmol/L (21-32); CREATININE 1.2 mg/dL (0.6-1.3)
[2018-06-09 07:41] LABS: POTASSIUM 2.9 mmol/L (3.5-5.1)
[2018-06-09 07:42] LABS: BASOPHILS % (AUTO) 0.2 % (0.0-2.0); EOSINOPHILS # (AUTO) 0.2 K/uL (0-0.4); EOSINOPHILS % (AUTO) 2.1 % (0.0-4.0); HEMATOCRIT 29.8 % (36-48); HEMOGLOBIN 9.4 g/dL (12.0-16.0); LYMPHOCYTES # (AUTO) 0.8 K/uL (2.5-16.5); LYMPHOCYTES % (AUTO) 9.2 % (20.5-51.1); MEAN CORPUSCULAR HEMOGLOBIN 28 pg (27-31); MEAN CORPUSCULAR HGB CONC 32 g/dL (33-37); MEAN CORPUSCULAR VOLUME 89.8 fL (80-94); MONOCYTES # (AUTO) 0.9 K/uL (0.8-1.0); MONOCYTES % (AUTO) 10.4 % (1.7-9.3); NEUTROPHILS # (AUTO) 6.8 K/uL (1.8-7.7); NEUTROPHILS % (AUTO) 78.1 % (42.2-75.2); PLATELET COUNT (AUTO) 207 K/uL (140-450); RED BLOOD CELL COUNT(AUTO) 3.32 MIL/uL (4.20-5.40); RED CELL DISTRIBUTION WIDTH 16.1 % (11.6-13.7); WHITE BLOOD COUNT (AUTO) 8.7 K/uL (4.8-10.8)
[2018-06-09 08:00] VITALS: BP 131/64
[2018-06-09] MEDS: LACTOBACILLUS RHAMNOSUS GG 1 EACH CAP PO SCH ×2 (08:00→08:51)
[2018-06-09] MEDS: SENNA 8.6 MG TAB PO SCH ×2 (08:50→09:00)
[2018-06-09] MEDS: DOCUSATE SODIUM 100 MG GELCAP PO SCH ×3 (08:50→20:45)
[2018-06-09] MEDS: CARVEDILOL 12.5 MG TAB PO SCH ×2 (08:51→20:46)
[2018-06-09] MEDS: FUROSEMIDE 20 MG TAB PO SCH ×2 (08:51→20:45)
[2018-06-09] MEDS: MAGNESIUM OXIDE 400 MG TAB PO SCH (08:51)
[2018-06-09] MEDS: ASPIRIN 81 MG TAB.CHEW PO SCH (08:51)
[2018-06-09] MEDS: FERROUS SULFATE 325 MG TABEC PO SCH ×3 (08:52→20:45)
[2018-06-09] MEDS: DILTIAZEM 120 MG CAPER PO SCH (08:52)
[2018-06-09] MEDS: SODIUM PHOS / POTASSIUM PHOS 1 PKT PDR PO SCH ×2 (08:52→20:51)
[2018-06-09] MEDS: ATORVASTATIN 20 MG TAB PO SCH ×2 (08:52→09:00)
[2018-06-09] MEDS: APIXABAN 2.5 MG TAB PO SCH ×2 (08:53→20:49)
[2018-06-09] MEDS ORDERED: POTASSIUM CHLORIDE 40 MEQ, LIDOCAINE MPF 1% - 5 mL VIAL 25 MG in NACL 0.9% 250 ML IV SCH (09:00)
[2018-06-09 12:00] VITALS: BP 100/52
[2018-06-09] MEDS: DEXTROSE 50% 50 ML SYR IVP PRN (12:17)
[2018-06-09] MEDS: DEXT 5% /NACL 0.9% 1,000 ML IV SCH (12:22)
[2018-06-09 16:00] VITALS: BP 91/63
[2018-06-09 20:00] VITALS: BP 103/57
[2018-06-09] MEDS: LATANOPROST 0.005% OP 2.5 ML BTL OP SCH (20:46)
[2018-06-09] MEDS: INSULIN LANTUS 100 UNITS/ML 10 ML VIAL SUBQ SCH (20:48)
[2018-06-10] VITALS: BP 128/72
[2018-06-10] MEDS: DEXT 5% /NACL 0.9% 1,000 ML IV SCH (01:20)
[2018-06-10] MEDS: ALBUTEROL SULFATE/IPRATROPIU 3 ML SOL IH SCH ×6 (03:06→23:09)
[2018-06-10 04:00] VITALS: BP 122/57
[2018-06-10] MEDS: MEROPENEM 500 MG in NACL 0.9% 50 ML IV SCH ×3 (05:53→20:46)
[2018-06-10] MEDS: BLOOD GLUCOSE MONITORING 1 DEV DEV FS SCH ×4 (05:58→20:45)
[2018-06-10] MEDS: HYDROcodone/APAP 7.5/325 MG 1 TAB PO PRN (06:38)
[2018-06-10 07:51] LABS: BASOPHILS # (AUTO) 0.1 K/uL (0.00-0.22); BASOPHILS % (AUTO) 0.7 % (0.0-2.0); EOSINOPHILS # (AUTO) 0.3 K/uL (0-0.4); EOSINOPHILS % (AUTO) 3.3 % (0.0-4.0); HEMATOCRIT 26.7 % (36-48); HEMOGLOBIN 8.6 g/dL (12.0-16.0); LYMPHOCYTES # (AUTO) 1.8 K/uL (2.5-16.5); MEAN CORPUSCULAR HEMOGLOBIN 29 pg (27-31); MEAN CORPUSCULAR HGB CONC 32 g/dL (33-37); MEAN CORPUSCULAR VOLUME 89.4 fL (80-94); MONOCYTES % (AUTO) 11.6 % (1.7-9.3); NEUTROPHILS # (AUTO) 5.3 K/uL (1.8-7.7); NEUTROPHILS % (AUTO) 63.4 % (42.2-75.2); PLATELET COUNT (AUTO) 185 K/uL (140-450); RED BLOOD CELL COUNT(AUTO) 2.99 MIL/uL (4.20-5.40); RED CELL DISTRIBUTION WIDTH 15.9 % (11.6-13.7); WHITE BLOOD COUNT (AUTO) 8.4 K/uL (4.8-10.8)
[2018-06-10 08:00] VITALS: BP 122/65
[2018-06-10 08:11] LABS: ANION GAP 9.9 (8-16); CARBON DIOXIDE 30.7 mmol/L (21-32); CREATININE 1.2 mg/dL (0.6-1.3); POTASSIUM 3.6 mmol/L (3.5-5.1)
[2018-06-10 08:13] LABS: MAGNESIUM 1.8 mg/dL (1.8-2.4); PHOSPHORUS 2.7 mg/dL (2.5-4.9)
[2018-06-10] MEDS: FUROSEMIDE 20 MG TAB PO SCH ×2 (08:49→20:49)
[2018-06-10] MEDS: DOCUSATE SODIUM 100 MG GELCAP PO SCH ×2 (08:50→20:47)
[2018-06-10] MEDS: LACTOBACILLUS RHAMNOSUS GG 1 EACH CAP PO SCH (08:50)
[2018-06-10] MEDS: FERROUS SULFATE 325 MG TABEC PO SCH ×2 (08:52→20:48)
[2018-06-10] MEDS: MAGNESIUM OXIDE 400 MG TAB PO SCH (08:52)
[2018-06-10] MEDS: ATORVASTATIN 20 MG TAB PO SCH (08:53)
[2018-06-10] MEDS: DILTIAZEM 120 MG CAPER PO SCH (08:54)
[2018-06-10] MEDS: CARVEDILOL 12.5 MG TAB PO SCH ×2 (08:54→20:48)
[2018-06-10] MEDS: ASPIRIN 81 MG TAB.CHEW PO SCH (08:54)
[2018-06-10] MEDS: SENNA 8.6 MG TAB PO SCH (09:00)
[2018-06-10] MEDS: APIXABAN 2.5 MG TAB PO SCH ×2 (09:00→20:57)
[2018-06-10] MEDS: INSULIN LISPRO SLIDING SCALE 100 UNITS/ML VIAL SUBQ PRN (11:44)
[2018-06-10 12:00] VITALS: BP 123/63
[2018-06-10] MEDS ORDERED: Z-GUARD PASTE TP PRN (15:05)
[2018-06-10 16:00] VITALS: BP 131/65
[2018-06-10 20:00] VITALS: BP 126/56
[2018-06-10] MEDS: LATANOPROST 0.005% OP 2.5 ML BTL OP SCH (20:47)
[2018-06-10] MEDS: INSULIN LANTUS 100 UNITS/ML 10 ML VIAL SUBQ SCH (20:49)
[2018-06-11 00:15] VITALS: BP 125/63
[2018-06-11] MEDS: ALBUTEROL SULFATE/IPRATROPIU 3 ML SOL IH SCH ×6 (02:59→23:33)
[2018-06-11] MEDS: DEXT 5% /NACL 0.9% 1,000 ML IV SCH (04:01)
[2018-06-11] MEDS: MEROPENEM 500 MG in NACL 0.9% 50 ML IV SCH ×3 (04:42→20:22)
[2018-06-11 04:55] VITALS: BP 132/61
[2018-06-11] MEDS: BLOOD GLUCOSE MONITORING 1 DEV DEV FS SCH ×4 (05:41→20:21)
[2018-06-11 08:00] VITALS: BP 140/67
[2018-06-11] MEDS: LACTOBACILLUS RHAMNOSUS GG 1 EACH CAP PO SCH (09:55)
[2018-06-11] MEDS: FUROSEMIDE 20 MG TAB PO SCH ×2 (09:55→20:26)
[2018-06-11] MEDS: SENNA 8.6 MG TAB PO SCH (09:56)
[2018-06-11] MEDS: FERROUS SULFATE 325 MG TABEC PO SCH ×2 (09:56→20:27)
[2018-06-11] MEDS: MAGNESIUM OXIDE 400 MG TAB PO SCH (09:56)
[2018-06-11] MEDS: DOCUSATE SODIUM 100 MG GELCAP PO SCH ×2 (09:56→20:26)
[2018-06-11] MEDS: ASPIRIN 81 MG TAB.CHEW PO SCH (09:56)
[2018-06-11] MEDS: APIXABAN 2.5 MG TAB PO SCH ×2 (09:59→20:29)
[2018-06-11] MEDS: CARVEDILOL 12.5 MG TAB PO SCH ×2 (10:00→20:25)
[2018-06-11] MEDS: DILTIAZEM 120 MG CAPER PO SCH (10:00)
[2018-06-11] MEDS: ATORVASTATIN 20 MG TAB PO SCH (10:12)
[2018-06-11 12:00] VITALS: BP 128/75
[2018-06-11 16:00] VITALS: BP 145/77
[2018-06-11 20:00] VITALS: BP 110/59
[2018-06-11] MEDS: INSULIN LANTUS 100 UNITS/ML 10 ML VIAL SUBQ SCH (20:39)
[2018-06-11] MEDS: LATANOPROST 0.005% OP 2.5 ML BTL OP SCH (20:45)
[2018-06-12] MEDS: DEXT 5% /NACL 0.9% 1,000 ML IV SCH ×2 (02:20→20:30)
[2018-06-12] MEDS: ALBUTEROL SULFATE/IPRATROPIU 3 ML SOL IH SCH ×6 (03:23→23:16)
[2018-06-12] MEDS: MEROPENEM 500 MG in NACL 0.9% 50 ML IV SCH ×3 (04:56→20:39)
[2018-06-12] MEDS: BLOOD GLUCOSE MONITORING 1 DEV DEV FS SCH ×4 (06:18→20:38)
[2018-06-12 07:54] LABS: BASOPHILS % (AUTO) 0.4 % (0.0-2.0); EOSINOPHILS # (AUTO) 0.3 K/uL (0-0.4); EOSINOPHILS % (AUTO) 3.6 % (0.0-4.0); HEMATOCRIT 26.7 % (36-48); HEMOGLOBIN 8.5 g/dL (12.0-16.0); LYMPHOCYTES # (AUTO) 1.6 K/uL (2.5-16.5); LYMPHOCYTES % (AUTO) 19.3 % (20.5-51.1); MEAN CORPUSCULAR HEMOGLOBIN 29 pg (27-31); MEAN CORPUSCULAR HGB CONC 32 g/dL (33-37); MEAN CORPUSCULAR VOLUME 89.7 fL (80-94); MONOCYTES # (AUTO) 0.9 K/uL (0.8-1.0); MONOCYTES % (AUTO) 11.3 % (1.7-9.3); NEUTROPHILS # (AUTO) 5.3 K/uL (1.8-7.7); NEUTROPHILS % (AUTO) 65.4 % (42.2-75.2); PLATELET COUNT (AUTO) 187 K/uL (140-450); RED BLOOD CELL COUNT(AUTO) 2.98 MIL/uL (4.20-5.40); RED CELL DISTRIBUTION WIDTH 16.3 % (11.6-13.7); WHITE BLOOD COUNT (AUTO) 8.1 K/uL (4.8-10.8)
[2018-06-12 08:00] VITALS: BP 126/73
[2018-06-12 08:13] LABS: ANION GAP 12.4 (8-16); CARBON DIOXIDE 28.7 mmol/L (21-32); POTASSIUM 3.1 mmol/L (3.5-5.1)
[2018-06-12 08:16] LABS: MAGNESIUM 1.8 mg/dL (1.8-2.4); PHOSPHORUS 2.7 mg/dL (2.5-4.9)
[2018-06-12] MEDS: FERROUS SULFATE 325 MG TABEC PO SCH ×2 (08:28→20:52)
[2018-06-12] MEDS: ATORVASTATIN 20 MG TAB PO SCH (08:28)
[2018-06-12] MEDS: MAGNESIUM OXIDE 400 MG TAB PO SCH (08:28)
[2018-06-12] MEDS: DILTIAZEM 120 MG CAPER PO SCH (08:28)
[2018-06-12] MEDS: FUROSEMIDE 20 MG TAB PO SCH ×2 (08:28→20:52)
[2018-06-12] MEDS: SENNA 8.6 MG TAB PO SCH (08:28)
[2018-06-12] MEDS: LACTOBACILLUS RHAMNOSUS GG 1 EACH CAP PO SCH (08:28)
[2018-06-12] MEDS: CARVEDILOL 12.5 MG TAB PO SCH ×2 (08:29→20:50)
[2018-06-12] MEDS: DOCUSATE SODIUM 100 MG GELCAP PO SCH ×2 (08:29→20:50)
[2018-06-12] MEDS: ASPIRIN 81 MG TAB.CHEW PO SCH (08:29)
[2018-06-12] MEDS: APIXABAN 2.5 MG TAB PO SCH ×2 (08:30→20:51)
[2018-06-12] MEDS ORDERED: POTASSIUM CHLORIDE 40 MEQ, LIDOCAINE MPF 1% - 5 mL VIAL 25 MG in NACL 0.9% 250 ML IV ONE (09:25)
[2018-06-12] MEDS ORDERED: POTASSIUM CHLORIDE 10 MEQ TABER PO SCH (10:00)
[2018-06-12 16:00] VITALS: BP 108/67
[2018-06-12 20:00] VITALS: BP 108/57
[2018-06-12] MEDS: LATANOPROST 0.005% OP 2.5 ML BTL OP SCH (20:48)
[2018-06-12] MEDS: INSULIN LANTUS 100 UNITS/ML 10 ML VIAL SUBQ SCH (22:46)
[2018-06-13] MEDS: ALBUTEROL SULFATE/IPRATROPIU 3 ML SOL IH SCH ×6 (03:17→23:59)
[2018-06-13] MEDS: MEROPENEM 500 MG in NACL 0.9% 50 ML IV SCH ×3 (05:31→21:24)
[2018-06-13] MEDS: BLOOD GLUCOSE MONITORING 1 DEV DEV FS SCH ×4 (05:39→21:22)
[2018-06-13 08:00] VITALS: BP 123/76
[2018-06-13] MEDS: LACTOBACILLUS RHAMNOSUS GG 1 EACH CAP PO SCH (08:39)
[2018-06-13] MEDS: DOCUSATE SODIUM 100 MG GELCAP PO SCH ×2 (08:40→21:23)
[2018-06-13] MEDS: DILTIAZEM 120 MG CAPER PO SCH (08:40)
[2018-06-13] MEDS: ATORVASTATIN 20 MG TAB PO SCH (08:41)
[2018-06-13] MEDS: FUROSEMIDE 20 MG TAB PO SCH ×2 (08:41→21:24)
[2018-06-13] MEDS: POTASSIUM CHLORIDE 10 MEQ TABER PO SCH (08:41)
[2018-06-13] MEDS: FERROUS SULFATE 325 MG TABEC PO SCH ×2 (08:41→21:24)
[2018-06-13] MEDS: ASPIRIN 81 MG TAB.CHEW PO SCH (08:41)
[2018-06-13] MEDS: MAGNESIUM OXIDE 400 MG TAB PO SCH (08:41)
[2018-06-13] MEDS: SENNA 8.6 MG TAB PO SCH (08:41)
[2018-06-13] MEDS: CARVEDILOL 12.5 MG TAB PO SCH ×2 (08:42→21:23)
[2018-06-13] MEDS: APIXABAN 2.5 MG TAB PO SCH ×2 (08:42→21:31)
[2018-06-13 16:00] VITALS: BP 104/50
[2018-06-13] MEDS: DEXT 5% /NACL 0.9% 1,000 ML IV SCH (20:30)
[2018-06-13] MEDS: INSULIN LANTUS 100 UNITS/ML 10 ML VIAL SUBQ SCH (21:00)
[2018-06-13] MEDS: LATANOPROST 0.005% OP 2.5 ML BTL OP SCH (21:25)
[2018-06-13] MEDS: HYDROcodone/APAP 7.5/325 MG 1 TAB PO PRN (21:32)
[2018-06-13] MEDS ORDERED: NYSTATIN POW 100 MU/GM 15 GM BTL TP PRN (22:10)
[2018-06-14] VITALS: BP 129/66
[2018-06-14] MEDS: ALBUTEROL SULFATE/IPRATROPIU 3 ML SOL IH SCH ×6 (03:03→23:20)
[2018-06-14] MEDS: MEROPENEM 500 MG in NACL 0.9% 50 ML IV SCH ×3 (05:54→20:58)
[2018-06-14] MEDS: BLOOD GLUCOSE MONITORING 1 DEV DEV FS SCH ×4 (06:05→21:10)
[2018-06-14 08:00] VITALS: BP 116/70
[2018-06-14] MEDS: LACTOBACILLUS RHAMNOSUS GG 1 EACH CAP PO SCH (09:19)
[2018-06-14] MEDS: POTASSIUM CHLORIDE 10 MEQ TABER PO SCH (09:19)
[2018-06-14] MEDS: DOCUSATE SODIUM 100 MG GELCAP PO SCH ×2 (09:20→20:59)
[2018-06-14] MEDS: SENNA 8.6 MG TAB PO SCH (09:20)
[2018-06-14] MEDS: ATORVASTATIN 20 MG TAB PO SCH (09:20)
[2018-06-14] MEDS: FERROUS SULFATE 325 MG TABEC PO SCH ×2 (09:20→21:00)
[2018-06-14] MEDS: MAGNESIUM OXIDE 400 MG TAB PO SCH (09:21)
[2018-06-14] MEDS: FUROSEMIDE 20 MG TAB PO SCH ×2 (09:21→21:00)
[2018-06-14] MEDS: ASPIRIN 81 MG TAB.CHEW PO SCH (09:21)
[2018-06-14] MEDS: CARVEDILOL 12.5 MG TAB PO SCH ×2 (09:21→21:00)
[2018-06-14] MEDS: DILTIAZEM 120 MG CAPER PO SCH (09:22)
[2018-06-14] MEDS: APIXABAN 2.5 MG TAB PO SCH ×2 (09:34→21:02)
[2018-06-14 16:00] VITALS: BP 127/61
[2018-06-14 19:52] VITALS: BP 141/71
[2018-06-14] MEDS: DEXT 5% /NACL 0.9% 1,000 ML IV SCH (20:30)
[2018-06-14] MEDS: INSULIN LANTUS 100 UNITS/ML 10 ML VIAL SUBQ SCH (21:00)
[2018-06-14] MEDS: LATANOPROST 0.005% OP 2.5 ML BTL OP SCH (21:11)
[2018-06-15 00:20] VITALS: BP 138/58
[2018-06-15] MEDS: HYDROcodone/APAP 7.5/325 MG 1 TAB PO PRN ×2 (02:22→20:55)
[2018-06-15] MEDS: ALBUTEROL SULFATE/IPRATROPIU 3 ML SOL IH SCH ×6 (03:11→23:12)
[2018-06-15] MEDS: MEROPENEM 500 MG in NACL 0.9% 50 ML IV SCH ×3 (04:34→20:35)
[2018-06-15] MEDS: BLOOD GLUCOSE MONITORING 1 DEV DEV FS SCH ×4 (06:04→20:44)
[2018-06-15 08:00] VITALS: BP 115/70
[2018-06-15] MEDS: LACTOBACILLUS RHAMNOSUS GG 1 EACH CAP PO SCH (08:52)
[2018-06-15] MEDS: SENNA 8.6 MG TAB PO SCH (08:53)
[2018-06-15] MEDS: FERROUS SULFATE 325 MG TABEC PO SCH ×2 (08:53→20:45)
[2018-06-15] MEDS: MAGNESIUM OXIDE 400 MG TAB PO SCH (08:53)
[2018-06-15] MEDS: ATORVASTATIN 20 MG TAB PO SCH (08:53)
[2018-06-15] MEDS: CARVEDILOL 12.5 MG TAB PO SCH ×2 (08:53→20:45)
[2018-06-15] MEDS: POTASSIUM CHLORIDE 10 MEQ TABER PO SCH (08:53)
[2018-06-15] MEDS: ASPIRIN 81 MG TAB.CHEW PO SCH (08:53)
[2018-06-15] MEDS: DILTIAZEM 120 MG CAPER PO SCH (08:54)
[2018-06-15] MEDS: FUROSEMIDE 20 MG TAB PO SCH ×2 (08:54→20:45)
[2018-06-15] MEDS: DOCUSATE SODIUM 100 MG GELCAP PO SCH ×2 (09:00→20:44)
[2018-06-15] MEDS: APIXABAN 2.5 MG TAB PO SCH ×2 (09:04→20:47)
[2018-06-15] MEDS ORDERED: DOCU-299 PO (09:59)
[2018-06-15] MEDS ORDERED: MYCPWD TP (09:59)
[2018-06-15] MEDS ORDERED: MOM PO (09:59)
[2018-06-15] MEDS ORDERED: HUMSLIDE SUBQ (09:59)
[2018-06-15] MEDS ORDERED: ZGUARD TP (09:59)
[2018-06-15] MEDS ORDERED: CARV12.52 PO (09:59)
[2018-06-15] MEDS ORDERED: LACT10CA PO (09:59)
[2018-06-15] MEDS ORDERED: ATOR20TA40 PO (09:59)
[2018-06-15] MEDS ORDERED: SENN-74 PO (09:59)
[2018-06-15] MEDS ORDERED: GLUC-805 FS (09:59)
[2018-06-15] MEDS ORDERED: BISA10SU46 RC (09:59)
[2018-06-15] MEDS ORDERED: MERO500P9 IV (10:00)
[2018-06-15 16:00] VITALS: BP 118/74
[2018-06-15] MEDS: DEXT 5% /NACL 0.9% 1,000 ML IV SCH (20:30)
[2018-06-15 20:40] VITALS: BP 116/64
[2018-06-15] MEDS: LATANOPROST 0.005% OP 2.5 ML BTL OP SCH (20:44)
[2018-06-16] VITALS: BP 99/56
[2018-06-16] MEDS: ALBUTEROL SULFATE/IPRATROPIU 3 ML SOL IH SCH ×4 (03:18→14:58)
[2018-06-16] MEDS: MEROPENEM 500 MG in NACL 0.9% 50 ML IV SCH ×2 (04:43→12:33)
[2018-06-16] MEDS: BLOOD GLUCOSE MONITORING 1 DEV DEV FS SCH ×2 (05:53→11:39)
[2018-06-16 08:00] VITALS: BP 103/57
[2018-06-16] MEDS: DOCUSATE SODIUM 100 MG GELCAP PO SCH (08:54)
[2018-06-16] MEDS: APIXABAN 2.5 MG TAB PO SCH (08:56)
[2018-06-16] MEDS: POTASSIUM CHLORIDE 10 MEQ TABER PO SCH (08:56)
[2018-06-16] MEDS: SENNA 8.6 MG TAB PO SCH (08:57)
[2018-06-16] MEDS: ATORVASTATIN 20 MG TAB PO SCH (08:57)
[2018-06-16] MEDS: DILTIAZEM 120 MG CAPER PO SCH (08:58)
[2018-06-16] MEDS: LACTOBACILLUS RHAMNOSUS GG 1 EACH CAP PO SCH (08:58)
[2018-06-16] MEDS: FUROSEMIDE 20 MG TAB PO SCH (08:59)
[2018-06-16] MEDS: FERROUS SULFATE 325 MG TABEC PO SCH (08:59)
[2018-06-16] MEDS: CARVEDILOL 12.5 MG TAB PO SCH (08:59)
[2018-06-16] MEDS: ASPIRIN 81 MG TAB.CHEW PO SCH (08:59)
[2018-06-16] MEDS: HYDROcodone/APAP 7.5/325 MG 1 TAB PO PRN (09:00)
[2018-06-16] MEDS: MAGNESIUM OXIDE 400 MG TAB PO SCH (09:00)
[2018-06-16] MEDS: INSULIN LISPRO SLIDING SCALE 100 UNITS/ML VIAL SUBQ PRN (11:39)
[2018-06-16 13:51] VITALS: BP 103/51
== END 2018-06-16 15:15 | DRG 870 ==
LOC: MED 21:59 → MTU 06-03 00:18
PROVIDERS: ADMIT General Practice; ATTEND General Practice
PROC: 5A1955Z Respiratory Ventilation, Greater than 96 Consecutive Hours (ICD-10-PCS; principal; 2018-06-03)
DX: A41.89 Other specified sepsis (principal); J69.0 Pneumonitis due to inhalation of food and vomit; E43 Unspecified severe protein-calorie malnutrition; R53.2 Functional quadriplegia; I50.43 Acute on chronic combined systolic (congestive) and diastolic (congestive) heart failure; N17.0 Acute kidney failure with tubular necrosis; J96.21 Acute and chronic respiratory failure with hypoxia; J44.1 Chronic obstructive pulmonary disease with (acute) exacerbation; N39.0 Urinary tract infection, site not specified; J44.0 Chronic obstructive pulmonary disease with (acute) lower respiratory infection; K56.609 Unspecified intestinal obstruction, unspecified as to partial versus complete obstruction; K56.7 Ileus, unspecified; J98.11 Atelectasis; Z68.44 Body mass index [BMI] 60.0-69.9, adult; Z99.11 Dependence on respirator [ventilator] status; I48.91 Unspecified atrial fibrillation; E11.65 Type 2 diabetes mellitus with hyperglycemia; E11.51 Type 2 diabetes mellitus with diabetic peripheral angiopathy without gangrene; I11.0 Hypertensive heart disease with heart failure; K21.9 Gastro-esophageal reflux disease without esophagitis; E66.01 Morbid (severe) obesity due to excess calories; E78.5 Hyperlipidemia, unspecified; K56.41 Fecal impaction; E11.40 Type 2 diabetes mellitus with diabetic neuropathy, unspecified; D63.8 Anemia in other chronic diseases classified elsewhere; E86.0 Dehydration; E87.6 Hypokalemia; L30.8 Other specified dermatitis; R13.10 Dysphagia, unspecified; Z71.3 Dietary counseling and surveillance; Z86.14 Personal history of Methicillin resistant Staphylococcus aureus infection; Z79.01 Long term (current) use of anticoagulants; Z79.82 Long term (current) use of aspirin; Z79.899 Other long term (current) drug therapy; Z93.0 Tracheostomy status; Z79.4 Long term (current) use of insulin
CPT/HCPCS: 36415; 71045; 71250; 74018; 80048; 80053; 80200; 80305; 81001; 82150; 82948; 83036; 83605; 83690; 83735; 83880; 84100; 84436; 84439; 84443; 84479; 84484; 85025; 85610; 85730; 87040; 87070; 87081; 87086; 87186; 87205; 92610; 93005; 93970; 94003; 94640; 96365; 96375; 99285; J0696; J1200; J1815; J1956; J2001; J2060; J2185; J2270; J2543; J2920; J2930; J3260; J3370; J3475; J3480; J3490; J7030; J7042; J7060; J7613; J7620; J7644; J8597; Q0092